=== PATIENT | male | born 1945 | race Caucasian/White ===

== ENCOUNTER 2016-03-16 20:46 | Inpatient (IN) | payer OTHER ==
[~2016-03-16] VITALS: Ht 177.8 cm; Wt 94.0 kg
[~2016-03-16 20:46] MED LIST: ASPI81TA28 PO; ISON300T4 PO; LSN/10125 PO; MULT-916 PO
[2016-03-16] MEDS ORDERED: SODIUM CHLORIDE 0.9% 1000ML 1,000 ML IV STA (20:57)
[2016-03-16] MEDS ORDERED: ALUMINUM/MAGNESIUM SUSP 30 ML UDC PO STA (20:57)
[2016-03-16] MEDS ORDERED: LIDOCAINE HCL/D5W 4 MG/ML 2000 MG/500 ML BAG IV STA (20:57)
[2016-03-16] MEDS ORDERED: PANTOprazole INJ 40 MG in SYRINGE 0 ML IV ONE (21:00)
--- NOTE | 2016-03-16 21:13 | EMERGENCY ROOM VISIT NOTE ---
History Report prepared by Reyna: Letty Moore Under the Supervision of: Dr. Darryl Floyd D.O. 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 The patient describes the pain as an ache and is worsened when he takes a deep breath. The patient states that he was lifting an object when the pain started. The patient states that he felt he had indigestion earlier and took a Tums. The patient's daughter states that the patient takes aspirin daily along with his Lisinopril for hypertension. The patient states that he also has been experiencing an ongoing clear productive cough for about 5 months but denies any fevers. The patient states that he had a stress done in 2011 with no significant findings. He denies any history of blood clots in his lungs or legs. 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 A total of 10 systems reviewed and were otherwise negative. Past Medical & Surgical Medical Problems: (1) Hypertension (2) Irritable bowel syndrome (3) Ventricular tachycardia Surgical Problems: (1) Hx of cholecystectomy Family History FH: myocardial infarction Pacemaker Social History Smoking Status: Never Smoker Alcohol Use: none Marital Status: Occupation Status: employed Current/Historical Medications Scheduled Aspirin (Aspirin Ec), 81 MG PO DAILY Hctz/Lisinopril (Lisinopril/Hctz 10/12.5 Mg), 1 TAB PO DAILY Multiple Vitamins W/ Minerals (Multivitamin Adults 50+), 1 TAB PO DAILY Allergies Coded Allergies: BEE STING (Verified Allergy, Severe, swelling, 03/16/16) Isoniazid (Unverified Allergy, Unknown, "HYPOTENSION, HYPERHIDROSIS", 03/16) Propoxyphene (Verified Allergy, Unknown, 03/16/16) Wasp (Verified Allergy, Unknown, SWELLING, 03/16/16) Morphine (Verified Adverse Reaction, Severe, DECREASES B/P AND PULSE, 03/16) Physical Exam Vital Signs Date Time Temp Pulse Resp B/P Pulse Ox O2 Delivery O2 Flow Rate FiO2 03/16/16 23:35 63 20 151/83 97 03/16/16 23:14 56 139/88 97 Room Air 03/16/16 23:05 78 03/16/16 22:59 54 138/93 95 Room Air 03/16/16 22:45 68 20 157/72 95 Room Air 03/16/16 22:15 76 20 170/97 96 Room Air 03/16/16 22:00 73 18 139/85 97 Room Air 03/16/16 21:45 78 20 139/72 96 Room Air 03/16/16 21:30 69 18 157/71 95 Room Air 03/16/16 21:12 75 03/16/16 21:10 96 Room Air 03/16/16 21:07 96 Room Air 03/16/16 21:06 74 18 164/74 96 Room Air 03/16/16 20:47 36.7 43 18 183/78 94 Room Air Physical Exam GENERAL: Patient is awake, alert, and in no acute distress. Patient is resting comfortably and showing no signs of anxiety EYES: The conjunctivae are clear. The pupils are round and reactive. EARS, NOSE, MOUTH AND THROAT: The nose is without any evidence of any deformity. Mucous membranes are moist tongue is midline NECK: The neck is nontender and supple. RESPIRATORY: Normal respiratory effort is noted there is no evidence of wheezing rhonchi or rales CARDIOVASCULAR: Ectopy noted to auscultation. no definite murmur was appreciated. GASTROINTESTINAL: The abdomen is soft. Bowel sounds are present in all quadrants. Abdomen is nontender MUSCULOSKELETAL/EXTREMITIES: There is no evidence of gross deformity full range of motion is noted in the hips and shoulders SKIN: There is no obvious evidence of any rash. There are no petechiae, pallor or cyanosis noted. Trace pedal edema noted bilaterally. NEUROLOGIC: Patient is awake alert and oriented x3. Medical Decision & Procedures ER Provider Diagnostic Interpretation: X-ray results as stated below per interpretation by me and the radiologist. SINGLE VIEW CHEST CLINICAL HISTORY: Atypical chest pain. FINDINGS: An AP, portable, upright chest radiograph is compared to study dated 08/28/2015. The examination is degraded by portable technique, apical lordotic positioning, and patient rotation. Cardiac pads are in place. The heart is enlarged and there is atherosclerotic calcification of the thoracic aorta. There is mild central pulmonary vascular congestion. Chronic interstitial thickening is similar to previous. No airspace consolidation, large pleural effusion, or pneumothorax is seen. The skeletal structures are osteopenic. The bony thorax is grossly intact. IMPRESSION: Cardiomegaly with evidence of mild congestive failure. Electronically signed by: Guanaco Escobar M.D. 03/16/2016 9:30 PM Dictated Date/Time: 03/16/2016 9:29 PM Laboratory Results 03/16/16 21:00 Red Blood Count 4.73, Mean Corpuscular Volume 90.3, Mean Corpuscular Hemoglobin 31.5, Mean Corpuscular Hemoglobin Concent 34.9, Mean Platelet Volume 9.6, Neutrophils (%) (Auto) 53.3, Lymphocytes (%) (Auto) 36.1, Monocytes (%) (Auto) 8.5, Eosinophils (%) (Auto) 1.7, Basophils (%) (Auto) 0.3, Neutrophils # (Auto) 3.77, Lymphocytes # (Auto) 2.55, Monocytes # (Auto) 0.60, Eosinophils # (Auto) 0.12, Basophils # (Auto) 0.02 03/16/16 21:00 Test 03/16/16 21:00 03/16/16 21:09 White Blood Count 7.07 K/uL (4.8-10.8) Red Blood Count 4.73 M/uL (4.7-6.1) Hemoglobin 14.9 g/dL (14.0-18.0) Hematocrit 42.7 % (42-52) Mean Corpuscular Volume 90.3 fL (80-100) Mean Corpuscular Hemoglobin 31.5 pg (25-34) Mean Corpuscular Hemoglobin Concent 34.9 g/dl (32-36) Platelet Count 187 K/uL (130-400) Mean Platelet Volume 9.6 fL (7.4-10.4) Neutrophils (%) (Auto) 53.3 % Lymphocytes (%) (Auto) 36.1 % Monocytes (%) (Auto) 8.5 % Eosinophils (%) (Auto) 1.7 % Basophils (%) (Auto) 0.3 % Neutrophils # (Auto) 3.77 K/uL (1.4-6.5) Lymphocytes # (Auto) 2.55 K/uL (1.2-3.4) Monocytes # (Auto) 0.60 K/uL (0.11-0.59) Eosinophils # (Auto) 0.12 K/uL (0-0.5) Basophils # (Auto) 0.02 K/uL (0-0.2) RDW Standard Deviation 45.3 fL (36.4-46.3) RDW Coefficient of Variation 13.7 % (11.5-14.5) Immature Granulocyte % (Auto) 0.1 % Immature Granulocyte # (Auto) 0.01 K/uL (0.00-0.02) Prothrombin Time 10.7 SECONDS (9.0-12.0) Prothromb Time International Ratio 1.0 (0.9-1.1) Activated Partial Thromboplast Time 27.2 SECONDS (21.0-31.0) Partial Thromboplastin Ratio 1.0 Anion Gap 11.0 mmol/L (3-11) Est Creatinine Clear Calc Drug Dose 60.6 ml/min Estimated GFR () 63.2 Estimated GFR (Non- 54.5 BUN/Creatinine Ratio 16.1 (10-20) Calcium Level 9.9 mg/dl (8.5-10.1) Magnesium Level 2.1 mg/dl (1.8-2.4) Total Bilirubin 0.8 mg/dl (0.2-1) Direct Bilirubin 0.1 mg/dl (0-0.2) Aspartate Amino Transf (AST/SGOT) 20 U/L (15-37) Alanine Aminotransferase (ALT/SGPT) 16 U/L (12-78) Alkaline Phosphatase 87 U/L (45-117) Total Creatine Kinase 77 U/L (39-308) Creatine Kinase MB 2.5 ng/ml (0.5-3.6) Creatine Kinase MB Ratio 3.2 (0-3.0) Pro-B-Type Natriuretic Peptide 667 pg/ml (0-900) Total Protein 7.4 gm/dl (6.4-8.2) Albumin 3.8 gm/dl (3.4-5.0) Lipase 156 U/L (73-393) Thyroid Stimulating Hormone (TSH) 2.700 uIu/ml (0.300-4.500) Free Thyroxine 1.35 ng/dl (0.80-1.60) Bedside Troponin I 0.020 ng/ml (0-0.045) Laboratory results per my review. Medications Administered Medications (Trade) Dose Ordered Sig/Leonidas Route Start Time Stop Time Status Last Admin Dose Admin Sodium Chloride (Nss 1000ml) 1,000 ml @ 999 mls/hr Q1H1M STAT IV 03/16/16 20:57 03/16/16 21:57 DC 03/16/16 21:20 999 MLS/HR Al Hydroxide/Mg Hydroxide 30 ml 30 ml NOW STAT PO 03/16/16 20:57 03/16/16 21:00 DC 03/16/16 21:20 30 ML Pantoprazole Sodium/Syringe (Protonix Inj/ Syringe) 10 ml @ 5 mls/min NOW ONCE IV 03/16/16 21:00 03/16/16 21:01 DC 03/16/16 21:58 5 MLS/MIN Lidocaine HCl/ Dextrose 2000 mg 2,000 mg NOW STAT IV 03/16/16 20:57 03/16/16 21:00 DC 03/16/16 21:20 2,000 MG Amiodarone HCL/ Dextrose (Nexterone / D5w) 200 ml @ 33.3 mls/hr Q6H1M IV 03/16/16 23:30 03/17/16 05:30 03/16/16 23:28 33.3 MLS/HR ECG Indication: chest pain Rate (beats per minute): 84 Rhythm: sinus rhythm Findings: PVC (Frequent), other (No acute ST segment abnormalities. Nonsustained wide complex tachycardia noted.) Comparison ECG Date: August 28, 2015 Change: Changes are new compared to previous ECG. ED Course 2053: The patient was evaluated in room C5. A complete history and physical examination were performed. 2055: The patient was moved from C5 to B1. 2056: Ordered Lidocaine HCl/ Dextrose 2,000 mg IV, Maalox Susp 30 ml PO, NSS 1, 000 ml @ 999 mls/hr IV 2099: Ordered Pantoprazole Sodium 40 mg/ Syringe 10 ml @ 5 mls/min IV. 2129: Ordered Lidocaine HCl/ Dextrose 500 ml @ 30 mls/hr IV. 2144: I discussed the case with Dr. Valerio [facility] Hospitalist. He agreed to evaluate the patient for further management and care. Medical Decision Differential diagnosis: Etiologies such as cardiac ischemia, aortic dissection, pulmonary embolism, pneumonia, pneumothorax, musculoskeletal, infections, pericarditis, myocarditis , esophageal rupture, gastrointestinal, as well as others were entertained. Nursing notes reviewed. The patient's previous electronic medical records reviewed. The patient is a 70-year-old male who presented to the emergency department for an evaluation of chest pain. The patient was describing left-sided chest pain which started while he was doing heavy lifting this afternoon. The patient's also noticed episodes of palpitations. He denies having any dizziness or near- syncope. He was found have frequent PVCs but then had episodes of nonsustained wide complex tachycardia noted on the sweat band sewer. The patient was treated with aspirin and IV fluids and IV Lidocaine in the emergency department. On subsequent reevaluation he was feeling much better. I discussed the patient's laboratory and radiographic studies with him. I also discussed his case with the on-call [facility] hospitalist group. They've agreed to evaluate the patient in the emergency apartment for further management and disposition. Consults Time Called: 2129 Consulting Physician: Dr. Teodoro ZARATE [facility]. Returned Call: 2144 I discussed the case with Dr. Teodoro Carlin. He agreed to evaluate the patient for further management and care. Impression Primary Impression: Left sided chest pain Additional Impression: Nonsustained ventricular tachycardia Critical Care I have personally spent greater than 45 minutes of critical care time in the direct management of this patient. This includes bedside care, interpretation of diagnostic studies, and testing, discussion with consultants, patient, and family members, and other required patient management activities. This 45 minutes is in excess of all separately billable procedures. Scribe Attestation The scribe's documentation has been prepared under my direction and personally reviewed by me in its entirety. I confirm that the note above accurately reflects all work, treatment, procedures, and medical decision making performed by me. Departure Information Dispostion Being Evaluated By Hospitalist Referrals Jhonny Sanders M.D. (PCP) Problem Qualifiers
[2016-03-16 21:15] LABS: BASO % 0.3 %; BASO ABS # 0.02 K/uL (0-0.2); COMPLETE YES; EOS % 1.7 %; HEMATOCRIT 42.7 % (42-52); IG% 0.1 %; LYMPH % 36.1 %; LYMPH ABS # 2.55 K/uL (1.2-3.4); MEAN CELL VOLUME 90.3 fL (80-100); MEAN CORPUSCULAR HEMOGLOBIN 31.5 pg (25-34); MEAN CORPUSCULAR HGB CONC 34.9 g/dl (32-36); MEAN PLATELET VOLUME 9.6 fL (7.4-10.4); MONO % 8.5 %; NEUT % 53.3 %; PLATELET COUNT 187 K/uL (130-400); RED BLOOD COUNT 4.73 M/uL (4.7-6.1); WHITE BLOOD COUNT 7.07 K/uL (4.8-10.8)
[2016-03-16 21:26] LABS: PROTHROMBIN TIME (PATIENT) 10.7 SECONDS (9.0-12.0)
[2016-03-16] MEDS ORDERED: LIDOCAINE / D5W 4MG/ML DRIP 500 ML IV PRN (21:30)
[2016-03-16 21:32] LABS: BUN/CREATININE RATIO 16.1 (10-20); CALCIUM 9.9 mg/dl (8.5-10.1); CREATININE 1.3 mg/dl (0.60-1.40); MAGNESIUM 2.1 mg/dl (1.8-2.4); POTASSIUM 4.1 mmol/L (3.5-5.1)
--- NOTE | 2016-03-16 21:32 | DIAGNOSTIC IMAGING REPORT ---
SINGLE VIEW CHEST CLINICAL HISTORY: Atypical chest pain. FINDINGS: An AP, portable, upright chest radiograph is compared to study dated 08/28/2015. The examination is degraded by portable technique, apical lordotic positioning, and patient rotation. Cardiac pads are in place. The heart is enlarged and there is atherosclerotic calcification of the thoracic aorta. There is mild central pulmonary vascular congestion. Chronic interstitial thickening is similar to previous. No airspace consolidation, large pleural effusion, or pneumothorax is seen. The skeletal structures are osteopenic. The bony thorax is grossly intact. IMPRESSION: Cardiomegaly with evidence of mild congestive failure. Electronically signed by: Guanaco Escobar M.D. 03/16/2016 9:30 PM Dictated Date/Time: 03/16/2016 9:29 PM
[2016-03-16 21:41] LABS: CKMB/CK RATIO 3.2 (0-3.0); THYROID STIMULATING HORMONE 2.7 uIu/ml (0.300-4.500)
[2016-03-16] MEDS ORDERED: AMIODARONE IV BOLUS / DRIP IV STA (22:44)
[2016-03-16] MEDS ORDERED: LIDOCAINE / D5W 4MG/ML DRIP 500 ML IV SCH (22:45)
[2016-03-16] MEDS ORDERED: NITROGLYCERIN 0.4 MG SL PER TAB CHARGE SL PRN (23:00)
[2016-03-16] MEDS ORDERED: LORAZEPAM 2 MG/ML 1 ML VIAL IV PRN (23:00)
[2016-03-16] MEDS ORDERED: AMIODARONE / D5W 200 ML IV SCH (23:30)
[2016-03-16 23:45] VITALS: BP 152/84; PULSE 72; TEMP 36.6; Ht 177.8 cm; Wt 94.0 kg
[2016-03-17] VITALS (13 sets, daily range): BP systolic 103–140; BP diastolic 64–97; PULSE 49–74; TEMP 36.4–36.7; O2SAT 95–98
[2016-03-17] MEDS ORDERED: HEPARIN 25,000 UNIT/500ML D5W 500 ML IV PRN (01:00)
[2016-03-17] MEDS: NSS + 20MEQ KCL 1000ML 1,000 ML IV SCH ×2 (03:15→11:00)
[2016-03-17] MEDS ORDERED: AMIODARONE / D5W 200 ML IV SCH (05:30)
--- NOTE | 2016-03-17 05:57 | History and Physical ---
History & Physical Date & Time of Service: Mar 17, 2016 at 05:48 Chief Complaint: Ventricular Tachycardia Primary Care Physician: Jhonny Sanders M.D. History of Present Illness Source: patient, spouse The patient is a 70-year-old male who presents emergency department with left- sided pleuritic chest pain that began about 4 hours prior to arrival. He has had a cough productive of clear sputum over the past 5 months. He takes aspirin and lisinopril for hypertension. He. Earlier today he had indigestion , so he took Tums without relief. Past Medical/Surgical History Medical Problems: (1) Hypertension Status: Chronic (2) Irritable bowel syndrome Status: Chronic Surgical Problems: (1) Hx of cholecystectomy Status: Resolved Family History FH: myocardial infarction Pacemaker Social History Smoking Status: Never Smoker Smokeless Tobacco Use: No Alcohol Use: none Drug Use: cocaine Marital Status: Housing status: lives with family Occupational Status: employed Immunizations History of Influenza Vaccine: No History of Tetanus Vaccine?: utd History of Pneumococcal: No History of Hepatitis B Vaccine: No Multi-Drug Resistant Organisms History of MDRO: No Allergies Coded Allergies: BEE STING (Verified Allergy, Severe, swelling, 03/16/16) Isoniazid (Unverified Allergy, Unknown, "HYPOTENSION, HYPERHIDROSIS", 03/16) Propoxyphene (Verified Allergy, Unknown, 03/16/16) Wasp (Verified Allergy, Unknown, SWELLING, 03/16/16) Morphine (Verified Adverse Reaction, Severe, DECREASES B/P AND PULSE, 03/16) Home Medications Scheduled Aspirin (Aspirin Ec), 81 MG PO DAILY Hctz/Lisinopril (Lisinopril/Hctz 10/12.5 Mg), 1 TAB PO DAILY Multiple Vitamins W/ Minerals (Multivitamin Adults 50+), 1 TAB PO DAILY Review of Systems The patient denies lower extremity swelling, vision change, hearing change, sore throat, fevers, chills, sweats, weight change, fatigue, nausea, vomiting, abdominal pain, pelvic pain, blood in urine or stool, dysuria, urinary frequency or urgency, headache, memory loss, rash, abnormal bruising or bleeding, focal or generalized weakness, numbness or tingling in arms or legs, arthralgias or myalgias, back or neck pain, night sweats, or allergy symptoms. The review of systems is otherwise negative other than for that already noted above, and at least 10 systems have been reviewed. Physical Exam Vital Signs Date Time Temp Pulse Resp B/P Pulse Ox O2 Delivery O2 Flow Rate FiO2 03/17/16 04:00 36.6 66 20 121/71 98 Nasal Cannula 2.0 03/17/16 04:00 98 Nasal Cannula 2.0 03/17/16 02:00 36.6 58 15 111/74 98 Nasal Cannula 2.0 03/16/16 23:45 36.6 72 20 152/84 Room Air 03/16/16 23:35 63 20 151/83 97 03/16/16 23:14 56 139/88 97 Room Air 03/16/16 23:05 78 03/16/16 22:59 54 138/93 95 Room Air 03/16/16 22:45 68 20 157/72 95 Room Air 03/16/16 22:15 76 20 170/97 96 Room Air 03/16/16 22:00 73 18 139/85 97 Room Air 03/16/16 21:45 78 20 139/72 96 Room Air 03/16/16 21:30 69 18 157/71 95 Room Air 03/16/16 21:12 75 03/16/16 21:10 96 Room Air 03/16/16 21:07 96 Room Air 03/16/16 21:06 74 18 164/74 96 Room Air 03/16/16 20:47 36.7 43 18 183/78 94 Room Air The patient is awake, well-developed and adequately nourished, alert and oriented 3, normocephalic and atraumatic, lying in bed and in no acute distress. HEENT--PERRL, EOMI, mucous membranes moist, and oropharynx normal. Neck--supple, no JVD or bruits, thyroid normal, trachea midline, no adenopathy. Heart--normal S1 and S2, with frequent ectopy, no murmurs, rubs or gallops. Lungs--clear bilaterally with good air movement, no respiratory distress, no accessory muscle use. Abdomen--normal bowel sounds and soft, nontender and nondistended, no hernias or masses, no organomegaly. Extremities--no cyanosis, clubbing or edema. There are good distal pulses b/l. Dermatologic--normal skin turgor, normal color, warm and dry, no abnormal lymph nodes, no rash. Neurologic--cranial nerves II through XII grossly intact, motor and sensory examination normal. Rheumatologic--normal range of motion, nontender, muscles and joints. Psychiatric--normal affect. Diagnostics Laboratory Results Results Past 24 Hours Test 03/16/16 21:00 03/16/16 21:09 03/17/16 04:44 Range/Units White Blood Count 7.07 4.8-10.8 K/uL Red Blood Count 4.73 4.7-6.1 M/uL Hemoglobin 14.9 14.0-18.0 g/dL Hematocrit 42.7 42-52 % Mean Corpuscular Volume 90.3 80-100 fL Mean Corpuscular Hemoglobin 31.5 25-34 pg Mean Corpuscular Hemoglobin Concent 34.9 32-36 g/dl Platelet Count 187 130-400 K/uL Mean Platelet Volume 9.6 7.4-10.4 fL Neutrophils (%) (Auto) 53.3 % Lymphocytes (%) (Auto) 36.1 % Monocytes (%) (Auto) 8.5 % Eosinophils (%) (Auto) 1.7 % Basophils (%) (Auto) 0.3 % Neutrophils # (Auto) 3.77 1.4-6.5 K/uL Lymphocytes # (Auto) 2.55 1.2-3.4 K/uL Monocytes # (Auto) 0.60 0.11-0.59 K/uL Eosinophils # (Auto) 0.12 0-0.5 K/uL Basophils # (Auto) 0.02 0-0.2 K/uL RDW Standard Deviation 45.3 36.4-46.3 fL RDW Coefficient of Variation 13.7 11.5-14.5 % Immature Granulocyte % (Auto) 0.1 % Immature Granulocyte # (Auto) 0.01 0.00-0.02 K/uL Prothrombin Time 10.7 9.0-12.0 SECONDS Prothromb Time International Ratio 1.0 0.9-1.1 Activated Partial Thromboplast Time 27.2 21.0-31.0 SECONDS Partial Thromboplastin Ratio 1.0 Sodium Level 143 136-145 mmol/L Potassium Level 4.1 3.5-5.1 mmol/L Chloride Level 107 98-107 mmol/L Carbon Dioxide Level 25 21-32 mmol/L Anion Gap 11.0 3-11 mmol/L Blood Urea Nitrogen 21 7-18 mg/dl Creatinine 1.30 0.60-1.40 mg/dl Est Creatinine Clear Calc Drug Dose 60.6 ml/min Estimated GFR () 63.2 Estimated GFR (Non- 54.5 BUN/Creatinine Ratio 16.1 10-20 Random Glucose 98 70-99 mg/dl Calcium Level 9.9 8.5-10.1 mg/dl Magnesium Level 2.1 1.8-2.4 mg/dl Total Bilirubin 0.8 0.2-1 mg/dl Direct Bilirubin 0.1 0-0.2 mg/dl Aspartate Amino Transf (AST/SGOT) 20 15-37 U/L Alanine Aminotransferase (ALT/SGPT) 16 12-78 U/L Alkaline Phosphatase 87 45-117 U/L Total Creatine Kinase 77 39-308 U/L Creatine Kinase MB 2.5 0.5-3.6 ng/ml Creatine Kinase MB Ratio 3.2 0-3.0 Pro-B-Type Natriuretic Peptide 667 0-900 pg/ml Total Protein 7.4 6.4-8.2 gm/dl Albumin 3.8 3.4-5.0 gm/dl Lipase 156 73-393 U/L Thyroid Stimulating Hormone (TSH) 2.700 0.300-4.500 uIu/ml Free Thyroxine 1.35 0.80-1.60 ng/dl Bedside Troponin I 0.020 0-0.045 ng/ml Microbiology Results 03/17/16 MRSA DNA Surveillance Screen, Ike Batch Pending 03/16/16 MRSA DNA Surveillance Screen - Final, Complete Specimen Negative for MRSA by DNA Probe Diagnostic Radiology Patient Name: DARBY DUENAS SR Unit Number: [id number] Dictated: 03/16/162128 Transcribed: 03/16/162128 EV Printed Date/Time: [~ rep prt dt]/[~ rep prt tm] [~ rep ct labl] - [~ rep ct ivnm] [facility] [place] [address] Dictated: 03/16/162128 Transcribed: 03/16/162128 EV Printed Date/Time: [~ rep prt dt]/[~ rep prt tm] [~ rep ct labl] - [~ rep ct ivnm] CLINICAL HISTORY: Atypical chest pain. FINDINGS: An AP, portable, upright chest radiograph is compared to study dated 08/28/2015. The examination is degraded by portable technique, apical lordotic positioning, and patient rotation. Cardiac pads are in place. The heart is enlarged and there is atherosclerotic calcification of the thoracic aorta. There is mild central pulmonary vascular congestion. Chronic interstitial thickening is similar to previous. No airspace consolidation, large pleural effusion, or pneumothorax is seen. The skeletal structures are osteopenic. The bony thorax is grossly intact. IMPRESSION: Cardiomegaly with evidence of mild congestive failure. Electronically signed by: Guanaco Escobar M.D. 03/16/2016 9:30 PM Dictated Date/Time: 03/16/2016 9:29 PM The status of this report is Signed. Draft = Not yet reviewed or approved by Radiologist. Signed = Reviewed and approved by Radiologist. <AttendingPhy></AttendingPhy> <FamilyPhy>Jhonny Sanders M.D.</FamilyPhy> < PrimaryPhy>Jhonny Sanders M.D.</PrimaryPhy> <UnitNumber>[id number]</UnitNumber > <VisitNumber>[id number]</VisitNumber> <PatientName>DARBY DUENAS SR</ PatientName> <DateOfBirth>1945</DateOfBirth> <Location>[facility]</Location> < ServiceDate>03/16/16</ServiceDate> <MNE>ESINDI</MNE> <OrderingPhy>Darryl Floyd D.O.</OrderingPhy> <OrderingPhyMNE>f rep ord dr duncan</OrderingPhyMNE> <DictatingPhyMNE>f rep dict dr duncan</DictatingPhyMNE> <CCListMNE>f rep ct florenciae</ CCListMNE> <AdmittingPhyMNE>f pt admit dr duncan</AdmittingPhyMNE> <AttendingPhyMNE >f pt attend dr duncan</AttendingPhyMNE> <ConsultingPhyMNE>f pt consult dr duncan</ConsultingPhyMNE> <FamilyPhyMNE>f pt fam dr duncan</FamilyPhyMNE> <OtherPhyMNE>f pt other dr duncan</OtherPhyMNE> < PrimaryPhyMNE>f pt prim care dr duncan</PrimaryPhyMNE> <ReferringPhyMNE>f pt referring dr duncan</ReferringPhyMNE> EKG Rhythm strip while in emergency department showed episodes of nonsustained V. tach. Impression Assessment and Plan Ventricular tachycardia--the patient had been started on lidocaine drip by the emergency department personnel by time I had seen him, and was still having frequent ectopy at that time. There were no correctable abnormalities on his electrolytes, and he was not anemic. He's had no previous occurrence of arrhythmias. The patient will be transitioned to an amiodarone drip, so that when it comes time to discharge him, it'll be easier to discharge him on amiodarone oral dosing. There will be an overlap interval with the lidocaine drip and the amiodarone drip, and the lidocaine drip will gradually be discontinued. The patient will be admitted to the ICU, will have a 2-D echocardiogram with Dopplers, and we'll consult cardiology. Will stop lisinopril/HCTZ 10/12.5 daily. We'll continue aspirin 81 mg by mouth daily. He 'll be placed on normal saline with potassium chloride 20 mEq at 100 ML's per hour. He'll have serial laboratories performed, including CBC with differential , basic metabolic panel, magnesium and cardiac enzymes. Level of Care Critical Care Advanced Directives Existing Advance Directive: No Existing Living Will: No Existing Power of Extrusion Die Coordinator: No Resuscitation Status FULL RESUSCITATION VTE Prophylaxis VTE Risk Assessment Done? Y/N: Yes Risk Level: High Given or contraindicated: Unfractionated heparin SQ Social Service Consult None Apply
[2016-03-17 06:55] LABS: BASO % 0.2 %; BASO ABS # 0.01 K/uL (0-0.2); COMPLETE YES; EOS % 1.5 %; HEMATOCRIT 39.8 % (42-52); IG% 0.2 %; LYMPH % 31.5 %; LYMPH ABS # 1.86 K/uL (1.2-3.4); MEAN CELL VOLUME 90.9 fL (80-100); MEAN CORPUSCULAR HEMOGLOBIN 31.1 pg (25-34); MEAN CORPUSCULAR HGB CONC 34.2 g/dl (32-36); MEAN PLATELET VOLUME 9.4 fL (7.4-10.4); NEUT % 57.6 %; PLATELET COUNT 162 K/uL (130-400); RED BLOOD COUNT 4.38 M/uL (4.7-6.1); WHITE BLOOD COUNT 5.91 K/uL (4.8-10.8)
[2016-03-17 07:11] LABS: INR 1.1 (0.9-1.1); PARTIAL THROMBOPLASTIN RATIO 2.2; PROTHROMBIN TIME (PATIENT) 11.7 SECONDS (9.0-12.0)
[2016-03-17 07:31] LABS: ALKALINE PHOSPHATASE 75 U/L (45-117); ALT/SGPT 15 U/L (12-78); AST/SGOT 14 U/L (15-37); BLOOD UREA NITROGEN 17 mg/dl (7-18); BUN/CREATININE RATIO 12.8 (10-20); CALCIUM 8.5 mg/dl (8.5-10.1); CARBON DIOXIDE 26 mmol/L (21-32); CHLORIDE 106 mmol/L (98-107); CKMB/CK RATIO 3.1 (0-3.0); GLUCOSE 105 mg/dl (70-99); SODIUM 140 mmol/L (136-145)
[2016-03-17 07:41] LABS: PHOSPHORUS 2.7 mg/dl (2.5-4.9)
[2016-03-17] MEDS ORDERED: PNEUMOCOCCAL POLYSACCHARIDES 25 MCG/0.5 ML VIAL/SYR IM. ONE (08:00)
[2016-03-17] MEDS ORDERED: PNEUMOCOCCAL ADMINISTRATION CHARGE ONE (08:00)
--- NOTE | 2016-03-17 08:01 | DIAGNOSTIC IMAGING REPORT ---
CHEST ONE VIEW PORTABLE CLINICAL HISTORY: Shortness of breath. Atypical chest pain. History of V. tach. COMPARISON STUDY: 03/16/2016 FINDINGS: The heart remains mildly enlarged. There is mild central pulmonary vascular congestion.. There is no focal pulmonary consolidation. An opacity at the left lung base, likely are presenting a fat pad or atelectatic change.[ IMPRESSION: Mild central pulmonary vascular congestion. No evidence of overt edema. No evidence of focal pulmonary consolidation Electronically signed by: Marko Aldana M.D. 03/17/2016 7:59 AM Dictated Date/Time: 03/17/2016 7:58 AM
[2016-03-17] MEDS: ASPIRIN 81 MG ECTAB PO SCH (09:25)
[2016-03-17] MEDS: CEROVITE ADV FORMULA TAB PO SCH (09:25)
[2016-03-17] MEDS: ACETAMINOPHEN 325 MG TAB PO PRN ×2 (11:42→19:29)
[2016-03-17] MEDS ORDERED: NURSING VERBAL MED ORDER ONE (11:45)
--- NOTE | 2016-03-17 12:40 | Progress Note ---
Subjective Date of Service: Mar 17, 2016. Subjective pt has no further symptoms, will be seen by cardiology today, has focal costochorndral joint tenderness around 5th left joint area-reproducible Problem List Medical Problems: (1) Fever Status: Acute (2) Left sided chest pain Status: Acute (3) Nonsustained ventricular tachycardia Status: Acute Review of Systems Constitutional: No chills, No fever Respiratory: No cough Cardiac: + chest pain, + palpitations, No edema Abdomen: No diarrhea, No nausea, No pain, No vomiting Male : No dysuria, No urinary frequency Objective Vital Signs Date Time Temp Pulse Resp B/P Pulse Ox O2 Delivery O2 Flow Rate FiO2 03/17/16 06:00 65 20 140/97 98 Nasal Cannula 2.0 03/17/16 04:00 36.6 66 20 121/71 98 Nasal Cannula 2.0 03/17/16 04:00 98 Nasal Cannula 2.0 03/17/16 02:00 36.6 58 15 111/74 98 Nasal Cannula 2.0 03/16/16 23:45 36.6 72 20 152/84 Room Air 03/16/16 23:35 63 20 151/83 97 03/16/16 23:14 56 139/88 97 Room Air 03/16/16 23:05 78 03/16/16 22:59 54 138/93 95 Room Air 03/16/16 22:45 68 20 157/72 95 Room Air 03/16/16 22:15 76 20 170/97 96 Room Air 03/16/16 22:00 73 18 139/85 97 Room Air 03/16/16 21:45 78 20 139/72 96 Room Air 03/16/16 21:30 69 18 157/71 95 Room Air 03/16/16 21:12 75 03/16/16 21:10 96 Room Air 03/16/16 21:07 96 Room Air 03/16/16 21:06 74 18 164/74 96 Room Air 03/16/16 20:47 36.7 43 18 183/78 94 Room Air Physical Exam General Appearance: WD/WN, + mild distress Neck: supple, no JVD Respiratory/Chest: chest non-tender, lungs clear, normal breath sounds Cardiovascular: regular rate, rhythm, no murmur Abdomen: normal bowel sounds, non tender, soft Extremities: no pedal edema, no calf tenderness Neurologic/Psychiatric: alert, oriented x 3 Laboratory Results Last 24 Hours Test 03/16/16 21:00 03/16/16 21:09 03/17/16 05:57 03/17/16 06:48 White Blood Count 7.07 K/uL 5.91 K/uL Red Blood Count 4.73 M/uL 4.38 M/uL Hemoglobin 14.9 g/dL 13.6 g/dL Hematocrit 42.7 % 39.8 % Mean Corpuscular Volume 90.3 fL 90.9 fL Mean Corpuscular Hemoglobin 31.5 pg 31.1 pg Mean Corpuscular Hemoglobin Concent 34.9 g/dl 34.2 g/dl Platelet Count 187 K/uL 162 K/uL Mean Platelet Volume 9.6 fL 9.4 fL Neutrophils (%) (Auto) 53.3 % 57.6 % Lymphocytes (%) (Auto) 36.1 % 31.5 % Monocytes (%) (Auto) 8.5 % 9.0 % Eosinophils (%) (Auto) 1.7 % 1.5 % Basophils (%) (Auto) 0.3 % 0.2 % Neutrophils # (Auto) 3.77 K/uL 3.41 K/uL Lymphocytes # (Auto) 2.55 K/uL 1.86 K/uL Monocytes # (Auto) 0.60 K/uL 0.53 K/uL Eosinophils # (Auto) 0.12 K/uL 0.09 K/uL Basophils # (Auto) 0.02 K/uL 0.01 K/uL RDW Standard Deviation 45.3 fL 45.5 fL RDW Coefficient of Variation 13.7 % 13.7 % Immature Granulocyte % (Auto) 0.1 % 0.2 % Immature Granulocyte # (Auto) 0.01 K/uL 0.01 K/uL Prothrombin Time 10.7 SECONDS 11.7 SECONDS Prothromb Time International Ratio 1.0 1.1 Activated Partial Thromboplast Time 27.2 SECONDS 56.6 SECONDS Partial Thromboplastin Ratio 1.0 2.2 Sodium Level 143 mmol/L 140 mmol/L Potassium Level 4.1 mmol/L 4.0 mmol/L Chloride Level 107 mmol/L 106 mmol/L Carbon Dioxide Level 25 mmol/L 26 mmol/L Anion Gap 11.0 mmol/L 8.0 mmol/L Blood Urea Nitrogen 21 mg/dl 17 mg/dl Creatinine 1.30 mg/dl 1.30 mg/dl Est Creatinine Clear Calc Drug Dose 60.6 ml/min 60.8 ml/min Estimated GFR () 63.2 63.2 Estimated GFR (Non- 54.5 54.5 BUN/Creatinine Ratio 16.1 12.8 Random Glucose 98 mg/dl 105 mg/dl Calcium Level 9.9 mg/dl 8.5 mg/dl Magnesium Level 2.1 mg/dl 2.0 mg/dl Total Bilirubin 0.8 mg/dl 0.9 mg/dl Direct Bilirubin 0.1 mg/dl 0.2 mg/dl Aspartate Amino Transf (AST/SGOT) 20 U/L 14 U/L Alanine Aminotransferase (ALT/SGPT) 16 U/L 15 U/L Alkaline Phosphatase 87 U/L 75 U/L Total Creatine Kinase 77 U/L 58 U/L Creatine Kinase MB 2.5 ng/ml 1.8 ng/ml Creatine Kinase MB Ratio 3.2 3.1 Pro-B-Type Natriuretic Peptide 667 pg/ml Total Protein 7.4 gm/dl 6.5 gm/dl Albumin 3.8 gm/dl 3.2 gm/dl Lipase 156 U/L Thyroid Stimulating Hormone (TSH) 2.700 uIu/ml Free Thyroxine 1.35 ng/dl Bedside Troponin I 0.020 ng/ml Bedside Glucose 110 mg/dl Phosphorus Level 2.7 mg/dl Troponin I < 0.015 ng/ml Assessment and Plan 70 M with pleuritic chest pain, has ectopy including short runs of V tach Ectopy/V tach, was place on lidocaine gtt, admitting physician wished to change to amiodarone, will need to asses LV function by echo, did have normal stress echo in 2011, was started on Heparin infusion and will have cardiology evaluation, initial cardiac enzymes are normal, will keep heparin for at least 24 hours unless cardiology feels otherwise, started on metoprolol by cardiology , echo pending
--- NOTE | 2016-03-17 12:41 | ECHOCARDIOGRAM REPORT ---
*NOTICE TO RECEIVING REPUBLICAN AGENCY This information is strictly Confidential and protected under [place] law. [place] law prohibits you from making any further disclosure of this information unless further disclosure is expressly permitted by the written consent of the person to whom it pertains or is authorized by law. A general authorization for the release of medical or other information is not sufficient for this purpose. Hospital accepts no responsibility if the information is made available to any other person, INCLUDING THE PATIENT. Interpretation Summary * Name: DARBY DUENAS SR Study Date: 03/17/2016 11:12 AM BP: 128/71 mmHg * Patient Location: .MSICU\S\E110\S\1 HR: 54 * : 1945 (M/d/yyyy) Gender: Male Height: 70 in * Age: 70 yrs Ethnicity: [place] Weight: 219 lb * Ordering Physician: Alfonso David * Referring Physician: Self, Referred * Performed By: Andrea Dickens RCS * * Reason For Study: PVC's * BSA: 2.2 m2 * -- Conclusions -- * The left ventricle is normal in size. * There is mild concentric left ventricular hypertrophy. * Mildly reduced LVEF=50% by biplane lay's * With the PVC beats there is minimal LV contraction. * Mild global hypokinesis. * The right ventricle is normal in size and function. * The right ventricular systolic function is normal as assessed by tricuspid annular plane systolic excursion (TAPSE) (normal >1.5 cm). * Aortic valve sclerosis mild, without significant aortic valvular stenosis. * Diastolic dysfunction, Grade II (pseudonormalization pattern). * PA pressure 30-35 mm/hg Procedure Details * A complete two-dimensional transthoracic echocardiogram was performed (2D, M-mode, Doppler and color flow Doppler). Left Ventricle * The left ventricle is normal in size. * There is mild concentric left ventricular hypertrophy. * Mildly reduced LVEF=50% by biplane lay's With the PVC beats there is minimal LV contraction. Mild global hypokinesis. Right Ventricle * The right ventricle is normal in size and function. * The right ventricular systolic function is normal as assessed by tricuspid annular plane systolic excursion (TAPSE) (normal >1.5 cm). Atria * Borderline left atrial enlargement. * Right atrial size is normal. Mitral Valve * The mitral valve leaflets appear normal. There is no evidence of stenosis, fluttering, or prolapse. * There is trace mitral regurgitation. Tricuspid Valve * The tricuspid valve is not well visualized, but is grossly normal. * There is trace tricuspid regurgitation. * PA pressure 30-35 mm/hg Aortic Valve * Aortic valve sclerosis mild, without significant aortic valvular stenosis. * Mild aortic regurgitation. Pulmonic Valve * The pulmonic valve is not well seen, but is grossly normal. Great Vessels * The aortic root is normal size. Pericardium/Pleural * There is no pericardial effusion. Great Vessels * IVC not well seen Left Ventricular Diastolic Function * Diastolic dysfunction, Grade II (pseudonormalization pattern). * Indeterminate E to e' ratio MMode 2D Measurements and Calculations IVSd 1.2 cm IVSs 1.5 cm LVIDd 5.3 cm LVIDs 3.9 cm LVPWd 1.2 cm LVPWs 1.5 cm IVS/LVPW 1.0 FS 25.6 % EDV(Teich) 134.0 ml ESV(Teich) 66.9 ml EF(Teich) 50.1 % EDV(cubed) 146.9 ml ESV(cubed) 60.4 ml EF(cubed) 58.9 % % IVS thick 23.2 % % LVPW thick 28.1 % LV mass(C)d 254.2 grams LV mass(C)dI 117.2 grams/m\S\2 LV mass(C)s 227.8 grams LV mass(C)sI 105.0 grams/m\S\2 CO(Teich) 3.8 l/min CI(Teich) 1.8 l/min/m\S\2 SV(Teich) 67.1 ml SI(Teich) 30.9 ml/m\S\2 CO(cubed) 4.9 l/min CI(cubed) 2.3 l/min/m\S\2 SV(cubed) 86.5 ml SI(cubed) 39.9 ml/m\S\2 Ao root diam 3.7 cm Ao root area 10.7 cm\S\2 ACS 2.0 cm LA dimension 3.8 cm LA/Ao 1.0 LVAd ap4 37.3 cm\S\2 LVLd ap4 8.9 cm EDV(MOD-sp4) 129.0 ml LVAs ap4 23.5 cm\S\2 LVLs ap4 7.2 cm ESV(MOD-sp4) 64.0 ml EF(MOD-sp4) 50.4 % LVAd ap2 42.2 cm\S\2 LVLd ap2 9.4 cm EDV(MOD-sp2) 155.0 ml LVAs ap2 26.9 cm\S\2 LVLs ap2 7.8 cm ESV(MOD-sp2) 76.0 ml EF(MOD-sp2) 51.0 % CO(MOD-sp4) 3.7 l/min CI(MOD-sp4) 1.7 l/min/m\S\2 SV(MOD-sp4) 65.0 ml SI(MOD-sp4) 30.0 ml/m\S\2 CO(MOD-sp2) 4.5 l/min CI(MOD-sp2) 2.1 l/min/m\S\2 SV(MOD-sp2) 79.0 ml SI(MOD-sp2) 36.4 ml/m\S\2 Doppler Measurements and Calculations MV E max marty 101.7 cm/sec MV A max marty 95.3 cm/sec MV E/A 1.1 MV P1/2t max marty 117.3 cm/sec MV P1/2t 73.5 msec MVA(P1/2t) 3.0 cm\S\2 MV dec slope 467.1 cm/sec\S\2 MV dec time 0.17 sec Ao V2 max 96.1 cm/sec Ao max PG 3.7 mmHg Ao max PG (full) 0.76 mmHg AI max marty 443.9 cm/sec AI max PG 78.8 mmHg AI dec slope 174.2 cm/sec\S\2 AI P1/2t 746.2 msec LV V1 max PG 2.9 mmHg LV V1 mean PG 1.7 mmHg LV V1 max 85.6 cm/sec LV V1 mean 61.5 cm/sec LV V1 VTI 21.7 cm PA V2 max 80.6 cm/sec PA max PG 2.6 mmHg TR max marty 265.1 cm/sec
--- NOTE | 2016-03-17 13:05 | CARDIOLOGY CONSULTATION ---
DATE OF CONSULTATION: 03/17/2016 REQUESTING: Dr. Ross Adam. GMAT INSTRUCTOR: Alfonso David D.O., [facility] Cardiology for Dr. Jef Chiu, Dr. Te Sibley. REASON FOR CONSULTATION: Frequent PVCs and short runs of nonsustained VT and chest discomfort. Dear Calixto: Thank you for requesting cardiology consultation on [facility] with regards to his PVCs, chest discomfort as you are noted which was reproducible and also worse with a deep breath. He presents noting some chest discomfort. 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 He also described chest discomfort which is worse with a deep breath. He does describe an upper respiratory tract infection, specifically what sounds like sinus issues since [place] and has never been able to clear it completely. While in the Emergency Room, he was found to have short runs of nonsustained VT, although the telemetry strips are unavailable. Additionally, on an EKG he was found to have a ventricular triplet. He did not feel palpitations and he actually never does feel palpitations. He has been evaluated over this past year, he underwent echocardiography on 09/15/2015 in the [facility] office, he had normal LV size and function with mild left ventricular hypertrophy, his EF was 65%, nevertheless there were no significant valvular abnormalities. In May 2015, he underwent Holter monitoring which revealed sinus rhythm with an average heart rate of 63 beats per minute, his minimum was 47 beats per minute. There were rare PACs, he had frequent PVCs 21,448 beats, couplets, ventricular bigeminy and 13 short 3-4 beat runs of nonsustained VT, all of which were asymptomatic. In 2011, he had undergone a dobutamine stress echocardiography at [facility] prior to the potential for needing surgery. The DSE is in the notes, is reported as being normal. He notes since the beginning of March he is just sort of fell off slightly. When asking him if he is more short of breath with activity, he denies that. He does not climb stairs. 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 Denies any lightheadedness, dizziness, presyncope, syncope, lower extremity edema, symptoms of claudication. His appetite is stable, his weight is stable. Denies any bleeding, bruising, dark stools, black stools, fevers, chills, sweats, productive sputum. He does have a clearish, whitish sputum. The rest of review of systems is otherwise negative. PAST MEDICAL HISTORY: 1. 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 2. Short episodes of ventricular couplets, triplets and 4 beat runs of nonsustained VT in May 2013, which were asymptomatic. 3. History of coronary calcifications. 4. Negative dobutamine stress echo in 2011. 5. Diverticulosis. 6. Hyperlipidemia. 7. Hypertension. 8. Osteoarthritis. 9. Positive PPD. 10. Sleep apnea. 11. History of cholecystectomy. SOCIAL HISTORY: He denies any tobacco, rarely drinks alcohol. 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 He is . FAMILY HISTORY: His mom at 94. She had multiple pacemakers, dad of a heart attack at 58. His grandfather on his paternal side of a heart attack at 58. He has a brother with a heart transplant of unknown reason why. MEDICATIONS: Reviewed in electronic medical record. ALLERGIES: BEE STINGS, ISONIAZID, MORPHINE, PROPOXYPHENE AND WASP STINGS. PHYSICAL EXAMINATION: GENERAL: He is awake, alert, oriented x3. He is in no acute distress. He is a well-appearing male who looks his stated age. VITAL SIGNS: Her heart rate is 54 on amiodarone, respirations 13, sat 98%. HEENT: 2+ carotid upstrokes, no evidence of carotid bruits. Jugular venous pressure appeared normal. Sclerae are anicteric. Hearing is normal. LUNGS: Clear to auscultation bilaterally. No rales, rhonchi or wheezing. HEART: Regular rate and rhythm. No appreciable murmurs, rubs or gallops. ABDOMEN: Soft, nontender, nondistended, positive bowel sounds. EXTREMITIES: No clubbing, cyanosis or edema. SKIN: No ecchymosis or bruising. NEUROLOGIC: Gross focal. PSYCHIATRIC: His affect appeared appropriate. LABORATORY STUDIES: His troponins are negative x2. His hemoglobin was 14.9 on admission with platelet count of 187. Sodium 140, potassium 4.0, BUN 17, creatinine 1.3. AST and ALT were normal. Troponins are negative x2. His BNP was 667. His TSH and free T4 were normal. His chest x-ray, mild central pulmonary vascular congestion, but no overt heart failure. DIAGNOSTIC STUDIES: EKG this morning, sinus rhythm, PVCs in a bigeminal pattern. The PVCs have a left bundle morphology with a positive access in the inferior leads. The transition point is between V2 and V3, nonspecific T-wave changes. EKG from last evening similar with a 3 beat run of ventricular triplets. IMPRESSION: 1. Noncardiac chest pain which sounds a combination of musculoskeletal and pleuritic in nature. 2. Frequent ventricular ectopy upwards of 22,000 PVCs with ventricular couplets, triplets and short 4 beat runs by Holter monitoring. 3. Preserved left ventricular systolic function in October 2015. 4. Negative dobutamine stress echo in 2011. His laboratory studies are normal. There is nothing to suggest acute coronary syndrome. I agree his chest pain does not sound cardiac in etiology. His lisinopril and hydrochlorothiazide has been stopped. His magnesium was normal. His potassium was normal. Although he has had bradycardia in the past, I would try low dose beta-blockers to try to suppress his ventricular ectopy. If you look at indications to consider a PVC ablation, it would be LV dysfunction, symptomatic palpitations or increasing shortness of breath or fatigue with activity related to his underlying ectopy or unexplained syncope. I would recommend an echocardiogram just to make sure he does not have a tachy induced cardiomyopathy since this summer. He can be started on low dose beta-blockers with his average HR on holter at 65 BPM He should have also have an ischemic assessment as it has been 4 years and assessment of the RV to look for ARVD. His pleuritic CP can be treated with NSAIds Further recommendations will be forthcoming. This was all discussed with Dr. Adam. [facility]
--- NOTE | 2016-03-17 16:28 | Progress Note ---
Progress Note Patient Safety Manager: Patient has been seen by cardiology and has been taken off amiodarone. Echo report reviewed. He is being started on metoprolol and is being transferred to telemetry. Discussed with Dr. Adam and I am not going to see the patient. Please do not charge him for an human resource management instructor consult.
[2016-03-17] MEDS ORDERED: KETOROLAC TROMETHAMINE 15 MG/ML VIAL IV PRN (16:30)
[2016-03-17] MEDS: METOPROLOL SUCC 25MG EXT REL TAB PO SCH (21:41)
[2016-03-18] MEDS ORDERED: METOPROLOL SUCC 25MG EXT REL TAB PO SCH
[2016-03-18 03:53] VITALS: BP 116/69; PULSE 55; TEMP 36.4; O2SAT 97
[2016-03-18 06:35] LABS: BASO % 0.4 %; BASO ABS # 0.02 K/uL (0-0.2); COMPLETE YES; EOS % 2.1 %; HEMATOCRIT 39.4 % (42-52); IG% 0.2 %; LYMPH % 28.1 %; LYMPH ABS # 1.44 K/uL (1.2-3.4); MEAN CELL VOLUME 92.7 fL (80-100); MEAN CORPUSCULAR HEMOGLOBIN 31.5 pg (25-34); MEAN PLATELET VOLUME 9.5 fL (7.4-10.4); MONO % 7.2 %; PLATELET COUNT 148 K/uL (130-400); RED BLOOD COUNT 4.25 M/uL (4.7-6.1); WHITE BLOOD COUNT 5.12 K/uL (4.8-10.8)
[2016-03-18 07:08] LABS: BUN/CREATININE RATIO 13.3 (10-20); CALCIUM 8.4 mg/dl (8.5-10.1); CREATININE 1.4 mg/dl (0.60-1.40); MAGNESIUM 2.2 mg/dl (1.8-2.4); POTASSIUM 4.1 mmol/L (3.5-5.1)
[2016-03-18 07:31] VITALS: BP 135/77; PULSE 56; TEMP 36.7; O2SAT 96
[2016-03-18] MEDS: ASPIRIN 81 MG ECTAB PO SCH (07:32)
[2016-03-18] MEDS: CEROVITE ADV FORMULA TAB PO SCH (07:33)
[2016-03-18] MEDS: METOPROLOL SUCC 25MG EXT REL TAB PO SCH (07:33)
[2016-03-18] MEDS ORDERED: TPRSR25 PO (08:36)
[2016-03-18] MEDS ORDERED: CONSULT PHARMACY STA (08:38)
--- NOTE | 2016-03-18 08:38 | Discharge Instructions ---
Discharge Instructions Admission Reason for Admission: Ventricular Tachycardia Discharge Discharge Diagnosis / Problem: heart rhythm change, non cardiac chest pain Discharge Goals Goal(s): Diagnostic testing, Therapeutic intervention Activity Recommendations Activity Limitations: resume your previous activity . Instructions / Follow-Up Instructions / Follow-Up Its always good to see your family doctor within one week from discharge and they can help arrange your follow up with DR Chiu If your rib cage aches again and you can make it worse by putting pressure on it , try some ibuprofen Current Hospital Diet Patient's current hospital diet: AHA Diet (Heart Healthy) Discharge Diet Recommended Diet: Regular Diet Pending Studies Studies pending at discharge: no Medical Emergencies . Who to Call and When: Medical Emergencies: If at any time you feel your situation is an emergency, please call 911 immediately. . Non-Emergent Contact Non-Emergency issues call your: Primary Care Provider, Transcription . . "Provider Documentation" section prepared by Ross Adam. VTE Core Measure Inpt VTE Proph given/why not?: Unfractionated heparin SQ
[2016-03-18 08:46] VITALS: BP 135/77; PULSE 56; TEMP 36.7; O2SAT 96
--- NOTE | 2016-03-18 10:38 | Discharge Summary ---
Discharge Summary Admission Date: Mar 16, 2016 at 22:59 Discharge Date: Mar 18, 2016 Discharge Disposition: Home Principal Diagnosis: ventricular arrythmia, non cardiac chest pain Immunizations: Have You Had Influenza Vaccine: No History of Tetanus Vaccine?: utd History of Pneumococcal: No History of Hepatitis B Vaccine: No Procedures: ECHO. EF 50%, Diastolic dysfunction II, no significant valve dysfunction Consultations: Dr David Medication Reconciliation New Medications: Metoprolol Succinate (Metoprolol Succinate ER) 25 Mg Tabcr 12.5 MG PO BID, #60 TAB 5 Refills Continued Medications: Aspirin (Aspirin Ec) 81 Mg Tab 81 MG PO DAILY Multiple Vitamins W/ Minerals (Multivitamin Adults 50+) 1 Tab Tab 1 TAB PO DAILY Discontinued Medications: Hctz/Lisinopril (Lisinopril/Hctz 10/12.5 Mg) 1 Ea Tab 1 TAB PO DAILY, TAB Discharge Exam Review of Systems: Constitutional: No chills, No fever Respiratory: No cough, No sputum Cardiovascular: No chest pain, No orthopnea Abdomen: No nausea, No pain Musculoskeletal: + joint pain (left costochondral pain cw his initial complaint of chest pain), No muscle pain Physical Exam: General Appearance: WD/WN, no apparent distress Neck: supple, no JVD Respiratory/Chest: chest non-tender, lungs clear, normal breath sounds Cardiovascular: regular rate, rhythm, no murmur Abdomen / GI: normal bowel sounds, non tender, soft Neurologic/Psychiatric: alert, oriented x 3 Hospital Course 70 M with pleuritic chest pain, has ectopy including short runs of V tach Ectopy/V tach, was place on lidocaine gtt, admitting physician wished to change to amiodarone, did have normal stress echo in 2011, was started on Heparin infusion and after cardiology evaluation, heparin was stopped and started on metoprolol no arrhythmia since and chest pain abated will discharge on metoprolol succinate 12.5 bid and have follow up with kevin Total Time Spent: Greater than 30 minutes This includes examination of the patient, discharge planning, medication reconciliation, and communication with other providers. Discharge Instructions Please refer to the electronic Patient Visit Report (Discharge Instructions) for additional information.
== END 2016-03-18 11:05 | disposition home or self-care (01) | DRG 309 ==
LOC: ENRESERVTM → ENRESERVDT → C.EDB 20:47 → C.MSICU 22:59 → C.2T 03-17 16:27
PROVIDERS: ADMIT Hospitalist; ATTEND Internal Medicine
DX: I49.49 Other premature depolarization (principal); I47.2 Ventricular tachycardia; R07.1 Chest pain on breathing; I10 Essential (primary) hypertension; M19.90 Unspecified osteoarthritis, unspecified site; G47.30 Sleep apnea, unspecified; Z82.49 Family history of ischemic heart disease and other diseases of the circulatory system; Z79.82 Long term (current) use of aspirin; Z79.899 Other long term (current) drug therapy

== ENCOUNTER 2016-04-28 16:25 | Emergency (ER) | payer OTHER ==
[~2016-04-28] VITALS: Ht 177.8 cm; Wt 101.2 kg
[~2016-04-28 16:25] MED LIST changes: -ISON300T4 PO; -LSN/10125 PO; +TPRSR25 PO
[2016-04-28 16:32] VITALS: Ht 177.8 cm; Wt 101.2 kg
[2016-04-28 16:49] VITALS: O2SAT 97
[2016-04-28] MEDS ORDERED: METO1TAB68 PO (16:56)
[2016-04-28] MEDS ORDERED: ATOR-22 PO (16:56)
--- NOTE | 2016-04-28 17:22 | EMERGENCY ROOM VISIT NOTE ---
History Report prepared by Reyna: Red Harper Under the Supervision of: Dr. Dora Curry D.O. First contact with patient: 17:08 Chief Complaint: FLU LIKE SX Stated Complaint: COUGH,BACK AND CHEST PAIN History of Present Illness The patient is a 70 year old male who presents to the Emergency Room with complaints of a persistent cough beginning about 2 days ago. He reports the cough causes pain through his chest, abdomen, and back. He notes he has wheezing at baseline, but that it is now worse, and admits to having an intermittent fever. The patient adds that he becomes short of breath with exercise, though he denies having any history of asthma, emphysema, or anemia. He notes he has not been drinking many fluids recently. He did not receive a flu shot this year. The patient reports have irregular heart rates in the past. He had an EKG done in Dr. Chiu's office 2 days ago. He also adds having a positive PPB test over 1 year ago. Source of History: patient Onset: about 2 days ago Position: throat Quality: other (cough) Timing: other (persistent) Associated Symptoms: + SOB (on exertion), + abdominal pain (from cough), + back pain (from cough), + chest pain (from cough), + fevers (intermittent) Review of Systems See HPI for pertinent positives & negatives. A total of 10 systems reviewed and were otherwise negative. Past Medical & Surgical Medical Problems: (1) Hypertension (2) Irritable bowel syndrome (3) Ventricular tachycardia Surgical Problems: (1) Hx of cholecystectomy Family History FH: myocardial infarction Pacemaker Social History Smoking Status: Never Smoker Alcohol Use: none Drug Use: cocaine Marital Status: Occupation Status: employed Current/Historical Medications Scheduled Aspirin (Aspirin Ec), 81 MG PO DAILY Atorvastatin (Lipitor), 20 MG PO DAILY Metoprolol Succinate (Toprol Xl), 100 MG PO DAILY Multiple Vitamins W/ Minerals (Multivitamin Adults 50+), 1 TAB PO DAILY Oseltamivir (Tamiflu), 75 MG PO BID Allergies Coded Allergies: BEE STING (Verified Allergy, Severe, swelling, 04/28/16) Isoniazid (Verified Allergy, Unknown, "HYPOTENSION, HYPERHIDROSIS", ) Propoxyphene (Verified Allergy, Unknown, 04/28/16) Wasp (Verified Allergy, Unknown, SWELLING, 04/28/16) Morphine (Verified Adverse Reaction, Severe, DECREASES B/P AND PULSE, 04/28) Physical Exam Vital Signs Date Time Temp Pulse Resp B/P Pulse Ox O2 Delivery O2 Flow Rate FiO2 04/28/16 20:23 86 18 123/72 99 Room Air 04/28/16 18:42 39.4 67 28 145/86 95 04/28/16 16:49 97 Room Air 04/28/16 16:32 37.9 61 20 149/84 95 Room Air Physical Exam HEENT: Head - normocephalic and atraumatic Pupils are equal, round, and reactive to light. Extraocular eye muscles are intact, and sclera are anicteric. Nose - moist nasal mucosa without discharge. Mouth - moist buccal mucosa. Oropharynx is nonerythematous and there is no tonsillar exudate or edema noted. Neck: Supple; no JVD, nuchal rigidity, cervical lymphadenopathy. Heart: Regular rate and rhythm. There is a normal S1 and S2 with no murmurs, clicks, or gallops appreciated. Lungs: Clear to auscultation bilaterally with no wheezes, rales, or rhonchi. Abdomen: Soft, completely nontender, nondistended, with good bowel sounds. There are no palpable pulsatile masses or hepatosplenomegaly. There is no guarding, rigidity, or rebound noted. Extremities: Trace pedal edema noted. There are easily palpable peripheral pulses. Skin: Skin is pale. Medical Decision & Procedures ER Provider Diagnostic Interpretation: Radiology results as stated below per my review and the radiologist's interpretation: CHEST 2 VIEWS ROUTINE FINDINGS: The heart is borderline enlarged. There is no failure. There is no focal pulmonary consolidation. There is a stable opacity at the left cardiophrenic angle, likely represent accommodation of fat pad and atelectatic change. IMPRESSION: No active disease in the chest. Electronically signed by: Marko Aldana M.D. 04/28/2016 5:37 PM Dictated Date/Time: 04/28/2016 5:[address] ANGIOGRAM OF THE CHEST FINDINGS: No pathologically enlarged axillary mediastinal or hilar lymph nodes were visualized. There was no evidence of thoracic aortic dilatation. There is no CT evidence of acute pulmonary embolism. There is an equivocal tiny chronic thrombus within a left upper lobe pulmonary artery branch. No pleural effusions are visualized. There is mild respiratory motion artifact. There is no focal pulmonary consolidation. There is minor central bronchial wall thickening. There is a 4 mm left lower lobe perifissural nodule as visualized in image #155/278. As a 3 mm left upper lobe pulmonary nodule as visualized in image # 171/278. There is a 4 mm right upper lobe point nodule as visualized in image #187/278. There is a 4 mm right lower lobe pulmonary nodule as visualized in image #153/278 there is a 4 mm subpleural right lower lobe point nodule as visualized in image #165/[address] IMPRESSION: 1[address] No CT evidence of acute pulmonary embolism 2. Equivocal tiny chronic thrombus within the left upper lobe pulmonary artery branch 3. Multiple subcentimeter pulmonary nodules, the largest of which measures 4 mm. Follow-up per Fleischner criteria is recommended Please refer to below summary of Fleischner criteria recommendations for follow-up of incidental CT nodules (Nery Thomas, Guidelines for management of small pulmonary nodules detected on CT scans: A statement from the Fleischner Society, Radiology 237: [phone].) Low Risk Patient: Minimal or no smoking or other known risk factors for malignancy <=4 mm: No follow-up needed. >4-6 mm: Initial follow-up CT at 12 months; if unchanged, no further follow-up. >6-8 mm: Initial follow-up CT at 6-12 months then at 18-24 months if no change. >8 mm: Follow-up CT at \\R\\3, 9, 24 months, or PET and/or biopsy. High Risk Patient: History of smoking or other known risk factors <=4 mm: Follow-up at 12 months; if unchanged, no further follow-up. >4-6 mm: Initial follow-up CT at 6-12 months then at 18-24 months if no change. >6-8 mm: Initial follow-up CT at 3-6 months then at 9-12 and 24 months if no change. >8 mm: Same as low risk patient. Note: Nodule size measured as average of length and width. Ground glass or partly solid nodules may require longer follow-up to exclude indolent adenocarcinoma. Electronically signed by: Marko Aldana M.D. 04/28/2016 7:27 PM Dictated Date/Time: 04/28/2016 7:18 PM Laboratory Results 2/25/17 16:55 Red Blood Count 4.56, Mean Corpuscular Volume 91.7, Mean Corpuscular Hemoglobin 30.7, Mean Corpuscular Hemoglobin Concent 33.5, Mean Platelet Volume 9.1, Neutrophils (%) (Auto) 66.6, Lymphocytes (%) (Auto) 14.2, Monocytes (%) (Auto) 16.6, Eosinophils (%) (Auto) 2.0, Basophils (%) (Auto) 0.4, Neutrophils # (Auto ) 3.34, Lymphocytes # (Auto) 0.71, Monocytes # (Auto) 0.83, Eosinophils # (Auto ) 0.10, Basophils # (Auto) 0.02 04/28/16 16:55 Test 04/28/16 16:45 04/28/16 16:55 Influenza Type A Antigen Neg for Influ A (NEG) Influenza Type B Antigen POS for Influ B (NEG) White Blood Count 5.01 K/uL (4.8-10.8) Red Blood Count 4.56 M/uL (4.7-6.1) Hemoglobin 14.0 g/dL (14.0-18.0) Hematocrit 41.8 % (42-52) Mean Corpuscular Volume 91.7 fL (80-100) Mean Corpuscular Hemoglobin 30.7 pg (25-34) Mean Corpuscular Hemoglobin Concent 33.5 g/dl (32-36) Platelet Count 140 K/uL (130-400) Mean Platelet Volume 9.1 fL (7.4-10.4) Neutrophils (%) (Auto) 66.6 % Lymphocytes (%) (Auto) 14.2 % Monocytes (%) (Auto) 16.6 % Eosinophils (%) (Auto) 2.0 % Basophils (%) (Auto) 0.4 % Neutrophils # (Auto) 3.34 K/uL (1.4-6.5) Lymphocytes # (Auto) 0.71 K/uL (1.2-3.4) Monocytes # (Auto) 0.83 K/uL (0.11-0.59) Eosinophils # (Auto) 0.10 K/uL (0-0.5) Basophils # (Auto) 0.02 K/uL (0-0.2) RDW Standard Deviation 45.7 fL (36.4-46.3) RDW Coefficient of Variation 13.8 % (11.5-14.5) Immature Granulocyte % (Auto) 0.2 % Immature Granulocyte # (Auto) 0.01 K/uL (0.00-0.02) Prothrombin Time 11.1 SECONDS (9.0-12.0) Prothromb Time International Ratio 1.0 (0.9-1.1) Activated Partial Thromboplast Time 28.6 SECONDS (21.0-31.0) Partial Thromboplastin Ratio 1.1 D-Dimer 560 ug/L FEU (0-500) Anion Gap 8.0 mmol/L (3-11) Est Creatinine Clear Calc Drug Dose 56.9 ml/min Estimated GFR () 57.8 Estimated GFR (Non- 49.8 BUN/Creatinine Ratio 13.2 (10-20) Calcium Level 8.5 mg/dl (8.5-10.1) Total Bilirubin 1.3 mg/dl (0.2-1) Direct Bilirubin 0.2 mg/dl (0-0.2) Aspartate Amino Transf (AST/SGOT) 18 U/L (15-37) Alanine Aminotransferase (ALT/SGPT) 17 U/L (12-78) Alkaline Phosphatase 84 U/L (45-117) Total Creatine Kinase 123 U/L (39-308) Creatine Kinase MB 0.9 ng/ml (0.5-3.6) Creatine Kinase MB Ratio 0.7 (0-3.0) Troponin I < 0.015 ng/ml (0-0.045) Pro-B-Type Natriuretic Peptide 1250 pg/ml (0-900) Total Protein 7.4 gm/dl (6.4-8.2) Albumin 3.6 gm/dl (3.4-5.0) Laboratory results per my review. Medications Administered Medications (Trade) Dose Ordered Sig/Leonidas Route Start Time Stop Time Status Last Admin Dose Admin Oseltamivir Phosphate (Tamiflu Cap) 75 mg NOW STAT PO 04/28/16 18:33 04/28/16 18:34 DC 04/28/16 18:44 75 MG Acetaminophen (Tylenol Tab) 1,000 mg NOW STAT PO 04/28/16 18:39 04/28/16 18:40 DC 04/28/16 18:44 1,000 MG Procedure 183: Ordered Tamiflu Cap 75 mg PO. 1838: Ordered Acetaminophen 1,000 mg PO. ECG Indication: other (cough) Rate (beats per minute): 66 Rhythm: normal sinus Findings: T-wave inversion (Lateral and inferior) Change: T wave inversions were present 2 days ago; T wave inversion are new from . ED Course 1711: Past medical records reviewed. The patient was evaluated in room A2. A complete history and physical exam was performed. An IV lock was initiated and labs are drawn as above. His nose was swab for influenza. A twelve-lead EKG was obtained as described above. Patient had chest x-ray as described above. 1800: I updated the patient. He will go for a CT to rule out a PE. 1832: Ordered Tamiflu Cap 75 mg PO. 1838: The patient's fever has gone up. Ordered Acetaminophen 1,000 mg PO. 2014: I reassessed the patient and he is doing well. 2024: Upon reevaluation, the patient is doing well. I discussed findings and results with the patient. He verbalized agreement of the treatment plan. The patient was discharged home. Medical Decision The patient is a 70 year old male who presents to the Emergency Room with complaints of a persistent cough beginning about 2 days ago. Differentials include CHF, cardiac ischemia, cardiac dysrhythmia, and pneumonia. Laboratory interpretation: positive for influenza B; no leukocytosis; stable H&H ; normal renal function; total bilirubin 1.3, otherwise LFTs are normal; BNP at 1,250; D-dimer of 560; cardiac enzymes are negative. The patient has T-wave inversions inferiorly and laterally on EKG. These are unchanged from an EKG was performed by his barratte operator just 2 days ago. The patient had a normal EKG in March of this year but was having episodes of PVCs , couplets and triplets. For this, he followed up with cardiology and had cardiac stress testing which was negative. The patient has a positive for influenza B here today. I am not convinced that this is the cause of the patient's exertional shortness of breath that has been worsening over the past 2-3 weeks. I have asked the patient to follow-up with his crew person with regards to the exertional shortness of breath and to the pulmonary nodules were noted on CT scan today. The patient will take Tamiflu for the next 5 days. He was told to return to the emergency department if symptoms worsened. Impression Primary Impression: Influenza B Scribe Attestation The scribe's documentation has been prepared under my direction and personally reviewed by me in its entirety. I confirm that the note above accurately reflects all work, treatment, procedures, and medical decision making performed by me. Departure Information Dispostion Home / Self-Care Prescriptions Oseltamivir (Tamiflu) 75 Mg Cap 75 MG PO BID, #10 CAP Prov: Dora Curry D.O. 04/28/16 Referrals Jhonny Sanders M.D. (PCP) Patient Instructions ED Flu, My [facility] Additional Instructions Rest. Take plenty of clear liquids Take tamiflu twice a day for next [address] Montalvo with regards to exertional shortness of breath and pulmonary nodules on CT scan.
[2016-04-28 17:26] LABS: BASO % 0.4 %; BASO ABS # 0.02 K/uL (0-0.2); COMPLETE YES; HEMATOCRIT 41.8 % (42-52); IG% 0.2 %; LYMPH % 14.2 %; LYMPH ABS # 0.71 K/uL (1.2-3.4); MEAN CELL VOLUME 91.7 fL (80-100); MEAN CORPUSCULAR HEMOGLOBIN 30.7 pg (25-34); MEAN CORPUSCULAR HGB CONC 33.5 g/dl (32-36); MEAN PLATELET VOLUME 9.1 fL (7.4-10.4); MONO % 16.6 %; NEUT % 66.6 %; PLATELET COUNT 140 K/uL (130-400); RED BLOOD COUNT 4.56 M/uL (4.7-6.1); WHITE BLOOD COUNT 5.01 K/uL (4.8-10.8)
[2016-04-28 17:34] LABS: ALT/SGPT 17 U/L (12-78); AST/SGOT 18 U/L (15-37); BLOOD UREA NITROGEN 19 mg/dl (7-18); BUN/CREATININE RATIO 13.2 (10-20); CALCIUM 8.5 mg/dl (8.5-10.1); CARBON DIOXIDE 29 mmol/L (21-32); CHLORIDE 104 mmol/L (98-107); GLUCOSE 95 mg/dl (70-99); PARTIAL THROMBOPLASTIN RATIO 1.1; POTASSIUM 4.2 mmol/L (3.5-5.1); PROTHROMBIN TIME (PATIENT) 11.1 SECONDS (9.0-12.0); SODIUM 141 mmol/L (136-145)
--- NOTE | 2016-04-28 17:38 | DIAGNOSTIC IMAGING REPORT ---
CHEST 2 VIEWS ROUTINE CLINICAL HISTORY: Exertional shortness of breath COMPARISON STUDY: 03/17/2016 FINDINGS: The heart is borderline enlarged. There is no failure. There is no focal pulmonary consolidation. There is a stable opacity at the left cardiophrenic angle, likely represent accommodation of fat pad and atelectatic change.[ IMPRESSION: No active disease in the chest. Electronically signed by: Marko Aldana M.D. 04/28/2016 5:37 PM Dictated Date/Time: 04/28/2016 5:36 PM
[2016-04-28 17:40] LABS: ALKALINE PHOSPHATASE 84 U/L (45-117); CKMB/CK RATIO 0.7 (0-3.0)
[2016-04-28] MEDS ORDERED: OPTIRAY 320 IV PRN ×2 (18:30)
[2016-04-28] MEDS ORDERED: OSELTAMIVIR PHOSPHATE 75 MG CAP PO STA (18:33)
[2016-04-28] MEDS ORDERED: ACETAMINOPHEN 500 MG TAB PO STA (18:39)
[2016-04-28 18:42] VITALS: TEMP 39.4
--- NOTE | 2016-04-28 20:08 | DIAGNOSTIC IMAGING REPORT ---
CT ANGIOGRAM OF THE CHEST CLINICAL HISTORY: Atypical chest pain. Exertional shortness of breath. COMPARISON STUDY: Chest x-ray dated 04/28/2016 TECHNIQUE: Following the IV administration of 90 mL of Optiray-320, CT angiogram of the thorax was performed from the thoracic inlet to the lung bases utilizing the pulmonary embolus protocol. Images are reviewed in the axial, sagittal, and coronal planes. IV contrast was administered without complication. MIP imaging was performed. CT DOSE: 545.48 mGy.cm FINDINGS: No pathologically enlarged axillary mediastinal or hilar lymph nodes were visualized. There was no evidence of thoracic aortic dilatation. There is no CT evidence of acute pulmonary embolism. There is an equivocal tiny chronic thrombus within a left upper lobe pulmonary artery branch. No pleural effusions are visualized. There is mild respiratory motion artifact. There is no focal pulmonary consolidation. There is minor central bronchial wall thickening. There is a 4 mm left lower lobe perifissural nodule as visualized in image #155/278. As a 3 mm left upper lobe pulmonary nodule as visualized in image # 171/278. There is a 4 mm right upper lobe point nodule as visualized in image #187/278. There is a 4 mm right lower lobe pulmonary nodule as visualized in image #153/278 there is a 4 mm subpleural right lower lobe point nodule as visualized in image #165/278 IMPRESSION: 1. No CT evidence of acute pulmonary embolism 2. Equivocal tiny chronic thrombus within the left upper lobe pulmonary artery branch 3. Multiple subcentimeter pulmonary nodules, the largest of which measures 4 mm. Follow-up per Fleischner criteria is recommended Please refer to below summary of Fleischner criteria recommendations for follow-up of incidental CT nodules (Nery Thomas, Guidelines for management of small pulmonary nodules detected on CT scans: A statement from the Fleischner Society, Radiology 237: [phone].) Low Risk Patient: Minimal or no smoking or other known risk factors for malignancy <=4 mm: No follow-up needed. >4-6 mm: Initial follow-up CT at 12 months; if unchanged, no further follow-up. >6-8 mm: Initial follow-up CT at 6-12 months then at 18-24 months if no change. >8 mm: Follow-up CT at \R\3, 9, 24 months, or PET and/or biopsy. High Risk Patient: History of smoking or other known risk factors <=4 mm: Follow-up at 12 months; if unchanged, no further follow-up. >4-6 mm: Initial follow-up CT at 6-12 months then at 18-24 months if no change. >6-8 mm: Initial follow-up CT at 3-6 months then at 9-12 and 24 months if no change. >8 mm: Same as low risk patient. Note: Nodule size measured as average of length and width. Ground glass or partly solid nodules may require longer follow-up to exclude indolent adenocarcinoma. Electronically signed by: Marko Aldana M.D. 04/28/2016 7:27 PM Dictated Date/Time: 04/28/2016 7:18 PM
[2016-04-28] MEDS ORDERED: OSEL75CA12 PO (20:18)
[2016-04-28 20:23] VITALS: BP 123/72; PULSE 86; O2SAT 99
== END 2016-04-28 20:35 | disposition home or self-care (01) ==
LOC: C.EDB 16:27 → C.EDA 20:35
DX: J11.1 Influenza due to unidentified influenza virus with other respiratory manifestations (principal); I10 Essential (primary) hypertension; K58.9 Irritable bowel syndrome, unspecified; Z90.49 Acquired absence of other specified parts of digestive tract; Z79.82 Long term (current) use of aspirin

== ENCOUNTER → 2016-07-09 | Outpatient (CLI) | payer OTHER ==
[~2016-07-09] MED LIST changes: +ATOR-22 PO; +METO-479 PO; +OSEL75CA12 PO; -TPRSR25 PO
--- NOTE | 2016-07-10 05:44 | PAP/PSG TECHNICIAN REPORT ---
[facility] Homicide [employer] Sergeant Polysomnogram Report Study name: None Report date: 07/10/2016 Study date: 07/09/2016 Referring Physician: PIPPA DELGADO M.D. Name: DARBY DUENAS Interpreting Physician: Vidal Montalvo M.D. 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 Sex: Male Age: 70 StudyType: PSG PAP Weight: 222 lbs Height: 70 years, Height 5' 10" Neck Circum: BMI: 31.85 Medications: ASA 81mg, Atorvastatin 20mg, Losartan Potassium- HCTZ 50-12.5 mg, Metoprolol Succinate ER 100mg, Multivitamin, Sertraline HCl 50mg, Tylenol Patient History Study started on room air with 4cwp cpap in room #6. 70 yr old male here tonight for a new titration study. He had a HST that had an KYLE of 16.7. His neck circ=17inches. Parameters Monitored NPSG: E1-M2, E2-M1, Fp1-M2, Fp2-M1, F3-M2, F4-M2, F4-M1, C3-M2, C4-M2, C4-M1, O1-M2, O2-M2, O2-M1, T3-M2, T4-M1, P3-M2, P4-M1, CHIN1, CHIN2, HR, EKG, Legs, PFLOW, SNOR, FLOW, CFLOW, Tidal Volume, THOR, ABDO, SpO2, PLTH, CPRESS, ETCO2 Wave, ETCO2, pH Sleep Architecture Sleep Stages Time at Lights Off 10:05:29 PM STAGES Time (min.) TST (%) Time at Lights On 5:13:29 AM Wake 72.0 -- Total Recording Time (TRT) 428.00 min. N1 22.0 6 Total Sleep Period (TSP) 396.5 min. N2 186.0 52 Total Sleep Time (TST) 356.0min. N3 69.0 19 Awake Time 72.0 min. REM 79.0 22 Wake after Sleep Onset 45.5 min. Sleep Efficiency (SE) 83 % Sleep Onset Latency (ARISTEO) 26.5 min. Number of Stage 1 Shifts None Awakenings 21 Stage Changes 102 Number of REM periods 10 REM 79.0 22 REM Latency 40.5 min. NREM 277.0 78 Body Position Analysis Supine Right Left Side Prone Vertical Total Sleep Time (min.) 428.0 0.0 0.0 0.00 0.0 0.0 Total Sleep Time (%) 100% 0% 0% 0 0% N/A% Total Sleep Time REM (min.) 79.0 0.0 0.0 None 0.0 0.0 Total Sleep Time NREM (min.) 277.0 0.0 0.0 None 0.0 0.0 Intermittent Wake (min.) 72.0 0.0 0.0 None 0.0 0.0 Total Sleep Period (%) 100% None None None None None Arousals Myoclonus (PLM) * Events Count Index Events Count Index Spontaneous 14 2 Events Awake (PLMW) 56 46.7 Respiratory 3 0.3 Events Asleep w/ Arousal (PLMA) 11 1.9 PLM 11 2 Events Asleep w/o Arousal (PLMS) 61 10.3 Snoring 0 0 Total Asleep 72 12.1 Total 28 5 Total 128 18 Respiratory Analysis * CA OA MA CH H RERA Total Count 2 0 0 0 20 0 22 Index 0.3 0.0 0.0 0 3.4 0 3.7 Mean Duration 15.3 0.0 0.0 0.00 24.2 0.0 23.4 Longest Duration 19.9 0.0 0.0 0.00 0.0 0.0 38.8 Respiratory Event Summary Total Supine ~Supine Right Left Prone REM NREM Apneas Count 2 2 N/A N/A N/A N/A 1 1 Index 0.3 0 N/A N/A N/A N/A 1 0 Hypopneas (4% Desat) Count 20 20 N/A N/A N/A N/A 14 6 Index 3.4 3.4 N/A N/A N/A N/A 10.6 1.3 Apneas & All Hypopneas Count 22 22 N/A N/A N/A N/A 15 7 Index 3.7 4 N/A N/A N/A N/A 11.4 1.5 Respiratory Events (Rn Wellness+All Hyp+RERA) Count 22 22 N/A N/A N/A N/A 15 7 Index 3.7 4 N/A N/A N/A N/A 11.4 1.5 Respiratory Related Arousal Count 3 22 N/A N/A N/A N/A 0 2 Index 0.3 0 N/A N/A N/A N/A 0 0 Snoring Analysis Supine Right Left Prone REM NREM Total Snore duration 2.6 min Snores count 126 N/A N/A N/A 2 124 126 Snore mean duration 1.2 Sec Snores index 21 N/A N/A N/A 1.5 26.9 21.2 TST with snoring (%) 0.7% Desaturation Event Summary: Minimum %SpO2 Event Count Mean/Min/Max Duration(sec.) Desaturation Index % Time In Bed > 90 69 29.8 / 9.5 / 60.0 11.5 84.6 86 - 90 4 31.8 / 26.5 / 45.8 3.6 15.4 81 - 85 0 N/A 0.0 0.0 76 - 80 0 N/A 0.0 0.0 71 - 75 0 N/A 0.0 0.0 66 - 70 0 N/A 0.0 0.0 61 - 65 0 N/A 0.0 0.0 56 - 60 0 N/A 0.0 0.0 51 - 55 0 N/A 0.0 0.0 < 50 0 N/A 0.0 0.0 Total REM NREM Awake <50% 0.0 min. 0.0 min. 0.0 min. 0.0 min. 51 - 60% 0.0 min. 0.0 min. 0.0 min. 0.0 min. 61 - 70% 0.0 min. 0.0 min. 0.0 min. 0.0 min. 71 - 80% 0.0 min. 0.0 min. 0.0 min. 0.0 min. 81 - 90% 65.8 min. 17.1 min. 43.4 min. 5.4 min. 91 - 100% 360.9 min. 61.9 min. 233.1 min. 65.9 min. Average 92 92 92 94 Minimum SpO2 86 86 86 87 Desaturation Event Index 9.7 14.4 4.1 25.8 # Desat. Events below 89% 14 6 5 3 Time(%) with Saturation below 89% 1.8 0.6 1.2 0.1 Time(min.) with Saturation below 89% 7.9 2.4 5.2 0.4 Time (mins) REM (mins) NREM (mins) % of TST SpO2 Below 90% 30 17 N13 7.3 SpO2 Below 88% 7 0 0 1 Heart Rate Analysis Min (bpm) Max (bpm) Average (bpm) Awake 42 66 48 NREM 42 60 46 REM 43 127 47 Overall 42 127 46 Supplemental O2 Values Minimum O2 level: None Value Start Time End Time Homicide [employer] Sergeant Comments Mr. Duenas slept in the right and supine positions. Bradycardia noted. No PLM's noted. No bruxism noted. CPAP was initiated at +4 CMH2O and up-titrated to an optimal level of +7 CMH2O, which nearly eliminated all respiratory events and snoring. A Medium Quattro Air full face mask by [employer] was used during titration He did not use the restroom during the night. He stated that he slept well. The final report will be interpreted and signed by a sleep physician. The completed physician report will then be placed in the patient medical record Therapy Event: Therapy (cm H20) 4 5 6 7 Total Time at Pressure (min.) 71.9 119.9 129.8 106.4 TST at Pressure (min.) 43.9 110.4 115.3 86.4 # Periods 1 1 1 1 Sleep Onset (min.) 26.5 0.0 0.0 0.0 REM Onset (min.) 67.0 0.0 0.0 57.9 Sleep Efficiency % 61 92 88 81 Wakefulness (%) 38.9 7.9 11.2 18.8 Wakefulness (min.) 28.0 9.5 14.5 20.0 NREM 1 (%) 4.9 4.6 6.5 4.2 NREM 1 (min.) 3.5 5.5 8.5 4.5 NREM 2 (%) 49.4 43.4 57.9 22.0 NREM 2 (min.) 35.5 52.0 75.1 23.4 NREM 3 (%) 0.0 30.0 0.4 30.5 NREM 3 (min.) 0.0 36.0 0.5 32.5 REM (%) 6.8 14.1 24.0 24.4 REM (min.) 4.9 16.9 31.2 26.0 # Arousals 6 10 7 5 Arousal Index 8.2 5.4 3.6 3.5 # Snore 2 44 69 11 Snore Index 2.7 23.9 35.9 7.6 AHI 2.7 2.7 5.2 3.5 AHI Supine 2.7 2.7 5.2 3.5 AHI Non-Supine N/A N/A N/A N/A NREM AHI 1.5 0.0 3.6 1.0 REM AHI 12.3 17.7 9.6 9.2 RDI 2.7 2.7 5.2 3.5 # Obstructive 0 0 0 0 # Central Ap 0 0 1 1 # Mixed 0 0 0 0 # Hypopneas 2 5 9 4 RERAS 0 0 0 0 Total Respiratory Events 2 5 10 5 Time Below SpO2 89.00% (min.) 0.8 1.1 5.6 0.0 Mean NREM SpO2 (%) 92 93 91 93 Mean REM SpO2 (%) 91 91 92 92 Mean Sleep SpO2 (%) 92 93 91 93 Min NREM SpO2 (%) 89 90 86 90 Min REM SpO2 (%) 86 87 87 89 Position Supine (min.) 43.9 110.4 115.3 86.4 Position Non-supine (min.) 0.0 0.0 0.0 0.0 LM Index Sleep 10.9 15.2 13.5 6.9 LM Index NREM 9.2 13.5 10.0 6.0 LM Index REM 24.5 24.8 23.1 9.2 Mean Heart Rate (bpm) 47 46 47 46 Min Heart Rate (bpm) 44 42 43 43
--- NOTE | 2016-07-12 14:57 | POLYSOMNOGRAPH REPORT ---
CLINICAL DATA: A 70-year-old male with a BMI of 31.[address] Sanders and Dr. Ruslan Mccabe for CPAP titration study. He had a home sleep study performed which showed moderate sleep apnea with an RDI of 16.7. SLEEP ARCHITECTURE: Total sleep period was 396.5 minutes. Total sleep time was 356 minutes divided between 277 minutes of non-REM sleep and 79 minutes of REM sleep. Sleep onset latency was 26.5 minutes. REM latency was 40.5 minutes. Sleep efficiency was 82%. Awake after sleep onset was 45.5 minutes. Sleep consisted of stage N1 at 6%, N2 at 52%, N3 at 19%, and REM 22%. AROUSAL DATA: 28 arousals were recorded for an index of 5 per hour. PERIODIC LIMB MOVEMENTS DATA: 72 limb movements during sleep were noted for an index of 12.1 per hour with arousal index of 1.9 per hour. RESPIRATORY DATA: The AHI was 3.7. There were 2 central apneic episodes, the longest duration of which was 19.9 seconds. There were 20 hypopneic episodes. The mean duration of hypopnea was 24.2 seconds. OXIMETRY DATA: Mild nocturnal hypoxemia seen. Oxygen madelin was 86% during non-REM and REM sleep. The mean saturation was 92%. Time below 88% was 7 minutes. EKG: Heart rates ranged from 42-127 beats per minute. No arrhythmias were noted. STRATEGIC BUYER'S COMMENTS AND TREATMENT SUMMARY: The patient slept in the right and supine positions. The patient used a medium Quattro full facemask by [employer]. He was titrated up to 7 cm water pressure. At this final pressure setting, he slept for 86.4 minutes with an AHI of 3.5. IMPRESSION: Moderate sleep apnea/hypopnea corrected with CPAP 7 cm of water pressure, [employer] Mirage full face mask, medium Quattro Air. RECOMMENDATIONS: The patient could be started on the above noted treatment regimen and seen back in followup within 90 days to document efficacy and compliance. [facility]
== END | disposition home or self-care (01) ==
LOC: C.NEUR 21:00
PROVIDERS: ATTEND Internal Medicine Pulmonary Disease
DX: G47.33 Obstructive sleep apnea (adult) (pediatric) (principal)

== ENCOUNTER → 2016-08-07 | Outpatient (CLI) | payer OTHER ==
[2016-08-07 13:25] LABS: BASO % 0.5 %; BASO ABS # 0.03 K/uL (0-0.2); COMPLETE YES; EOS % 1.4 %; HEMATOCRIT 41.8 % (42-52); IG% 0.2 %; LYMPH % 26.8 %; LYMPH ABS # 1.52 K/uL (1.2-3.4); MEAN CELL VOLUME 93.7 fL (80-100); MEAN CORPUSCULAR HEMOGLOBIN 31.2 pg (25-34); MEAN CORPUSCULAR HGB CONC 33.3 g/dl (32-36); MEAN PLATELET VOLUME 9.4 fL (7.4-10.4); MONO % 12.3 %; NEUT % 58.8 %; PLATELET COUNT 200 K/uL (130-400); RED BLOOD COUNT 4.46 M/uL (4.7-6.1); WHITE BLOOD COUNT 5.68 K/uL (4.8-10.8)
[2016-08-07 13:56] LABS: AST/SGOT 22 U/L (15-37); BLOOD UREA NITROGEN 27 mg/dl (7-18); BUN/CREATININE RATIO 20.5 (10-20); CALCIUM 9.1 mg/dl (8.5-10.1); CARBON DIOXIDE 30 mmol/L (21-32); CHLORIDE 108 mmol/L (98-107); GLUCOSE 94 mg/dl (70-99); POTASSIUM 4.2 mmol/L (3.5-5.1); SODIUM 142 mmol/L (136-145)
[2016-08-07 14:01] LABS: ALKALINE PHOSPHATASE 97 U/L (45-117); ALT/SGPT 17 U/L (12-78); CHOLESTEROL 152 mg/dl (0-200); CHOLESTEROL/HDL RATIO 4.1; HDL CHOLESTEROL 37 mg/dl; LDL CHOLESTEROL CALCULATED 75 mg/dl; TRIGLYCERIDES 201 mg/dl (0-150); VERY LOW DENSITY LIPOPROT CALC 40 mg/dl
== END | disposition home or self-care (01) ==
LOC: C.LABPBG 11:25
PROVIDERS: ATTEND Internal Medicine Geriatric Medicine
DX: Z00.00 Encounter for general adult medical examination without abnormal findings (principal); I10 Essential (primary) hypertension; G47.33 Obstructive sleep apnea (adult) (pediatric); I25.10 Atherosclerotic heart disease of native coronary artery without angina pectoris; E78.5 Hyperlipidemia, unspecified; M16.9 Osteoarthritis of hip, unspecified; R06.09 Other forms of dyspnea; I47.2 Ventricular tachycardia

== ENCOUNTER → 2016-10-19 | Outpatient (CLI) | payer OTHER ==
[~2016-10-19] VITALS: Ht 180.3 cm; Wt 101.7 kg
[~2016-10-19] MED LIST changes: -METO-479 PO; +METO1TAB68 PO
[2016-10-19 13:37] VITALS: BP 147/77; PULSE 49; Ht 180.3 cm; Wt 101.7 kg
== END | disposition home or self-care (01) ==
LOC: C.NEUR 13:12
PROVIDERS: ATTEND Internal Medicine Pulmonary Disease
DX: G47.33 Obstructive sleep apnea (adult) (pediatric) (principal); I49.1 Atrial premature depolarization; I49.3 Ventricular premature depolarization

== ENCOUNTER → 2017-06-18 | Outpatient (CLI) | payer OTHER ==
[~2017-06-18] MED LIST changes: +METO-479 PO; -METO1TAB68 PO; -OSEL75CA12 PO
[2017-06-18 13:56] LABS: BASO % 0.4 %; BASO ABS # 0.02 K/uL (0-0.2); EOS % 2.5 %; EOS ABS # 0.14 K/uL (0-0.5); HEMATOCRIT 42.9 % (42-52); IG# 0.01 K/uL (0.00-0.02); LYMPH % 28.9 %; LYMPH ABS # 1.65 K/uL (1.2-3.4); MEAN CELL VOLUME 95.1 fL (80-100); MEAN CORPUSCULAR HGB CONC 32.6 g/dl (32-36); MEAN PLATELET VOLUME 9.6 fL (7.4-10.4); MONO % 8.9 %; MONO ABS # 0.51 K/uL (0.11-0.59); NEUT % 59.1 %; NEUT ABS # 3.37 K/uL (1.4-6.5); PLATELET COUNT 187 K/uL (130-400); RED CELL DISTRIBUTION WIDTH CV 14.3 % (11.5-14.5); RED CELL DISTRIBUTION WIDTH SD 49.6 fL (36.4-46.3)
[2017-06-18 14:39] LABS: ALBUMIN 3.5 gm/dl (3.4-5.0); ALT/SGPT 17 U/L (12-78); AST/SGOT 23 U/L (15-37); BLOOD UREA NITROGEN 22 mg/dl (7-18); CALCIUM 9.4 mg/dl (8.5-10.1); CARBON DIOXIDE 28 mmol/L (21-32); CREATININE 1.44 mg/dl (0.60-1.40); GLUCOSE 93 mg/dl (70-99); SODIUM 137 mmol/L (136-145)
[2017-06-18 14:50] LABS: ALKALINE PHOSPHATASE 104 U/L (45-117); CHOLESTEROL 146 mg/dl (0-200); LDL CHOLESTEROL CALCULATED 65 mg/dl; TOTAL PROTEIN 7.4 gm/dl (6.4-8.2)
== END | disposition home or self-care (01) ==
LOC: C.LABPBG 08:51
PROVIDERS: ATTEND Internal Medicine Geriatric Medicine
DX: K76.0 Fatty (change of) liver, not elsewhere classified (principal); I10 Essential (primary) hypertension; G47.33 Obstructive sleep apnea (adult) (pediatric); I25.10 Atherosclerotic heart disease of native coronary artery without angina pectoris; E78.5 Hyperlipidemia, unspecified; I49.3 Ventricular premature depolarization; D64.9 Anemia, unspecified; R00.2 Palpitations

== ENCOUNTER 2019-02-18 23:47 | Inpatient (IN) ==
[2019-02-19] MEDS ORDERED: ONDANSETRON INJ 2 MG/ML 2 ML VIAL IV STA ×2 (00:05→01:33)
[2019-02-19 00:27] LABS: Basophils # (auto) 0.03 K/uL (0-0.2); Basophils % (auto) 0.3 %; Eosinophils # (auto) 0.16 K/uL (0-0.5); Eosinophils % (auto) 1.8 %; Hematocrit (blood only) 46.3 % (42-52); Hemoglobin 15.3 g/dL (14.0-18.0); Immature Granulocytes # (auto) 0.03 K/uL (0.00-0.02); Immature Granulocytes % (auto) 0.3 %; Lymphocytes # (auto) 1.89 K/uL (1.2-3.4); Lymphocytes % (auto) 20.9 %; Mean Corpuscular Hemoglobin 31.7 pg (25-34); Mean Corpuscular Volume 96.1 fL (80-100); Mean Platelet Volume 9.2 fL (7.4-10.4); Monocytes # (auto) 0.76 K/uL (0.11-0.59); Monocytes % (auto) 8.4 %; Neutrophils # (auto) 6.18 K/uL (1.4-6.5); Neutrophils % (auto) 68.3 %; Platelet Count 177 K/uL (130-400); RDW Coefficient of Variation 14.2 % (11.5-14.5); RDW Standard Deviation 49.7 fL (36.4-46.3); Red Blood Count 4.82 M/uL (4.7-6.1); White Blood Count 9.05 K/uL (4.8-10.8)
[2019-02-19 00:45] LABS: Alanine Aminotransferase 20 U/L (12-78); Albumin Level 3.9 gm/dl (3.4-5.0); Aspartate Aminotransferase 25 U/L (15-37); BUN Creatinine Ratio 14.7 (10-20); Blood Urea Nitrogen 26 mg/dl (7-18); Calcium 9.1 mg/dl (8.5-10.1); Carbon Dioxide 30 mmol/L (21-32); Chloride 106 mmol/L (98-107); Creatinine Clr Calc Pharmacy 44.6 ml/min; Est GFR (African American) 43.2; Est GFR (Non-African American) 37.3; Glucose 120 mg/dl (70-99); Magnesium 2.2 mg/dl (1.8-2.4); Potassium 3.7 mmol/L (3.5-5.1); Sodium 140 mmol/L (136-145)
[2019-02-19 00:56] LABS: Alkaline Phosphatase 104 U/L (45-117); Bilirubin,Total 1.8 mg/dl (0.2-1); Globulin 4.1 gm/dl (2.5-4.0); Troponin I < 0.015 ng/ml (0-0.045)
[2019-02-19] MEDS ORDERED: SODIUM CHLORIDE 0.9% 500 ML IV ONE (01:02)
--- NOTE | 2019-02-19 02:48 | History & Physical Report ---
Date of Service February 19, 2019 Assessment & Plan (1) Sinus pause: Patient with witnessed 6-second sinus pause in route to the ER associated with episode of unresponsiveness. History of atrial ectopy and frequent PVCs. Patient follows with cardiology and is presently being managed with a beta estevan. I suspect the episodes this evening represented syncopal events in the setting of conduction abnormality. Patient presently in sinus bradycardia with frequent PVCs. Blood pressure is maintained. Admit to PCU Maintain pacer pads in place We will hold beta-estevan for now We will hold aspirin for now for possible device placement -Optimize electrolylts -Check Lyme serology Cardiology consultation. Greatly appreciate assistance Present on Admission?: Yes (2) Bradycardia: Patient with longstanding history of the same. He follows with cardiology. Cardiac monitoring Hold beta-estevan Cardiology consultation as above Present on Admission?: Yes (3) Syncope: As above. Suspect patient had multiple syncopal events this evening secondary to conduction abnormality, possible pauses. Management as above Present on Admission?: Yes (4) Total bilirubin, elevated: Patient with elevated total bilirubin at 1.8. He is complaining of some mild epigastric pain. Patient is status post cholecystectomy. Afebrile, hemodynamically stable, no leukocytosis. No tenderness with palpation of the abdomen Check PT/INR Repeat LFTs in a.m. Check liver ultrasound Present on Admission?: Yes (5) Hypertension: Blood pressure stable. Continue hydrochlorothiazide Continue losartan Hold metoprolol for now Continue to monitor Present on Admission?: Yes (6) Moderate obstructive sleep apnea: Chronic. Continue CPAP nightly Present on Admission?: Yes (7) Dyslipidemia: Chronic. Stable. Continue atorvastatin Present on Admission?: Yes (8) Chronic kidney disease, stage III (moderate): Patient with mild elevation in BUN and creatinine from baseline, presently 26 and 1.75. Normal saline at 80 mL/h x 2 L Repeat chemistry panel in a.m. Present on Admission?: Yes (9) Cardiomyopathy: Patient with low normal LV function on prior echo. Thought to be secondary to frequent PVCs. Patient presently on BB therapy to manage PVCs. He follows with Dr. Chiu. Appears euvolemic to hypovolemic at present -Check 2D echo -Hold BB for now F/E/N- NSS at 80mL/hr x 2L, monitor electrolytes and replete as needed, NPO for now Ppx - Low risk for DVT Code - Full per discussion with patient Dispo - Admit to PCU History of Present Illness Chief Complaint: Possible syncope Primary Care Provider: DO Wing Howard Jeovanny is a 73yo C male with history of atrial ectopy, PVCs, coronary calcification, HTN/HLP and CKD. He follows with Dr. Chiu, last seen on 01/28/19. He is being managed with beta estevan therapy. The patient ate two fish fillet sandwiches from [employer] this evening. Later in the evening he developed nausea, felt warm and clammy as though he may pass out. He went to the bathroom and had a fairly normal BM. He then called his into the bathroom and asked her to open the window. reports that after she opened the window she turned and saw that her was slumped over on the commode. He appeared tubbs in color and was unresponsive and not breathing. Family also report that he stuck out his bottom lip and it appeared to be swollen. He was unresponsive for only a couple of seconds then woke up. No confusion or incontinence. There was some stiffening of his arm during the event as well. Afterwards the patient walked into his kitchen and had a second episode. Again, he stuck out his lower lip, arm stiffened and he became tubbs, clammy and unresponsive. Episode lasted a few seconds. 911 was called. EMS report that patient was awake and oriented when the arrived. During transport he experienced a third episode as described above - patient was on the environmental monitoring specialist at the time and had a witnessed 6 second pause. Presently he is complaining of epigastric discomfort as well as dizziness. He reports occasional palpitations and irregular heart beats. Otherwise, no complaints. Specifically denies fevers/chills/nausea/vomiting/diarrhea. He has chronic constipation. Denies dysuria/frequency/urgency. No medication adjustments. No sick contacts or recent travel. He is frequently [place] in [place] but no known tick exposure. ER Course: Zofran 4mg, NSS 500 Allergies Allergy/AdvReac Type Severity Reaction Status Date / Time bee venom protein (honey bee) Allergy Severe swelling Verified 02/19/19 00:37 hornet venom Allergy Unknown SWELLING Verified 02/19/19 00:37 isoniazid Allergy Unknown "HYPOTENSION, Verified 02/19/19 00:37 HYPERHIDROSIS" propoxyphene Allergy Unknown Unknown Verified 02/19/19 00:37 morphine AdvReac Severe DECREASES Verified 02/19/19 00:37 B/P AND PULSE Home Medications Home Medications Medication Instructions Recorded Confirmed Type aspirin 81 mg tablet,delayed 81 mg PO DAILY 10/27/18 02/19/19 History release atorvastatin 20 mg tablet 20 mg PO DAILY #90 tab 10/27/18 02/19/19 Rx metoprolol succinate 100 mg 100 mg PO DAILY #90 tab 10/27/18 02/19/19 Rx tablet,extended release 24 hr hydrochlorothiazide 12.5 mg tablet 12.5 mg PO DAILY #30 tab 01/26/19 02/19/19 Rx losartan 50 mg tablet 50 mg PO DAILY #30 tab 01/26/19 02/19/19 Rx [id number]-[id number]-IF-lycopen-lutein 1 tab PO DAILY 02/19/19 02/19/19 History [Centrum Silver] Past Med/Surg History Social History Preferred Language: German Beliefs That Will Affect Care: None marital status: Current Living Situation: Spouse current occupational status: retired Feels Safe at Home: Yes Safety Concerns: Feels Safe At This Time Smoking Status: Never smoker Hx Alcohol Use: No Hx Substance Use: No Seatbelt Use: always Review of Systems Review of Systems: All systems reviewed & are unremarkable except as noted in HPI & below Physical Exam Physical Exam: General: patient resting comfortably, NAD, non-toxic in appearance, AA&O x 4 Skin: warm, dry, intact, no rashes or lesions HEENT: NC/AT, PERRL, EOMI, mild scleral icterus, conjunctiva without injection, external ear normal to inspection and nontender, nares patent, moist mucus membranes with mild sublingual jaundice, dentition intact, no oropharyngeal lesions, neck supple with soft tissue fullness on left, trachea midline, no LAD, no thyromegaly, no JVD Heart: +S1/S2, regular, bracycardic with frequent PVCs, no m/r/g Lungs: equal air entry bilaterally, no rales/rhonchi/wheezes Abd: +BS, soft, NT/ND, no masses/organomegaly/ascites Ext: warm, 2+ pulses in UE/LE bilaterally, no clubbing/cyanosis or edema Neuro: nonfocal, patient AA&O x 4, speech intact, no facial droop, moving all extremities on command with equal strength 5/5 Results & Data Vital Signs (Past 12 Hours) Vital Signs Temp Pulse Resp BP Pulse Ox 02/19/19 02:15 69 22 132/93 96 02/19/19 02:00 57 L 19 122/65 97 02/19/19 01:45 59 L 24 120/69 97 02/19/19 01:31 58 L 11 L 99 02/19/19 01:15 57 L 23 108/64 98 02/19/19 01:03 88 L 02/19/19 01:00 56 L 26 H 94/57 L 89 L 02/19/19 00:46 59 L 18 116/63 92 02/19/19 00:45 50 L 19 93 02/19/19 00:30 53 L 21 110/57 L 96 02/19/19 00:15 48 L 20 115/67 97 02/19/19 00:01 53 L 20 134/68 95 02/19/19 00:00 51 L 23 02/18/19 23:54 36.5 C 52 L 22 129/74 95 02/18/19 23:53 55 L 21 129/74 95 Laboratory Results Lab Results 02/19/19 02/19/19 Range/Units 00:17 00:17 WBC 9.05 (4.8-10.8) K/uL RBC 4.82 (4.7-6.1) M/uL Hgb 15.3 (14.0-18.0) g/dL Hct 46.3 (42-52) % MCV 96.1 (80-100) fL MCH 31.7 (25-34) pg MCHC 33.0 (32-36) g/dL RDW Std Deviation 49.7 H (36.4-46.3) fL RDW Coeff of Rehana 14.2 (11.5-14.5) % Plt Count 177 (130-400) K/uL MPV 9.2 (7.4-10.4) fL Immature Gran % (Auto) 0.3 % Neut % (Auto) 68.3 % Lymph % (Auto) 20.9 % Lipscomb % (Auto) 8.4 % Eos % (Auto) 1.8 % Baso % (Auto) 0.3 % Immature Gran # (Auto) 0.03 H (0.00-0.02) K/uL Neut # (Auto) 6.18 (1.4-6.5) K/uL Lymph # (Auto) 1.89 (1.2-3.4) K/uL Lipscomb # (Auto) 0.76 H (0.11-0.59) K/uL Eos # (Auto) 0.16 (0-0.5) K/uL Baso # (Auto) 0.03 (0-0.2) K/uL Sodium 140 (136-145) mmol/L Potassium 3.7 (3.5-5.1) mmol/L Chloride 106 (98-107) mmol/L Carbon Dioxide 30 (21-32) mmol/L Anion Gap 4.0 (3-11) BUN 26 H (7-18) mg/dl Creatinine 1.75 H (0.6-1.4) mg/dl Est Cr Clr Drug Dosing 44.6 ml/min Est GFR ( Amer) 43.2 Est GFR (Non-Af Amer) 37.3 BUN/Creatinine Ratio 14.7 (10-20) Glucose 120 H (70-99) mg/dl Calcium 9.1 (8.5-10.1) mg/dl Magnesium 2.2 (1.8-2.4) mg/dl Total Bilirubin 1.8 H (0.2-1) mg/dl AST 25 (15-37) U/L ALT 20 (12-78) U/L Alkaline Phosphatase 104 (45-117) U/L Troponin I < 0.015 (0-0.045) ng/ml Total Protein 8.0 (6.4-8.2) gm/dl Albumin 3.9 (3.4-5.0) gm/dl Globulin 4.1 H (2.5-4.0) gm/dl Albumin/Globulin Ratio 1.0 (0.9-2) TSH 4.110 (0.300-4.500) uIu/ml Diagnostic Findings CT Head: Per STAT-rad - no intracranial hemorrhage, abnormal intra or extra axial collections or parenchymal lesions are seen. The shape and configuration of the cortical sulci, basal cisterns and ventricles are within normal limits. The karimi-white differentiation is preserved. No evidence of mass effect, midline shift or edema. The osseous structures are unremarkable. ECG Additional Comments: The study shows sinus bradycardia at 54bpm, PVCs, left axis deivation, UW=860, LYD=729, UMj=959. Code Status & VTE Plan Code Status FULL PG Care Time/CCT Total # of Minutes Spent Total Time Spent with Patient: Total time spent is greater than 50% in coordination of care (as documented) at patient's floor/unit and/or counseling patient: (1) Syncope Syncope type: unspecified Qualified Code(s): R55 - Syncope and collapse (2) Hypertension Hypertension type: essential hypertension Qualified Code(s): I10 - Essential (primary) hypertension
[2019-02-19 04:10] LABS: BUN Creatinine Ratio 16.8 (10-20); Calcium 8.8 mg/dl (8.5-10.1); Creatinine Clr Calc Pharmacy 52.6 ml/min; Est GFR (African American) 53.3; Potassium 3.7 mmol/L (3.5-5.1)
[2019-02-19 04:11] LABS: Phosphorus 2.7 mg/dl (2.5-4.9)
[2019-02-19] MEDS: SODIUM CHLORIDE 0.9% 1000ML 1,000 ML IV SCH ×2 (04:39→17:07)
[2019-02-19 04:44] LABS: Lyme Ab IgM w/WB Rflx Negative (Negative)
[2019-02-19 05:05] LABS: Lyme Ab IgG w/WB Rflx Negative (Negative)
--- NOTE | 2019-02-19 07:07 | CT Scan Report ---
CT head/brain wo con CLINICAL HISTORY: 73 years-old Male with questionable seizure. Acute lightheadedness with dizziness and nausea TECHNIQUE: Multiple axial CT images of the head were obtained without contrast. A dose lowering tech nique was utilized adhering to the principles of ALARA. CT DOSE: 537.48 mGy.cm COMPARISON: None. FINDINGS: No acute intracranial hemorrhage, midline shift, intracranial mass, hydrocephalus, territorial ischem ia or abnormal extra-axial collection. Minimal age-related involutional changes. Minimal patchy white matter hypodensities are suggestive of probable chronic microvascular ischemic disease. Cerebral vas cular calcifications are noted. The calvarium is intact. The paranasal sinuses, mastoid air cells, and middle ear cavities are clear . IMPRESSION: No acute intracranial abnormality. ACT 112: Negative or not required by law. The above report was generated using voice recognition software. It may contain grammatical, syntax o r spelling errors. Electronically signed by: Ralph Finley M.D. 02/19/2019 7:05 AM
[2019-02-19] MEDS: ATORVASTATIN 20 MG TAB PO SCH (07:52)
[2019-02-19] MEDS: LOSARTAN POTASSIUM 50 MG TAB PO SCH (07:52)
[2019-02-19] MEDS: hydroCHLOROthiazide 25 MG TAB PO SCH (07:52)
[2019-02-19] MEDS: CEROVITE ADV FORMULA TAB PO SCH (07:53)
--- NOTE | 2019-02-19 09:26 | Ultrasound Report ---
US liver HISTORY: 73 years-old Male elevated bilirubin acutely elevated bilirubin COMPARISON: CTA chest 04/28/2016 TECHNIQUE: Multiple real-time sonographic images of the abdominal right upper quadrant were obtained assessing grayscale appearance and color flow FINDINGS: Pancreas is suboptimally visualized. The imaged portions demonstrate no focal abnormality. There is i ncreased echogenicity of the liver appears heterogeneous compatible with hepatic steatosis. Areas of fatty sparing noted near the peri hepatis. Normal common bile duct, 5 mm. No intrahepatic biliary du ctal dilation or focal hepatic mass. No evidence of cirrhosis or ascites. Cholecystectomy. Imaged rig ht kidney is unremarkable without hydronephrosis. IMPRESSION: 1. Hepatic steatosis. 2. Cholecystectomy. 3. No biliary ductal dilation. ACT 112: Negative or not required by law. The above report was generated using voice recognition software. It may contain grammatical, syntax o r spelling errors. Electronically signed by: Ralph Finley M.D. 02/19/2019 9:24 AM
--- NOTE | 2019-02-19 11:56 | Medical Student Progress Note ---
Date of Service February 19, 2019 Assessment & Plan (1) Sinus pause: 73 year old male with a history of PVCs, bradycardia, atrial ectopy, cardiomyopathy, HTN, coronary artery calcification, and CKD presents after 3 witnessed episodes of syncope, during one of which sinus pause was recorded. Sinus pause: -noted during ambulance ride to hospital -beta estevan held -EKG (02/19) shows sinus bradycardia, left axis deviation, and PVCs -Cardiology consulted, talked to Dr. Chiu, plan for pacer placement tomorrow -NPO after midnight Bradycardia: -chronic - consulting systems engineer has been monitoring outpatient -pulse this morning at 53, which he says is his baseline -beta estevan held -Tested negative for Lyme Syncope: -no episodes since admission -unremarkable head CT suggests non-neurological cause, most likely vasovagal after epigastric pain and nausea Hyperbilirubinemia: -on admission, total bilirubin 1.8 -also has slight scleral icterus -had cholecystectomy a few years ago -liver US shows hepatic steatosis, otherwise unremarkable -monitor Acute Kidney Injury superimposed on CKD: -Creatinine 1.75 on admission -1.47 as of 02/19, which is consistent with his baseline creatinine -resolved Hypertension: -beta estevan held because of bradycardia, was started on losartan and HCTZ -BP well-controlled in hospital Epigastric Pain: -? sec to food sensitivity. seems to have resolved after episode of emesis in ED. FEN/GI: NSS at 80mL/hr x 2L, Heart healthy, NPO after midnight Code Status: Full DVT Prophylaxis: being held because of pacer placement Dispo: in PCU, pending pacemaker placement (2) Bradycardia: Present on Admission?: Yes (3) Syncope: Syncope type: unspecified Qualified Code(s): R55 - Syncope and collapse Present on Admission?: Yes (4) Total bilirubin, elevated: Present on Admission?: Yes (5) Acute kidney injury superimposed on chronic kidney disease: Present on Admission?: Yes (6) Epigastric pain: Present on Admission?: Yes Supervising Attestation Medical student Supervision Note: I independently interviewed and examined the patient and verified the [place] history and physical, reviewed labs and image studies, discussed the case with Italia Ojeda and agree with the findings and care plan. Subjective Patient has a complicated cardiac history, most notably for PVCs and bradycardia. He was admitted on 02/19 after 3 episodes of witnessed syncope. After consuming two fish sandwiches last night, he developed nausea, then he fell asleep and went to bed. About 2-3 hours later he woke up with bowel urgency. He had a normal BM, but felt very lightheaded, warm, and sweaty. He called his . According to his , he became unconscious. She called 911 and went to the kitchen. In the kitchen, he became unconscious again. On the way to the hospital, EMS put him on a monitor. During the third episode of syncope, they noted 6 seconds of sinus pause. Since then, he has had no syncopal episodes. During none of the episodes did he have confusion or incontinence. He has never had episodes like this occur before. He also had epigastric pain throughout the night, which resolved after vomiting (which occurred right after admission). Does not endorse nausea or vomiting afterward. Today he reports no epigastric pain or nausea; does not endorse chest pain, palpitations, or dyspnea. Review of Systems Constitutional: no fever and no chills Respiratory: no cough, no chest congestion and no dyspnea Cardiovascular: no chest pain, no dyspnea, no palpitations and no lightheadedness Gastrointestinal: no abdominal pain, no nausea and no vomiting Physical Exam Constitutional: WD/WN, vitals as above no acute distress and not edematous Eyes: + scleral abnormality (icteric sclera) ENMT: Nose: + external nose abnormality (on nasal cannula) Respiratory: normal respiratory effort, lungs clear to auscultation no respiratory distress Cardiovascular: Rate/Rhythm: + bradycardic Heart Sounds: no gallop, no murmur and no cardiac rub Extremities: no edema Results & Data Vital Signs (Past 12 Hours) Vital Signs Temp Pulse Pulse Pulse Resp BP BP 02/19/19 11:12 36.6 C 53 L 20 02/19/19 08:00 66 02/19/19 07:53 36.6 C 59 L 20 136/79 02/19/19 03:02 36.7 C 75 18 136/76 02/19/19 02:45 66 27 H 139/78 02/19/19 02:30 67 31 H 142/75 H 02/19/19 02:15 69 22 132/93 02/19/19 02:00 57 L 19 122/65 02/19/19 01:45 59 L 24 120/69 02/19/19 01:31 58 L 11 L 02/19/19 01:15 57 L 23 108/64 02/19/19 01:03 02/19/19 01:00 56 L 26 H 94/57 L 02/19/19 00:46 59 L 18 116/63 02/19/19 00:45 50 L 19 02/19/19 00:30 53 L 21 110/57 L 02/19/19 00:15 48 L 20 115/67 02/19/19 00:01 53 L 20 134/68 02/19/19 00:00 51 L 23 BP Pulse Ox 02/19/19 11:12 137/71 97 02/19/19 08:00 02/19/19 07:53 98 02/19/19 03:02 02/19/19 02:45 95 02/19/19 02:30 96 02/19/19 02:15 96 02/19/19 02:00 97 02/19/19 01:45 97 02/19/19 01:31 99 02/19/19 01:15 98 02/19/19 01:03 88 L 02/19/19 01:00 89 L 02/19/19 00:46 92 02/19/19 00:45 93 02/19/19 00:30 96 02/19/19 00:15 97 02/19/19 00:01 95 02/19/19 00:00
--- NOTE | 2019-02-19 16:03 | Cardiology Consultation ---
Date of Consultation February 19, 2019 Assessment & Plan (1) Syncope: His syncope is almost certainly due to bradycardia based on what was observed by the ambulance crew as well as the measurements of his blood pressure and heart rate which were performed by his family using a blood pressure cuff. He had multiple episodes over a relatively short period of time, but it occurred certainly for half an hour or so but had resolved by the time he came into the emergency room. He has had no preceding syncope and not had any since. (2) Bradycardia: Has a history of SSS, his heart rate has been somewhat slow and he is on beta-blockade but we are using that for his cardiomyopathy which may in part be due to premature ventricular beats which seem to be reasonably well suppressed with beta-blockade. He may have a contribution of a vagal event to this episode based on the fact that he was nauseous, however he has never had episodes like this before and he clearly lost consciousness and was unresponsive. I feel he would be best served by pacemaker implantation. I discussed the indications, procedure, risks and alternatives with him and his family who are present and they understand and agree to proceed. Consent obtained. We will plan on doing this on February 20, 2019. (3) Cardiomyopathy: He has had a mild cardiomyopathy identified in the past, now with beta- blockade his ejection fraction is normal. We should continue beta-blockade, we will need to reinstitute that once he has his pacemaker in place. The cause of his cardiomyopathy may be multifactorial, possibly related to his frequent premature ventricular beats. (4) PVC's (premature ventricular contractions): He has frequent premature ventricular beats in the past, he still has some but they are not frequent based on telemetry monitoring and Holter monitoring. I would continue beta-blockade. (5) Coronary artery calcification: He has coronary artery calcification on CT scanning but has not had symptoms to suggest ischemia and stress testing in the past has been negative for ischemia. I would treat him as though he has coronary artery disease but I believe it to be nonobstructive. History of Present Illness Reason for Consultation: Loss of consciousness Attending Physician: Fidelina Ibarra MD History of Present Illness This is a 73-year-old gentleman with a history of coronary calcifications identified on CT scanning and he has risk factors for coronary artery disease, a statin has been recommended. Additionally he has had premature ventricular beats identified. He also has a history of at least borderline hypertension. He was evaluated in the emergency room for palpitations, premature ventricular beats were identified however on echocardiography 03/16/2016 he had normal left ventricular size with mildly reduced ejection fraction of about 50% as well as mild left ventricular hypertrophy. As far as his symptoms go he had been having some dyspnea on exertion, his family reported that when he worked outside he used to be able to work harder than they could but he was getting quite short of breath. That seemed to happen with relatively mild exertion as well. He denied exertional chest discomfort. He was aware of having some sort of rhythm disturbance as a funny feeling in his chest, but he does not get lightheaded or dizzy and is never had presyncope or syncope. The palpitations were not typically associate with exercise, in fact he tells me they tend to go away with exercise. With findings suggestive of coronary artery disease and his dyspnea on exertion I did get a stress echo performed on 04/12/2016. The only exercise for about 4 minutes before he became fatigued, his left ventricular ejection fraction was felt to be normal at base line and improved with exercise, on reviewing the rhythm strips he had frequent premature ventricular beats at baseline and then these resolved with exercise which is consistent with his symptoms. He reached only 81% of his predicted maximal heart rate but the test was negative for ischemia at that rate. With continued PVCs on 50 mg daily of metoprolol succinate I increased that to 100 mg daily on 04/25/2016. He no longer seemed to be bothered by premature beats and has no lightheadedness, dizziness, presyncope or syncope. An echocardiogram done December 23, 2017 showed normal left ventricular size with a low normal systolic function of 50 to 55% and mild left ventricular hypertrophy. Holter monitoring was done July 10, 2018 which showed a reduction in premature ventricular beats to 5.1%. 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 He does on rare occasions have a funny feeling in his chest which I believe is his ventricular premature beats. He was having no lightheadedness or dizziness and he is tolerating his medications well other than perhaps tiredness. He presents now however with several episodes of syncope all occurring around the same time. He and his family describe to me that he ate a sandwich that did not agree with him, he was having some nausea and was not feeling well and he went into the bathroom and had an unresponsive spell which was witnessed by his when he called out to her. Apparently this occurred recurred again while at home, they called rescue and he was observed to have a 6-second pause associated with syncope or presyncope. He was therefore brought to the emergency room and admitted. I discussed these events with the family and they describe a fairly prolonged episode of unresponsiveness including turning tubbs and at one point when he was semiconscious they did record his blood pressure and although they cannot remember the exact numbers they did several times and it was always less than 100 ("double digits") with a heart rate in the 30s and 40s fluctuating somewhat. At the time of my evaluation he was feeling well, he recovered from his GI symptoms and he has not had further long pauses or bradycardia to that degree. Allergies Allergy/AdvReac Type Severity Reaction Status Date / Time bee venom protein (honey bee) Allergy Severe swelling Verified 02/19/19 00:37 hornet venom Allergy Unknown SWELLING Verified 02/19/19 00:37 isoniazid Allergy Unknown "HYPOTENSION, Verified 02/19/19 00:37 HYPERHIDROSIS" propoxyphene Allergy Unknown Unknown Verified 02/19/19 00:37 morphine AdvReac Severe DECREASES Verified 02/19/19 00:37 B/P AND PULSE Home Medications Home Medications Medication Instructions Recorded Confirmed Type aspirin 81 mg tablet,delayed 81 mg PO DAILY 10/27/18 02/19/19 History release atorvastatin 20 mg tablet 20 mg PO DAILY #90 tab 10/27/18 02/19/19 Rx metoprolol succinate 100 mg 100 mg PO DAILY #90 tab 10/27/18 02/19/19 Rx tablet,extended release 24 hr hydrochlorothiazide 12.5 mg tablet 12.5 mg PO DAILY #30 tab 01/26/19 02/19/19 Rx losartan 50 mg tablet 50 mg PO DAILY #30 tab 01/26/19 02/19/19 Rx [id number] 1 tab PO DAILY 02/19/19 02/19/19 History [Centrum Silver] Patient History Medical History Anxiety Atrial ectopy Chronic kidney disease, stage III (moderate) Chronic sinusitis Coronary artery calcification Dyslipidemia GERD without esophagitis Hepatic steatosis Hypertension (Chronic) Irritable bowel syndrome (Chronic) 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) Moderate obstructive sleep apnea Multiple pulmonary nodules Osteoarthritis of hip PVC's (premature ventricular contractions) Ventricular tachycardia Vitamin D deficiency Surgical History History of incision and drainage Perirectal abscess S/P cholecystectomy S/P colonoscopy S/P hip replacement left hip Family History Mother Skin cancer Parkinson disease Brother Hypertension Heart transplant recipient Social History Preferred Language: Latvian Beliefs That Will Affect Care: None marital status: Current Living Situation: Spouse current occupational status: retired Feels Safe at Home: Yes Smoking Status: Never smoker Hx Alcohol Use: No Hx Substance Use: No Seatbelt Use: always Review of Systems Review of Systems: All systems reviewed & are unremarkable except as noted in HPI & below Physical Exam Physical Exam: Constitutional: Alert, cooperative and in no distress. HEENT: Unremarkable Neck: No jugular venous distention, carotid pulses are normal and equal bilaterally without bruits. Pulmonary: Clear to auscultation bilaterally. Cardiac: Regular rhythm with no murmur, gallop or rub. Abdomen: Soft, nontender with normal bowel sounds. Extremities: No edema. Distal pulses intact. Neurologic: No focal findings. Gait is steady. Skin: No rash, ecchymoses or petechiae. Results & Data Vital Signs (Past 12 Hours) Vital Signs Temp Pulse Pulse Pulse Resp BP BP 02/19/19 11:12 36.6 C 53 L 20 137/71 02/19/19 08:00 66 02/19/19 07:53 36.6 C 59 L 20 136/79 Pulse Ox 02/19/19 11:12 97 02/19/19 08:00 02/19/19 07:53 98 Diagnostic Findings His electrocardiogram in the emergency room here demonstrates sinus bradycardia at 54 bpm with an IVCD pattern and inferolateral ST-T abnormalities. An echocardiogram done February 19, 2019 at 7 AM demonstrates normal left ventricular size and function with mild concentric left ventricular hypertrophy. This appeared improved compared to March 17, 2016. Telemetry: Sinus rhythm and sinus bradycardia, no heart rates less than 50s PG Care Time/CCT Total # of Minutes Spent Total Time Spent with Patient: Total time spent is greater than 50% in coordination of care (as documented) at patient's floor/unit and/or counseling patient: (1) Syncope Syncope type: unspecified Qualified Code(s): R55 - Syncope and collapse
--- NOTE | 2019-02-20 04:08 | Emergency Department Note ---
Entered by Ashish Mehta acting as a scribe for History of Present Illness General Chief complaint: Syncope Stated complaint: Syncope Time Seen by Provider: 02/19/19 00:02 Source: patient and EMS History of Present Illness Onset (ago): day(s) (tonight) Location: head Pain Consistency: + other (an episode) Quality: + other (syncope) Associated symptoms: + other (Positive for abdominal pain, unconsciousness, diaphoresis, bradycardia, hypotension, shakiness, nausea, vomiting, and an episode of asystole. ) The patient is a 73 year old male who presents to the emergency department with complaints of an episode of syncope occurring tonight. The patient states that he became sick tonight at 2100 after eating a [id number]. He notes that he had abdominal pain at that time. Per EMS, the patients called [id number] tonight because she found him unconscious on the toilet. He notes that the patient appeared diaphoretic when EMS arrived. He reports that the patient was also bradycardic and hypotensive. He states that the patient had had an episode of shakiness en route to the emergency department. He notes that the patient then went unresponsive and had a brief episode of asystole. The patient also complains of nausea and vomiting. He notes that he feels better after vomiting. Home Medications Home Medications Medication Instructions Recorded Confirmed Type aspirin 81 mg tablet,delayed 81 mg PO DAILY 10/27/18 02/19/19 History release atorvastatin 20 mg tablet 20 mg PO DAILY #90 tab 10/27/18 02/19/19 Rx metoprolol succinate 100 mg 100 mg PO DAILY #90 tab 10/27/18 02/19/19 Rx tablet,extended release 24 hr hydrochlorothiazide 12.5 mg tablet 12.5 mg PO DAILY #30 tab 01/26/19 02/19/19 Rx losartan 50 mg tablet 50 mg PO DAILY #30 tab 01/26/19 02/19/19 Rx peiqucut-lkc-FK-lycopen-lutein 1 tab PO DAILY 02/19/19 02/19/19 History [Centrum Silver] Allergies Allergy/AdvReac Type Severity Reaction Status Date / Time bee venom protein (honey bee) Allergy Severe swelling Verified 02/19/19 00:37 hornet venom Allergy Unknown SWELLING Verified 02/19/19 00:37 isoniazid Allergy Unknown "HYPOTENSION, Verified 02/19/19 00:37 HYPERHIDROSIS" propoxyphene Allergy Unknown Unknown Verified 02/19/19 00:37 morphine AdvReac Severe DECREASES Verified 02/19/19 00:37 B/P AND PULSE Past Med/Surg History Social History Preferred Language: Irish Beliefs That Will Affect Care: None marital status: Current Living Situation: Spouse current occupational status: retired Feels Safe at Home: Yes Smoking Status: Never smoker Hx Alcohol Use: No Hx Substance Use: No Seatbelt Use: always Review of Systems See HPI for pertinent positives & negatives. and A total of 10 systems reviewed and were otherwise negative Physical Exam Vital Signs Vital Signs - 24 hr 02/18/19 23:53 02/18/19 23:54 02/19/19 00:00 Temperature 97.7 F Temperature Source Oral Pulse Rate 55 L 52 L 51 L Pulse Rate from SpO2 Sensor 55 L 51 L Respiratory Rate 21 22 23 Blood Pressure 129/74 129/74 Blood Pressure Mean 99 92 Blood Pressure Position Sitting Pulse Oximetry 95 95 Oxygen Delivery Method Room Air Room Air Oxygen Flow Rate Sepsis Recent Fever Within 48 Hours No Sepsis New/Unexplained Change in Mental Status No Sepsis Action Taken by Nursing No Action Required Oxygen Flow Rate - Titration Pulse Oximetry Post Tiitration 02/19/19 00:01 02/19/19 00:15 02/19/19 00:30 Temperature Temperature Source Pulse Rate 53 L 48 L 53 L Pulse Rate from SpO2 Sensor 52 L 49 L 53 L Respiratory Rate 20 20 21 Blood Pressure 134/68 115/67 110/57 L Blood Pressure Mean 86 86 87 Blood Pressure Position Pulse Oximetry 95 97 96 Oxygen Delivery Method Room Air Room Air Room Air Oxygen Flow Rate Sepsis Recent Fever Within 48 Hours Sepsis New/Unexplained Change in Mental Status Sepsis Action Taken by Nursing Oxygen Flow Rate - Titration Pulse Oximetry Post Tiitration 02/19/19 00:45 02/19/19 00:46 02/19/19 01:00 Temperature Temperature Source Pulse Rate 50 L 59 L 56 L Pulse Rate from SpO2 Sensor 51 L 58 L 57 L Respiratory Rate 19 18 26 H Blood Pressure 116/63 94/57 L Blood Pressure Mean 93 69 Blood Pressure Position Pulse Oximetry 93 92 89 L Oxygen Delivery Method Room Air Room Air Room Air Oxygen Flow Rate Sepsis Recent Fever Within 48 Hours Sepsis New/Unexplained Change in Mental Status Sepsis Action Taken by Nursing Oxygen Flow Rate - Titration Pulse Oximetry Post Tiitration 02/19/19 01:03 02/19/19 01:15 02/19/19 01:31 Temperature Temperature Source Pulse Rate 57 L 58 L Pulse Rate from SpO2 Sensor 56 L 56 L Respiratory Rate 23 11 L Blood Pressure 108/64 Blood Pressure Mean 68 Blood Pressure Position Pulse Oximetry 88 L 98 99 Oxygen Delivery Method Room Air Nasal Cannula Nasal Cannula Oxygen Flow Rate 2 2 Sepsis Recent Fever Within 48 Hours Sepsis New/Unexplained Change in Mental Status Sepsis Action Taken by Nursing Oxygen Flow Rate - Titration 2 Pulse Oximetry Post Tiitration 99 02/19/19 01:45 02/19/19 02:00 02/19/19 02:15 Temperature Temperature Source Pulse Rate 59 L 57 L 69 Pulse Rate from SpO2 Sensor 59 L 58 L 65 Respiratory Rate 24 19 22 Blood Pressure 120/69 122/65 132/93 Blood Pressure Mean 78 90 112 Blood Pressure Position Pulse Oximetry 97 97 96 Oxygen Delivery Method Nasal Cannula Nasal Cannula Nasal Cannula Oxygen Flow Rate 2 2 2 Sepsis Recent Fever Within 48 Hours Sepsis New/Unexplained Change in Mental Status Sepsis Action Taken by Nursing Oxygen Flow Rate - Titration Pulse Oximetry Post Tiitration 02/19/19 02:30 02/19/19 02:45 Temperature Temperature Source Pulse Rate 67 66 Pulse Rate from SpO2 Sensor 68 62 Respiratory Rate 31 H 27 H Blood Pressure 142/75 H 139/78 Blood Pressure Mean 86 101 Blood Pressure Position Pulse Oximetry 96 95 Oxygen Delivery Method Nasal Cannula Nasal Cannula Oxygen Flow Rate 2 2 Sepsis Recent Fever Within 48 Hours Sepsis New/Unexplained Change in Mental Status Sepsis Action Taken by Nursing Oxygen Flow Rate - Titration Pulse Oximetry Post Tiitration HEENT: Head - normocephalic and atraumatic Pupils are equal, round, and reactive to light. Extraocular eye muscles are intact. Sclera are icteric. Nose - moist nasal mucosa without discharge. Mouth - moist buccal mucosa. Oropharynx is nonerythematous and there is no tonsillar exudate or edema noted. Neck: Supple; no JVD, nuchal rigidity, cervical lymphadenopathy, or auscultated bruits. Heart: Regular rhythm and bradycardic. There is a normal S1 and S2 with no murmurs, clicks, or gallops appreciated. Lungs: Clear to auscultation bilaterally with no wheezes, rales, or rhonchi. Abdomen: Soft, completely nontender, with good bowel sounds. There are no pa lpable pulsatile masses or hepatosplenomegaly. There is no guarding, rigidity, or rebound noted. Protuberant. Extremities: No evidence of cyanosis, clubbing, or edema. There are easily palpable peripheral pulses. Skin: warm with good turgor and no rashes. Pale and slightly diaphoretic. Course Course 2347: The patient was evaluated in room B1. A complete history and physical examination were performed. Nursing notes and previous electronic medical records were reviewed. IV lock was established and labs were drawn as above. I ordered continuous cardiac monitoring. This revealed sinus bradycardia at 58. 0005: Ondansetron HCl 4mg IV 0103: I reevaluated the patient and spoke with his . She states that the patient also had an episode where he clenched his jaw and had some snoring respirations and left arm shaking. She notes that this episode was similar to episodes that his mother used to have. She reports that the episode only lasted for a few seconds and she states that the patient was not postictal afterwards. 0104: Sodium Chloride 500 mls @ 999 mls/hr IV 0135: Ondansetron HCl 4mg IV 0148: Upon reevaluation, the patient is stable. I discussed the findings and the treatment plan with the patient. He expresses agreement and understanding. I spoke with Dr. Hills of the [facility] Hospitalist Service. She will be evaluated for further management. 0226: I rechecked the patient. Consultations Consultation #1: I reviewed the patient's case with Dr. Hills - Hospitalist, [facility]. She will evaluate the patient for further management. Time: 01:48 Administered Medications Atorvastatin Calcium (Lipitor) 20 mg PO DAILY [facility] Stop: 03/21/19 08:59 Last Admin: 02/19/19 07:52 Dose: 20 mg Documented by: [id number] Hydrochlorothiazide (Hctz) 12.5 mg PO DAILY [facility] Stop: 03/21/19 08:59 Last Admin: 02/19/19 07:52 Dose: 12.5 mg Documented by: [id number] Sodium Chloride (Nss 1000ml) 1,000 mls @ 80 mls/hr IV .[id number] [facility] Stop: 02/20/19 04:26 Last Admin: 02/19/19 17:07 Dose: 80 mls/hr Documented by: [id number] Infusion: 02/19/19 17:07 Dose: 80 mls/hr Documented by: [id number] Admin: 02/19/19 04:39 Dose: 80 mls/hr Documented by: [id number] Losartan Potassium (Cozaar) 50 mg PO DAILY [facility] Stop: 03/21/19 08:59 Last Admin: 02/19/19 07:52 Dose: 50 mg Documented by: [id number] Multivitamins/Minerals (Multivitamin W/ Minerals Tab) 1 tab PO DAILY [facility] Stop: 03/21/19 08:59 Last Admin: 02/19/19 07:53 Dose: 1 tab Documented by: [id number] Discontinued Medications Sodium Chloride (Nss) 500 mls @ 999 mls/hr IV .Q31M ONE Stop: 02/19/19 01:32 Last Infusion: 02/19/19 01:35 Dose: 0 mls/hr Documented by: [id number] Admin: 02/19/19 01:04 Dose: 999 mls/hr Documented by: [id number] Ondansetron HCl (Zofran) 4 mg IV NOW STA Stop: 02/19/19 00:06 Last Admin: 02/19/19 00:05 Dose: 4 mg Documented by: [id number] Ondansetron HCl (Zofran) 4 mg IV NOW STA Stop: 02/19/19 01:34 Last Admin: 02/19/19 01:35 Dose: 4 mg Documented by: [id number] Critical Care Time Critical Care Time: Yes Total Critical Care Time: 50 I have personally spent 50 minutes of critical care time in the direct management of this patient. This includes bedside care, interpretation of diagnostic studies, and testing, discussion with consultants, patient, and family members, and other required patient management activities. This 50 minutes is in excess of all separately billable procedures. Medical Decision Making Differential Diagnosis Differential diagnoses include: cardiac dysrhythmia, vasovagal syncope, foodborne illness, and cardiac ischemia. Medical Records Attestation: I reviewed the patient's medical records. Home Medications Current Medication List: was personally reviewed by me Laboratory Data Attestation: I reviewed the patient's lab results. Result diagrams: 02/19/19 00:17 02/19/19 03:42 Lab Results 12/19/19 12/19/19 Range/Units 00:17 00:17 WBC 9.05 (4.8-10.8) K/uL RBC 4.82 (4.7-6.1) M/uL Hgb 15.3 (14.0-18.0) g/dL Hct 46.3 (42-52) % MCV 96.1 (80-100) fL MCH 31.7 (25-34) pg MCHC 33.0 (32-36) g/dL RDW Std Deviation 49.7 H (36.4-46.3) fL RDW Coeff of Rehana 14.2 (11.5-14.5) % Plt Count 177 (130-400) K/uL MPV 9.2 (7.4-10.4) fL Immature Gran % (Auto) 0.3 % Neut % (Auto) 68.3 % Lymph % (Auto) 20.9 % [place] % (Auto) 8.4 % Eos % (Auto) 1.8 % Baso % (Auto) 0.3 % Immature Gran # (Auto) 0.03 H (0.00-0.02) K/uL Neut # (Auto) 6.18 (1.4-6.5) K/uL Lymph # (Auto) 1.89 (1.2-3.4) K/uL [place] # (Auto) 0.76 H (0.11-0.59) K/uL Eos # (Auto) 0.16 (0-0.5) K/uL Baso # (Auto) 0.03 (0-0.2) K/uL Sodium 140 (136-145) mmol/L Potassium 3.7 (3.5-5.1) mmol/L Chloride 106 (98-107) mmol/L Carbon Dioxide 30 (21-32) mmol/L Anion Gap 4.0 (3-11) BUN 26 H (7-18) mg/dl Creatinine 1.75 H (0.6-1.4) mg/dl Est Cr Clr Drug Dosing 44.6 ml/min Est GFR ( Amer) 43.2 Est GFR (Non-Af Amer) 37.3 BUN/Creatinine Ratio 14.7 (10-20) Glucose 120 H (70-99) mg/dl Calcium 9.1 (8.5-10.1) mg/dl Magnesium 2.2 (1.8-2.4) mg/dl Total Bilirubin 1.8 H (0.2-1) mg/dl AST 25 (15-37) U/L ALT 20 (12-78) U/L Alkaline Phosphatase 104 (45-117) U/L Troponin I < 0.015 (0-0.045) ng/ml Total Protein 8.0 (6.4-8.2) gm/dl Albumin 3.9 (3.4-5.0) gm/dl Globulin 4.1 H (2.5-4.0) gm/dl Albumin/Globulin Ratio 1.0 (0.9-2) TSH 4.110 (0.300-4.500) uIu/ml Imaging Data Radiologist's Impression: Radiology results as stated below per my review and the radiologist's interpretation: CT HEAD: FINDINGS: No intracranial hemorrhage, abnormal intra- or extra-axial collections or parenchymal lesions are seen. The shape and configuration of the cortical sulci, basal cisterns, and ventricles are within normal limits. The karimi-white differentiation is preserved. No evidence of mass effect, midline shift, or edema. The osseous structures are unremarkable. The visualized portions of the paranasal sinuses are clear. IMPRESSION: Normal non-contrast CT scan of the head. Radiologist: Meena Ibarra MD. ECG Data Attestation: I personally reviewed and interpreted this ECG as follows: Indication: + syncope Rate (beats per minute): 54 Rhythm: + sinus bradycardia ECG ST segments: + ST depression (slight ST depression in inferior lead) and + T-wave inversions (Lateral) ECG Findings: no PACs and no PVCs Comparison ECG Date: from (04/28/2016) Change: the following changes noted (Compared to prior, ST depression is new and T wave inversions are old.) Blood Pressure Blood Pressure Findings: Normal blood pressure Blood Pressure Disposition: did not require urgent referral MDM Narrative The patient is a 73 year old male who presents to the emergency department with complaints of an episode of syncope occurring tonight. The patient had a witnessed episode of unresponsiveness by EMS which was associated with a 6- second episode of sinus pause. The patient was monitored very closely here in the emergency department. Pacer pads were in place. The patient had no significant electrolyte abnormalities. However, the patient remained significantly nauseated and received a couple doses of Zofran. He also showed signs of dehydration was given IV crystalloid. The patient has a history of bradycardia but no previous episodes of asystole/sinus pause or syncope. The patient will require admission to the hospital and further evaluation by cardiology. Impression & Plan Bradycardia, Dehydration, Syncope, Vomiting, Total bilirubin, elevated, Sinus pause Discharge Plan Visit Data *Final* Discharge Date/Time: 02/19/19 02:52 Chief Complaint: Syncope Stated Complaint: Syncope ED Provider: Dora Curry Discharge Problem: Bradycardia, Dehydration, Syncope, Vomiting, Total bilirubin, elevated, Sinus pause Patient Disposition: Admitted As Inpatient Discharge Instructions Interventions: ED Discharge Assessment Last Done: 02/19/19 02:52 Discharge Problem: Syncope Qualifiers: Syncope type: unspecified Qualified Code(s): R55 - Syncope and collapse Vomiting Qualifiers: Vomiting type: unspecified Vomiting Intractability: non-intractable Nausea presence: with nausea Qualified Code(s): R11.2 - Nausea with vomiting, unspecified The scribe's documentation has been prepared under my direction and personally reviewed by me in its entirety. I confirm that the note above accurately reflects all work, treatment, procedures, and medical decision making performed by me.
[2019-02-20 05:41] LABS: Basophils # (auto) 0.02 K/uL (0-0.2); Basophils % (auto) 0.4 %; Eosinophils # (auto) 0.15 K/uL (0-0.5); Eosinophils % (auto) 2.7 %; Hemoglobin 12.9 g/dL (14.0-18.0); Immature Granulocytes # (auto) 0.01 K/uL (0.00-0.02); Immature Granulocytes % (auto) 0.2 %; Lymphocytes # (auto) 1.59 K/uL (1.2-3.4); Lymphocytes % (auto) 28.7 %; Mean Corpuscular Hemoglobin 31.4 pg (25-34); Mean Corpuscular Hgb Conc 33.1 g/dL (32-36); Mean Corpuscular Volume 94.9 fL (80-100); Mean Platelet Volume 8.8 fL (7.4-10.4); Monocytes # (auto) 0.51 K/uL (0.11-0.59); Monocytes % (auto) 9.2 %; Neutrophils # (auto) 3.26 K/uL (1.4-6.5); Neutrophils % (auto) 58.8 %; Platelet Count 127 K/uL (130-400); RDW Coefficient of Variation 14.1 % (11.5-14.5); RDW Standard Deviation 48.6 fL (36.4-46.3); Red Blood Count 4.11 M/uL (4.7-6.1); White Blood Count 5.54 K/uL (4.8-10.8)
[2019-02-20 05:50] LABS: INR 1.1 (0.9-1.1); Prothrombin Time 10.9 Seconds (9.0-12.0)
[2019-02-20] MEDS ORDERED: CEFAZOLIN 250 MG/ML 1 GM VIAL IV SCH (06:00)
[2019-02-20] MEDS ORDERED: CEFAZOLIN 2000MG 2,000 MG/15 ML SYR IV SCH (06:00)
[2019-02-20 06:10] LABS: Alanine Aminotransferase 14 U/L (12-78); Albumin Level 2.9 gm/dl (3.4-5.0); Aspartate Aminotransferase 18 U/L (15-37); BUN Creatinine Ratio 14.9 (10-20); Bilirubin Direct < 0.1 mg/dl (0-0.2); Blood Urea Nitrogen 21 mg/dl (7-18); Calcium 8.6 mg/dl (8.5-10.1); Carbon Dioxide 29 mmol/L (21-32); Chloride 107 mmol/L (98-107); Creatinine Clr Calc Pharmacy 54.8 ml/min; Est GFR (African American) 56.1; Est GFR (Non-African American) 48.4; Glucose 104 mg/dl (70-99); Potassium 3.9 mmol/L (3.5-5.1); Sodium 139 mmol/L (136-145)
[2019-02-20 06:19] LABS: Alkaline Phosphatase 85 U/L (45-117); Total Protein 6.3 gm/dl (6.4-8.2)
[2019-02-20] MEDS ORDERED: LACTATED RINGER'S 1,000 ML IV SCH (08:00)
--- NOTE | 2019-02-20 09:55 | Cardiology Progress Note ---
Date of Service February 20, 2019 Assessment & Plan (1) Syncope: His syncope is almost certainly due to bradycardia based on what was observed by the ambulance crew as well as the measurements of his blood pressure and heart rate which were performed by his family using a blood pressure cuff at home during 1 of these episodes. He had multiple episodes over a relatively short period of time, but it occurred certainly for half an hour or so but had resolved by the time he came into the emergency room. He has had no preceding syncope and has not had any since. (2) Bradycardia: Has a history of SSS, his heart rate has been somewhat slow and he is on beta-blockade but we are using that for his cardiomyopathy which may in part be due to premature ventricular beats which seem to be reasonably well suppressed with beta-blockade. He may have a contribution of a vagal event to this episode based on the fact that he was nauseous, however he has never had episodes like this before and he clearly lost consciousness and was unresponsive. I feel he would be best served by pacemaker implantation to minimize the risk of recurrence, even if this were in part vagally mediated. He also has fatigue and overall slow heart rate and pacing may help with that, that is hard to define. I reviewed the procedure of pacemaker implantation with him today and he is agreeable. (3) Cardiomyopathy: He has had a mild cardiomyopathy identified in the past, now with beta- blockade his ejection fraction is normal. We should continue beta-blockade, we will need to reinstitute that once he has his pacemaker in place. The cause of his cardiomyopathy may be multifactorial, possibly related to his frequent premature ventricular beats. (4) PVC's (premature ventricular contractions): He has frequent premature ventricular beats in the past, he still has some but they are not frequent based on telemetry monitoring and Holter monitoring. I would continue beta-blockade. (5) Coronary artery calcification: He has coronary artery calcification on CT scanning but has not had symptoms to suggest ischemia and stress testing in the past has been negative for ischemia. I would treat him as though he has coronary artery disease but I believe it to be nonobstructive. He is on a statin, he was on an aspirin and we should reinstitute that following pacemaker implantation. Subjective He is feeling well today, he has had no further nausea and no further syncope Physical Exam Physical Exam: Constitutional: Alert, cooperative and in no distress. Pulmonary: Clear to auscultation bilaterally. Cardiac: Regular rhythm with no murmur, gallop or rub. Abdomen: Soft, nontender with normal bowel sounds. Extremities: No edema. Skin: No rash, ecchymoses or petechiae. Results & Data Vital Signs (Past 12 Hours) Vital Signs Temp Pulse Pulse Resp BP BP Pulse Ox 02/20/19 08:00 58 L 02/20/19 07:43 36.5 C 61 18 101/53 L 90 02/20/19 04:09 36.5 C 59 L 20 116/63 96 02/20/19 00:40 58 L 02/19/19 23:40 36.6 C 62 16 128/63 92 Laboratory Results Cardiac Enzymes 02/20/19 Range/Units 05:35 AST 18 (15-37) U/L Coagulation 02/20/19 Range/Units 05:35 PT 10.9 (9.0-12.0) Seconds CBC 02/20/19 Range/Units 05:35 WBC 5.54 (4.8-10.8) K/uL RBC 4.11 L (4.7-6.1) M/uL Hgb 12.9 L (14.0-18.0) g/dL Hct 39.0 L (42-52) % Plt Count 127 L (130-400) K/uL Neut # (Auto) 3.26 (1.4-6.5) K/uL Lymph # (Auto) 1.59 (1.2-3.4) K/uL [place] # (Auto) 0.51 (0.11-0.59) K/uL Eos # (Auto) 0.15 (0-0.5) K/uL Baso # (Auto) 0.02 (0-0.2) K/uL Comprehensive Metabolic Panel 02/20/19 Range/Units 05:35 Sodium 139 (136-145) mmol/L Potassium 3.9 (3.5-5.1) mmol/L Chloride 107 (98-107) mmol/L Carbon Dioxide 29 (21-32) mmol/L BUN 21 H (7-18) mg/dl Creatinine 1.41 H (0.6-1.4) mg/dl Glucose 104 H (70-99) mg/dl Calcium 8.6 (8.5-10.1) mg/dl Direct Bilirubin < 0.1 (0-0.2) mg/dl AST 18 (15-37) U/L ALT 14 (12-78) U/L Alkaline Phosphatase 85 (45-117) U/L Total Protein 6.3 L D (6.4-8.2) gm/dl Albumin 2.9 L (3.4-5.0) gm/dl Intake and Output 02/19/19 02/20/19 02/20/19 22:59 06:59 14:59 Intake Total 997.333 / 2056.333 1060 / 2056.333 Output Total 426 / 1776 800 / 1776 Balance 571.333 / 281.333 260 / 281.333 Intake: IV 997.333 / 4741.081 9665 / 1996.333 Nss 1000ML 1,000 ml @ 80 mls/hr 997.333 / 8037.252 4630 / 1996.333 IV .[id number] JOEL Rx#:[id number] Oral 60 / 60 Output: Urine 425 / 1775 800 / 1775 # Bowel Movements Other: Other Intake Source NPO # Bowel Movement Diapers 1 Weight 105.6 kg Diagnostic Findings Telemetry: Sinus rhythm and sinus bradycardia, no significant arrhythmia otherwise PG Care Time/CCT Total # of Minutes Spent Total Time Spent with Patient: Total time spent is greater than 50% in coordination of care (as documented) at patient's floor/unit and/or counseling patient: (1) Syncope Syncope type: unspecified Qualified Code(s): R55 - Syncope and collapse
[2019-02-20] MEDS ORDERED: BACITRACIN INJ 50,000 UNIT VIAL ONE (10:21)
[2019-02-20] MEDS ORDERED: LIDOCAINE HCL 1% 20 ML VIAL ONE (10:21)
--- NOTE | 2019-02-20 10:28 | Pre Anesthesia Assessment ---
Date of Service February 20, 2019 Pre Sedation Assessment Vital Signs Temp Pulse Pulse Resp BP BP Pulse Ox 02/20/19 08:00 58 L 02/20/19 07:43 36.5 C 61 18 101/53 L 90 02/20/19 04:09 36.5 C 59 L 20 116/63 96 02/20/19 00:40 58 L 02/19/19 23:40 36.6 C 62 16 128/63 92 02/19/19 19:14 36.7 C 59 L 18 130/73 96 02/19/19 16:03 36.8 C 55 L 19 134/75 97 02/19/19 16:00 63 02/19/19 11:12 36.6 C 53 L 20 137/71 97 Cardiovascular RRR, no murmur, no edema Respiratory normal respiratory effort, lungs clear to auscultation Pre-Sedation Airway Assessment Smoking Status: Never smoker Hx Sleep Apnea: Yes (cpap at night) Hx Difficult Intubation: No Short, Thick Neck: Yes Thyromental Distance: > or= 3.5 Finger Breadths Oral Cavity: + Dentures Mallampati Class: II ASA: ASA3 NPO Status Date of Last Intake of Fluids: 02/19/19 Time of Last Intake of Fluids: 21:30 Date of Last Intake of Solid Food: 02/20/19 Time of Last Intake of Solid Foods: 21:30 Procedure Planning Contraindications for Sedation: none Current Medications Reviewed: Yes Notes The planned sedation has been discussed with the patient. Informed Consent was obtained. I have identified the patient, determined the appropriateness of sedation and have assessed the patient immediately prior to the procedure. All medicine(s) and interventions are by my order.
[2019-02-20] MEDS ORDERED: CEFAZOLIN 250 MG/ML 1 GM VIAL ONE (10:33)
[2019-02-20] MEDS ORDERED: fentaNYL citrate 100 MCG/2 ML VIAL ONE (10:33)
[2019-02-20] MEDS ORDERED: MIDAZOLAM HCL 5 MG/ML 1 ML VIAL ONE (10:33)
[2019-02-20] MEDS ORDERED: BACITRACIN OINT 0.9 GM PKT ONE (11:03)
[2019-02-20] MEDS ORDERED: KETOROLAC TROMETHAMINE 10 MG TABLET PO PRN (11:40)
[2019-02-20] MEDS ORDERED: ACETAMINOPHEN 325 MG TAB PO PRN (11:40)
--- NOTE | 2019-02-20 11:40 | Operative Report ---
PG Post Operative Report Pre & Post Diagnosis Operation Date: 02/20/19 10:15 Preoperative diagnosis: Sick sinus syndrome Postoperative diagnosis: Same I identified the patient and participated in the time-out.: Yes Procedure Operation Date: 02/20/19 10:15 Actual Procedures p Pacemaker Insertion - Jef Chiu MD Surgeon Jef Chiu MD Manager Lean None Estimated Blood Loss 30 Findings Consistent with Post-Op Diagnosis Specimens None Anesthesia Type Local Complications none Disposition Accompanied Patient To Recovery: Yes Disposition: Recovery Room Description of Procedure After obtaining informed consent for the procedure, the patient was brought to the laboratory and prepped and draped in the standard sterile manner. The left prepectoral region was anesthetized with 1% lidocaine local anesthetic and left axillary venipuncture was performed by percutaneous technique and a guidewire placed through the left subclavian vein into the superior vena cava. The area was further infiltrated with 1% lidocaine local anesthetic and a 5 cm incision was made parallel to the left clavicle and 2 cm below it and carried down to the anterior pectoralis fascia. A pacemaker pocket was formed by blunt dissection anterior to the pectoralis fascia and a bacitracin-soaked sponge (50,000 units in 50 cc normal saline solution) was placed in the pocket. An 8 [employer] Medtronic lead introducer was placed over the guidewire into the lef t subclavian vein, the dilator and guidewire were removed and a bipolar active fixation steroid tipped ventricular lead was advanced through the introducer into the superior vena cava. A guidewire was placed through the introducer and the introducer was stripped from the lead and guidewire. Another 8 Ma[place] Medtronic lead introducer was placed over the guidewire into the left subclavian vein, the dilator and guidewire were removed and a bipolar active fixation steroid tipped atrial lead was advanced through the introducer into the superior vena cava. A guidewire was placed back through the introducer and the introducer was stripped from the lead and guidewire. Using a curved stylette the ventricular lead was advanced through the right ventricular outflow tract into the pulmonary artery and then using a straight stylette was positioned in the mid intraventricular septum. The screw was extended fixing the lead in position. Pacing and sensing thresholds were evaluated in bipolar configuration and are recorded on the implant data sheet. Using a curved stylette the atrial lead was positioned in the region of the atrial appendage and the screw extended fixing the lead in position. Pacing and sensing thresholds were evaluated in bipolar configuration and are recorded on the implant data sheet. Once the leads were in position they were attached to the anterior pectoralis fascia using 2 sutures of 2-0 silk around each lead collar. The bacitracin- soaked sponge was removed from the pocket, hemostasis was obtained, the pacemaker was attached to the leads and placed in the pocket with the leads coiled beneath it. The incision was closed with a running double subcutaneous closure of 3-0 Vicryl absorbable suture, followed by running subcuticular skin closure of 4-0 Vicryl absorbable suture. Bacitracin ointment was placed on the incision and a pressure dressing applied. I attest to the content of the Intraoperative Record and any orders documented therein. Any exceptions are noted below.
[2019-02-20] MEDS: CEROVITE ADV FORMULA TAB PO SCH (12:23)
[2019-02-20] MEDS: LOSARTAN POTASSIUM 50 MG TAB PO SCH (12:23)
[2019-02-20] MEDS: hydroCHLOROthiazide 25 MG TAB PO SCH (12:23)
[2019-02-20] MEDS: ATORVASTATIN 20 MG TAB PO SCH (12:23)
[2019-02-20] MEDS: METOPROLOL SUCC 50MG EXT REL TAB PO SCH (12:43)
--- NOTE | 2019-02-20 15:25 | Medical Student Progress Note ---
Date of Service February 20, 2019 Assessment & Plan (1) Sinus pause: 73 year old male with a history of PVCs, bradycardia, atrial ectopy, cardiomyopathy, HTN, coronary artery calcification, and CKD presents after 3 witnessed episodes of syncope, during one of which sinus pause was recorded. Bradycardia with occasional Sinus pause: -noted during ambulance ride to hospital -beta estevan held -EKG (02/19) showed sinus bradycardia, left axis deviation, and PVCs -Tested negative for Lyme Disease -pacemaker placed 02/20 without complication, will keep overnight to monitor, will interrogate pacemaker tomorrow and plan for DC if normal. Syncope: -no episodes since admission -unremarkable head CT suggests non-neurological cause, most likely secondary to bradycardia and additional vasovagal response after epigastric pain and nausea Acute Kidney Injury superimposed on CKD: -Creatinine 1.75 on admission -1.47 as of 02/19, which is consistent with his baseline creatinine -resolved Hypertension: -beta estevan held because of bradycardia, was started on losartan and HCTZ -BP well-controlled in hospital Epigastric Pain: -? sec to food sensitivity. seems to have resolved after episode of emesis in ED. -Resolved FEN/GI: Heart healthy diet Code Status: Full DVT Prophylaxis: SCDs Dispo: pacemaker placement successful, plan to discharge tomorrow (2) Bradycardia: (3) Syncope: Syncope type: unspecified Qualified Code(s): R55 - Syncope and collapse (4) Acute kidney injury superimposed on chronic kidney disease: (5) Total bilirubin, elevated: (6) Hypertension: Hypertension type: essential hypertension Qualified Code(s): I10 - Essential (primary) hypertension Supervising Attestation Medical Student Supervision Note: I independently interviewed and examined the patient and verified the [place] history and physical, reviewed labs and image studies, discussed the case with Italia Ojeda and agree with the findings and care plan. Subjective Patient has a complicated cardiac history, most notably for PVCs and bradycardia. He was admitted on 02/19 after 3 episodes of witnessed syncope. After consuming two fish sandwiches last night, he developed nausea, then he fell asleep and went to bed. About 2-3 hours later he woke up with bowel urgency. He had a normal BM, but felt very lightheaded, warm, and sweaty. He called his . According to his , he became unconscious. She called 911 and went to the kitchen. In the kitchen, he became unconscious again. On the way to the hospital, EMS put him on a monitor. During the third episode of syncope, they noted 6 seconds of sinus pause. Since then, he has had no syncopal episodes. During none of the episodes did he have confusion or incontinence. He has never had episodes like this occur before. He also had epigastric pain throughout the night, which resolved after vomiting (which occurred right after admission). Does not endorse nausea or vomiting afterward. Today he reports no epigastric pain or nausea; does not endorse chest pain or palpitations. He decided that he did want to be on the oxygen anymore. His saturation on RA has fluctuated, but most recently was 95% on RA. He does endorse some CARTER that he experiences at home and says that he feels that he is at his baseline. Review of Systems Constitutional: no fever and no chills Cardiovascular: + dyspnea on exertion; no chest pain, no palpitations and no syncope Gastrointestinal: no abdominal pain, no nausea and no vomiting Physical Exam Constitutional: WD/WN, vitals as above no acute distress and not edematous Eyes: + anicteric sclerae Respiratory: normal respiratory effort, lungs clear to auscultation no respiratory distress Cardiovascular: Rate/Rhythm: + bradycardic Heart Sounds: no gallop, no murmur and no cardiac rub Extremities: no edema Results & Data Vital Signs (Past 12 Hours) Vital Signs Temp Pulse Pulse Resp BP BP Pulse Ox 02/20/19 15:15 36.7 C 57 L 16 121/69 95 02/20/19 13:25 63 15 142/82 H 96 02/20/19 12:55 62 15 152/81 H 96 02/20/19 12:25 63 15 151/83 H 02/20/19 12:10 36.4 C L 60 16 155/87 H 96 02/20/19 11:52 62 18 131/74 131/74 94 02/20/19 11:41 60 18 131/74 131/41 L 94 02/20/19 08:00 58 L 02/20/19 07:43 36.5 C 61 18 101/53 L 90 02/20/19 04:09 36.5 C 59 L 20 116/63 96 Resident Activity Tracking Resident Involvement: Resident Care Provided Care Provided: Adult Hospital Medicine
--- NOTE | 2019-02-20 16:04 | Post Anesthesia Assessment ---
Date of Service February 20, 2019 Post Sedation Assessment Vital Signs Temp Pulse Pulse Resp BP BP Pulse Ox 02/20/19 15:15 36.7 C 57 L 16 121/69 95 02/20/19 13:25 63 15 142/82 H 96 02/20/19 12:55 62 15 152/81 H 96 02/20/19 12:25 63 15 151/83 H 02/20/19 12:10 36.4 C L 60 16 155/87 H 96 02/20/19 11:52 62 18 131/74 131/74 94 02/20/19 11:41 60 18 131/74 131/41 L 94 02/20/19 08:00 58 L 02/20/19 07:43 36.5 C 61 18 101/53 L 90 02/20/19 04:09 36.5 C 59 L 20 116/63 96 02/20/19 00:40 58 L 02/19/19 23:40 36.6 C 62 16 128/63 92 02/19/19 19:14 36.7 C 59 L 18 130/73 96 Recovery Score Activity: Moves 4 extremities Respiration: Deep Breath/Cough Circulation: +/-20% PreAnes Value Consciousness: Fully Awake Oxygen Saturation: > 92% On Room Air Post Anesthesia Score: 10 Discharge Sedation Level of Care: Fast Track Phase II Post Sedation Plan On clinical assessment, the patient appears to have tolerated the sedation without complications. Patient is recovering as anticipated. Patient will continue to be monitored by nursing and may be discharged when sedation discharge criteria are met per below protocol. Upon Completions of procedure up to 15 minutes continue every 5 minute vital signs and the P.A.R. score; then discharge to a Phase I or Fast Track to Phase II per the following guidelines: * Discharge Patient to appropriate Phase II area if PAR is 8 or greater or return to pre- procedure baseline. The post - procedure orders will be as directed. * If PAR score is less than 8 or not return to pre-procedure baseline then patient will follow Phase I monitoring till PAR is reached for Phase II. The Phase I may be done in procedure room or may call to secure a Phase I area. * If naloxone or flumazenil are used for reversal, hold in Phase I for continued monitoring from when last reversal dose was given for a minimum of 60 minutes or longer pending the nurse and/or physician discretion of patient condition before discharge to Phase II. Please call the Sedation Physician to re-evaluate and complete post-note for discharge to Phase II area. Do NOT discharge from procedure sedation or Phase 1 until post- sedation evaluation note is complete by procedure /sedation MD Sedation Discharge Instructions to be given to the patient at discharge to home.
[2019-02-20] MEDS ORDERED: DOCUSATE SODIUM 100 MG CAP PO PRN (17:40)
[2019-02-20] MEDS ORDERED: Nursing to Pharmacy Communication ONE (21:58)
[2019-02-21 07:29] VITALS: TEMP 97.9; O2SAT 94
--- NOTE | 2019-02-21 07:51 | XRay Report ---
XR chest 2V PA/lateral CLINICAL HISTORY: 73 years-old Male presenting with EXACT TIME ORDERED Evaluate for pneumothorax and l. TECHNIQUE: PA and lateral views of the chest were obtained. COMPARISON: 03/17/2016. FINDINGS: Left subclavian pacer with leads to the right atrium and right ventricle. The right ventricular lead terminates proximal to the apex is slightly more superiorly oriented relative to the expected positio n. Cardiac silhouette mildly enlarged. Several external leads overlie the thorax to grating evaluatio n. Persistent elevation of the right hemidiaphragm. Lungs and pleural spaces clear. Osseous structure s normal. Cholecystectomy clips noted. IMPRESSION: 1. Appropriately positioned right atrial lead of the right subclavian pacer. However, the right vent ricular lead is positioned more proximally and superiorly and may be expected. Correlate for function ing and desired positioning. This does not appear to be in the expected region of the apex. 2. No pneumothorax. 3. Mild cardiomegaly. The report will be called/faxed according to standard departmental protocol. ACT 112: Negative or not required by law. Electronically signed by: Payam Wu M.D. 02/21/2019 7:50 AM
--- NOTE | 2019-02-21 08:29 | Cardiology Progress Note ---
Date of Service February 21, 2019 Assessment & Plan (1) Status post placement of cardiac pacemaker: The pacemaker is working well, measurements are good and chest x-ray shows stable position. I have scheduled a follow-up visit for him in the office on Saturday for a wound check. He should be stable for discharge today as long as his incision looks good. Results & Data Vital Signs (Past 12 Hours) Vital Signs Temp Pulse Pulse Resp BP Pulse Ox 02/21/19 07:00 36.6 C 60 14 134/80 94 02/21/19 03:18 36.7 C 64 20 157/89 H 93 02/20/19 23:43 36.7 C 60 22 154/79 H 95 02/20/19 23:12 60 Diagnostic Findings His postop electrocardiogram shows appropriate pacemaker inhibition Pacemaker evaluation shows excellent pacing and sensing characteristics in both leads Chest x-ray shows good lead position, the ventricular lead was not positioned in apex at implant as noted on the chest x-ray report PG Care Time/CCT Total # of Minutes Spent Total Time Spent with Patient: Total time spent is greater than 50% in coordinat ion of care (as documented) at patient's floor/unit and/or counseling patient:
[2019-02-21] MEDS: METOPROLOL SUCC 50MG EXT REL TAB PO SCH (08:39)
[2019-02-21] MEDS: CEROVITE ADV FORMULA TAB PO SCH (08:40)
[2019-02-21] MEDS: LOSARTAN POTASSIUM 50 MG TAB PO SCH (08:40)
[2019-02-21] MEDS: ATORVASTATIN 20 MG TAB PO SCH (08:41)
[2019-02-21] MEDS: hydroCHLOROthiazide 25 MG TAB PO SCH (08:41)
--- NOTE | 2019-02-21 10:09 | Discharge Summary ---
Date of Service February 21, 2019 Admission HPI Per Admitting Provider Wing Up is a 73yo C male with history of atrial ectopy, PVCs, coronary calcification, HTN/HLP and CKD. He follows with Dr. Chiu, last seen on 01/28/19. He is being managed with beta estevan therapy. The patient ate two fish fillet sandwiches from [employer] this evening. Later in the evening he developed nausea, felt warm and clammy as though he may pass out. He went to the bathroom and had a fairly normal BM. He then called his into the bathroom and asked her to open the window. reports that after she opened the window she turned and saw that her was slumped over on the commode. He appeared tubbs in color and was unresponsive and not breathing. Family also report that he stuck out his bottom lip and it appeared to be swollen. He was unresponsive for only a couple of seconds then woke up. No confusion or incontinence. There was some stiffening of his arm during the event as well. Afterwards the patient walked into his kitchen and had a second episode. Again, he stuck out his lower lip, arm stiffened and he became tubbs, clammy and unresponsive. Episode lasted a few seconds. 911 was called. EMS report that patient was awake and oriented when the arrived. 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 Presently he is complaining of epigastric discomfort as well as dizziness. He reports occasional palpitations and irregular heart beats. Otherwise, no complaints. Specifically denies fevers/chills/nausea/vomiting/diarrhea. He has chronic constipation. Denies dysuria/frequency/urgency. No medication adjustments. No sick contacts or recent travel. He [place] frequently [place] but no known tick exposure. ER Course: Zofran 4mg, NSS 500 Admission Exam Per Admitting Provider General: patient resting comfortably, NAD, non-toxic in appearance, AA&O x 4 Skin: warm, dry, intact, no rashes or lesions HEENT: NC/AT, PERRL, EOMI, mild scleral icterus, conjunctiva without injection, external ear normal to inspection and nontender, nares patent, moist mucus membranes with mild sublingual jaundice, dentition intact, no oropharyngeal lesions, neck supple with soft tissue fullness on left, trachea midline, no LAD, no thyromegaly, no JVD Heart: +S1/S2, regular, bracycardic with frequent PVCs, no m/r/g Lungs: equal air entry bilaterally, no rales/rhonchi/wheezes Abd: +BS, soft, NT/ND, no masses/organomegaly/ascites Ext: warm, 2+ pulses in UE/LE bilaterally, no clubbing/cyanosis or edema Neuro: nonfocal, patient AA&O x 4, speech intact, no facial droop, moving all extremities on command with equal strength 5/5 Principal Diagnosis Bradycardia with sinus pause Discharge Exam Constitutional WD/WN, vitals as above no acute distress and not edematous Eyes + anicteric sclerae ENMT external ear and nose normal, oropharynx normal Mallampati Class: II Respiratory normal respiratory effort, lungs clear to auscultation no respiratory distress Cardiovascular Rate/Rhythm: regular rate (pacemaker) and regular rhythm Heart Sounds: no gallop, no murmur and no cardiac rub Vessels: no JVD Extremities: no edema Chest (Breasts) Chest: + pacemaker Gastrointestinal (Abdomen) normal bowel sounds, soft, nontender, no hepatosplenomegaly Musculoskeletal no cyanosis or clubbing, extremities motor strength 5/5 Skin no rashes, warm and dry Psychiatric A+Ox3, euthymic affect Discharge Data Allergies Allergy/AdvReac Type Severity Reaction Status Date / Time bee venom protein (honey bee) Allergy Severe swelling Verified 02/19/19 00:37 hornet venom Allergy Unknown SWELLING Verified 02/19/19 00:37 isoniazid Allergy Unknown "HYPOTENSION, Verified 02/19/19 00:37 HYPERHIDROSIS" propoxyphene Allergy Unknown Unknown Verified 02/19/19 00:37 morphine AdvReac Severe DECREASES Verified 02/19/19 00:37 B/P AND PULSE Consultations 02/19/19 01:53 ED Decision to Admit Stat 02/19/19 03:27 Consult Cardiology Routine Procedures Performed Operation Date: 02/20/19 10:15 Actual Procedures p Pacer with A/V Leads (Dual) - Jef Chiu MD Ordered Studies 02/19/19 01:10 CT head/brain wo con Urgent 02/19/19 03:27 US liver Routine 02/20/19 10:35 CL Cath Imgs for PACS use only Routine Hospital Course (1) Sinus pause: 73 year old male with a history of PVCs, bradycardia, atrial ectopy, cardiomyopathy, HTN, coronary artery calcification, and CKD presents after 3 witnessed episodes of syncope, during one of which sinus pause was recorded. Bradycardia with occasional Sinus pause: -noted during ambulance ride to hospital -Patient's home Metoprolol was held. -EKG (02/19) showed sinus bradycardia, left axis deviation, and PVCs -Tested negative for Lyme Disease -Pacemaker was placed 02/20 without complications. -Patient was kept overnight s/p pacemaker placement and discharged the following morning since both placement and interrogation of pacemaker were normal. -Patient to follow up with Cardiology after discharge. Syncope: -unremarkable head CT suggested a non-neurological cause, most likely secondary to bradycardia and additional vasovagal response after epigastric pain and nausea Acute Kidney Injury superimposed on CKD: -Creatinine 1.75 on admission -Patient was gently hydrated with IV fluids while inpatient. -Creatinine 1.47 as of 02/19, which was consistent with his baseline creatinine -resolved Hypertension: -Patients home metoprolol was held on admission due to bradycardia. -Patietn's Losartan and HCTZ were continued. -Upon discharge, resumed metoprolol alongside HCTZ and Losartan. Epigastric Pain: -Patient had noted initial epigastric pain that had resolved after 1 episode of emesis in the ED. -Resolved. FEN/GI: Heart healthy diet Code Status: Full DVT Prophylaxis: SCDs while inpatient Dispo: Discharge home (2) Bradycardia: (3) Syncope: (4) Acute kidney injury superimposed on chronic kidney disease: (5) Total bilirubin, elevated: (6) Hypertension: Total Time Total Time Spent Total Time Spent (In Minutes): see attending attestation Discharge Plan Discharge Items Patient Disposition: Home - Self-Care Reason For Visit: SINUS PAUSE, ? SYNCOPE Discharge Diagnosis: Bradycardia with sinus pause Activity: Per Instructions section Non-emergency contact: Primary Care Provider and Sap Basis Consultant Call non-emergency contact if: your symptoms worsen Follow-up/Referrals: Jef Chiu MD [Physician] - 02/23/19 10:00 am Katelyn Jasmine DO [Primary Care Provider] - Diet: Regular Addtl Attending Provider Instructions: Mr. Up, Tello were seen and examined at [facility] from 02/19/2019 to 02/21/2019 after coming into the hospital for concerns of 3 syncopal episodes (passing out) and pauses in your heart. You were monitored on telemetry during your entire stay which showed you had a slow heart rate, and were evaluated by our Sap Basis Consultant who recommended a pacemaker be placed. You underwent a successful pacemaker placement and have noted improvement in your symptoms. Please see below for instructions from your manuscript reader for care after your pacemaker placement ACTIVITY RECOMMENDATIONS: * Do not raise affected arm over head for 2 weeks. SPECIAL CARE INSTRUCTIONS: * If bleeding occurs, apply direct pressure to area for 5 minutes. * Call your doctor if you have severe pain, fever, drainage or bleeding at site. * Keep dressing on and dry for 48 hours then remove. * Keep any scheduled doctor's appointment. * Implant Card - hand held device with website information given. SKIN IRRITATION: * You may experience some redness and/or swelling in the area where radiation was administered. If any skin irritation occurs, please contact your family physician. FOLLOW UP VISIT: Keep any scheduled doctor appointments. Pending Studies at Discharge: No Stand-Alone Forms: [facility] C[facility] Medications and DC Order Prescriptions: Continued aspirin [Adult Low Dose Aspirin] 81 mg tablet,delayed release (DR/EC) 81 mg PO DAILY RF: 0 atorvastatin 20 mg tablet 20 mg PO DAILY Qty: 90 RF: 3 metoprolol succinate 100 mg tablet extended release 24 hr 100 mg PO DAILY Qty: 90 RF: 3 hydrochlorothiazide 12.5 mg tablet 12.5 mg PO DAILY Qty: 30 RF: 2 losartan 50 mg tablet 50 mg PO DAILY Qty: 30 RF: 2 Centrum Silver 0.4-300-250 mg-mcg-mcg Tablet 1 tab PO DAILY RF: 0 Discharge Orders: Discharge Order (Routine); Ordered 02/21/19 Ordered By: Ross Bergeron Admission Data Admit Date/Time: 02/19/19 02:35 Attending Provider: Fidelina Ibarra Admit Provider: Kirti [place] Primary Care Provider: Katelyn Jasmine. Other Providers: Kirti [place] ; Jef Chiu Other Interventions: Discharge Summary Assessment (RN) Last Done: 02/21/19 11:58 DC Date/Time DO NOT enter until pt leaves facility: 02/21/19 12:46 Supervising Physician Co-Signing Physician Notes Resident Physician Supervision Note: I independently interviewed and examined the patient and verified the [place] history and physical, reviewed labs and image studies, discussed the case with the resident Dr. Bergeron and agree with the findings and care plan. Time spent in discharge 35 min Resident Activity Tracking Resident Involvement: Resident Care Provided Care Provided: Adult Hospital Medicine
[2019-02-21 11:59] VITALS: BP 131/74; PULSE 59
== END 2019-02-21 12:46 | disposition home or self-care (01) | DRG 243 ==
LOC: ED 23:47 → SUATTDRO 02-19 02:35 → 2S 02-19 02:35

== ENCOUNTER 2024-04-13 19:45 | Inpatient (IN) ==
[2024-04-13 20:38] LABS: Basophils # (auto) 0.04 K/uL (0.00-0.20); Basophils % (auto) 0.6 %; Eosinophils # (auto) 0.17 K/uL (0.00-0.50); Eosinophils % (auto) 2.4 %; Hematocrit (blood only) 40.2 % (42.0-52.0); Hemoglobin 13.5 g/dl (14.0-18.0); Immature Granulocytes # (auto) 0.03 K/uL (0.01-0.20); Immature Granulocytes % (auto) 0.4 %; Lymphocytes # (auto) 0.34 K/uL (1.20-3.40); Lymphocytes % (auto) 4.8 %; Mean Corpuscular Hemoglobin 31.5 pg (25.0-34.0); Mean Corpuscular Hgb Conc 33.6 g/dL (32.0-36.0); Mean Corpuscular Volume 93.7 fL (80.0-100.0); Mean Platelet Volume 8.8 fL (9.4-12.4); Monocytes # (auto) 0.72 K/uL (0.11-0.59); Monocytes % (auto) 10.1 %; Neutrophils # (auto) 5.85 K/uL (1.40-6.50); Neutrophils % (auto) 81.7 %; Platelet Count 167 K/uL (130-400); RDW Coefficient of Variation 14.9 % (11.5-14.5); RDW Standard Deviation 50.7 fL (36.4-46.3); Red Blood Count 4.29 M/uL (4.70-6.10); White Blood Count 7.15 K/ul (4.8-10.8)
[2024-04-13 20:49] LABS: Albumin Globulin Ratio 1.3 (0.9-2); Albumin Level 4.1 gm/dl (3.4-5.0); BUN Creatinine Ratio 14.1 (10-20); Bilirubin,Total 1.9 mg/dl (0.2-1.0); Calcium 9.2 mg/dl (8.6-10.3); Creatinine Clr Calc Pharmacy 57.8 ml/min; Globulin 3.2 gm/dl (2.5-4.0); Potassium 4.3 mmol/L (3.5-5.1); Total Protein 7.3 gm/dl (6.0-8.3)
[2024-04-13 20:56] LABS: Troponin I High Sensitivity 16.3 pg/ml (0-20)
[2024-04-13 21:02] LABS: Adenovirus PCR Not Detected (NotDetected); Bordetella parapertussis PCR Not Detected (NotDetected); Bordetella pertussis PCR Not Detected (NotDetected); Chlamydia pneumoniae PCR Not Detected (NotDetected); Coronavirus 229E PCR Not Detected (NotDetected); Coronavirus CoV-2 (COVID19)PCR Not Detected (NotDetected); Coronavirus HKU1 PCR Not Detected (NotDetected); Coronavirus NL63 PCR Not Detected (NotDetected); Coronavirus OC43PCR Not Detected (NotDetected); Human Metapneumovirus PCR Not Detected (NotDetected); Influenza A (H1 2009) PCR DETECTED (NotDetected); Influenza B PCR Not Detected (NotDetected); Mycoplasma pneumoniae PCR Not Detected (NotDetected); Parainfluenza Virus 1 PCR Not Detected (NotDetected); Parainfluenza Virus 2 PCR Not Detected (NotDetected); Parainfluenza Virus 3 PCR Not Detected (NotDetected); Parainfluenza Virus 4 PCR Not Detected (NotDetected); Respiratory Syncytial VirusPCR Not Detected (NotDetected); Rhinovirus/Enterovirus PCR Not Detected (NotDetected)
--- NOTE | 2024-04-13 22:29 | Emergency Department Note ---
ED Provider Note History of Present Illness Chief Complaint: Flu Like Symptoms Stated Complaint: HEADACHE, COUGH, FEVER Time Seen by Provider: 04/13/24 21:14 Source: patient Mode of arrival: ambulatory Limitations: no limitations Patient is an 78-year-old male that presents to the emergency department complaints of flulike symptoms since Saturday. Patient notes that he has had a cough, headache and intermittent fever since Saturday. Patient notes that he is wheezing when he coughs and takes deep breaths, denies any history of COPD or asthma but does note that he has sleep apnea and uses CPAP at night. Patient denies any sick contacts that he is aware of. Home Medications Medication Instructions Recorded Confirmed Type kycjypwq-[id number]-[id number] acid 0.4 1 tab PO DAILY 02/19/19 11/25/23 History mg-lycopene 300 mcg-lutein 250 mcg tablet (Centrum Silver) aspirin 81 mg tablet,delayed 81 mg PO DAILY #90 tabs 01/24/21 04/14/24 Rx release (Adult Low Dose Aspirin) cholecalciferol (vitamin D3) 50 50 mcg PO DAILY #90 caps 04/30/22 04/14/24 Rx mcg (2,000 unit) capsule atorvastatin 20 mg tablet 20 mg PO DAILY #90 tabs 09/15/23 04/14/24 Rx betamethasone dipropionate 0.05 % 1 applic topical BID PRN skin 11/21/23 11/25/23 Rx topical cream irritation #45 grams metoprolol succinate 100 mg 100 mg PO DAILY #90 tabs 12/24/23 04/14/24 Rx tablet,extended release 24 hr sulfamethoxazole 800 1 tab PO BID 7 days #14 tabs 12/26/23 Rx mg-trimethoprim 160 mg tablet (Bactrim DS) losartan 50 mg-hydrochlorothiazide 1 tab PO DAILY #90 tabs 03/16/24 04/14/24 Rx 12.5 mg tablet Allergies Allergy/AdvReac Type Severity Reaction Status Date / Time bee venom protein (honey bee) Allergy Severe swelling Verified 11/25/23 10:56 venom-wasp Allergy Severe swelling Verified 11/25/23 10:56 isoniazid Allergy Unknown "HYPOTENSION, Verified 11/25/23 10:56 HYPERHIDROSIS" propoxyphene Allergy Unknown Unknown Verified 11/25/23 10:56 morphine AdvReac Severe DECREASES Verified 11/25/23 10:56 B/P AND PULSE Past Med/Surg History Problem List (Updated 04/14/24 @ 02:34 by ALFRED Orozco) Influenza (Acute) Erectile dysfunction Prediabetes PVCs (premature ventricular contractions) Non-sustained ventricular tachycardia 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) Sick sinus syndrome Irritable bowel syndrome (Chronic) Hypertension (Chronic) 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) Vitamin D deficiency Multiple pulmonary nodules (~09/2011) Moderate obstructive sleep apnea GERD without esophagitis Dyslipidemia Coronary artery calcification Chronic sinusitis Chronic kidney disease, stage III (moderate) Atrial ectopy Anxiety Ventricular tachycardia Osteoarthritis of hip Hepatic steatosis Cardiomyopathy (Chronic) Dyspnea on exertion (Chronic) Medical History COVID-19 (02/2021) Syncope Surgical History History of incision and drainage Perirectal abscess S/P hip replacement left hip S/P colonoscopy S/P cholecystectomy Family History Mother Skin cancer Parkinson disease Brother Hypertension Heart transplant recipient Father Myocardial infarction Denies family history of Ovarian cancer Prostate cancer Breast cancer Colorectal cancer Social History Smoking Status: Never smoker Second Hand Exposure: No; Do You Dip or Chew Tobacco: No; Hx Alcohol Use: No Hx Substance Use: No Preferred Language: Turkmen Communication Ability: Effective Visual Impairment: No Limitations Hearing Ability: Normal Cutting 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 Required: No Beliefs That Will Affect Care: None marital status: Current Living Situation: Spouse current occupational status: retired Feels Safe at Home: Yes Diet: regular Diet Comment: regular caffeine: Yes (coffee) during the past year weight has: remained stable Dental Care, Regularly: No Physical Activity Frequency: Daily Seatbelt Use: always Sunscreen Use: No Assistive Devices: Denture - Upper, Denture - Lower and Glasses Physical Exam Vital Signs Vital Signs - 24 hr 04/13/24 19:57 04/13/24 22:30 04/14/24 00:15 Temperature 38.3 C H 37.0 C 36.8 C Temperature Source Oral Oral Oral Pulse Rate 84 Pulse Rate [Right Finger] 58 L 63 Pulse Rhythm [Right Finger] Regular Regular Pulse Strength [Right Finger] Normal Normal Respiratory Rate 20 20 19 Respiratory Effort / Characteristics Non-Labored Spontaneous Non-Labored Spontaneous Non-Labored Spontaneous Respiratory Depth Normal Normal Normal Respiratory Pattern Regular Regular Blood Pressure 130/56 L Blood Pressure [Right Arm] 102/63 143/65 H Blood Pressure Mean 80 Blood Pressure Mean [Right Arm] 76 91 Blood Pressure Position [Right Arm] Sitting Sitting Pulse Oximetry 92 98 94 Oxygen Delivery Method Room Air Room Air Room Air Sepsis Recent Fever Within 48 Hours Yes Sepsis New/Unexplained Change in Mental Status No Sepsis Action Taken by Nursing No Action Required 04/14/24 00:41 04/14/24 01:00 Temperature Temperature Source Pulse Rate 70 74 Pulse Rate [Right Finger] Pulse Rhythm [Right Finger] Pulse Strength [Right Finger] Respiratory Rate 20 Respiratory Effort / Characteristics Respiratory Depth Respiratory Pattern Blood Pressure 115/87 Blood Pressure [Right Arm] Blood Pressure Mean 94 Blood Pressure Mean [Right Arm] Blood Pressure Position [Right Arm] Pulse Oximetry 95 Oxygen Delivery Method Room Air Sepsis Recent Fever Within 48 Hours Sepsis New/Unexplained Change in Mental Status Sepsis Action Taken by Nursing VITAL SIGNS - Vital signs and nursing notes were reviewed. GENERAL -78-year-old male appearing their stated age, who is in no acute distress. Communicates well with provider and answers questions appropriately. Patient's son is at bedside. HEAD - Normocephalic, Atraumatic. No Mcneil's Sign or Raccoon's Eyes. EYES - PERRL with EOMI bilaterally. Sclera anicteric. Conjunctiva pink and moist with no injection. EARS - No deformities of external structures noted on gross examination bilaterally. NOSE - Midline and without cyanosis. No epistaxis or purulent drainage noted. MOUTH/OROPHARYNX - Without perioral cyanosis. Buccal mucosa pink and moist and without leukoplakia. NECK - Neck with FROM. Supple to palpation. No lymphadenopathy noted. LUNGS - Chest wall symmetric without accessory muscle use, intercostals retractions, or central cyanosis. Patient has some mild wheezes in his bilateral upper lobes, bilateral lower lobes are clear but diminished. No rales or rhonchi noted. CARDIAC - RRR with S1/S2. No murmur, rubs, or gallops appreciated. EXTREMITIES - No edema present. +5/5 strength noted in UE/LE bilaterally. NEUROLOGIC -Sensory intact to light touch throughout. PSYCH - A&Ox3 and cooperates fully with examiner. Pt is very pleasant and interacts well with examiner Course Administered Medications Cefepime HCl (Maxipime 2000mg) 2,000 mg in 20 mls @ 5 mls/min IV Q12H JOEL; Protocol Stop: 04/21/24 01:29 Last Admin: 04/14/24 01:52 Dose: 5 mls/min Documented By: HALEY Discontinued Medications Acetaminophen (Acetaminophen 500 Mg Tab) 1,000 mg PO NOW STA Stop: 04/14/24 00:16 Last Admin: 04/14/24 01:06 Dose: 1,000 mg Documented By: HALEY Albuterol (Albut/Ipratrop 3mg/0.5mg Neb 3 Ml Vial) 3 ml NEB NOW STA; Protocol Stop: 04/14/24 00:33 Last Admin: 04/14/24 01:06 Dose: 3 ml Documented By: HALEY Methylprednisolone (Methylprednisolone 125 Mg/2 Ml Vial) 125 mg IV NOW STA Stop: 04/14/24 01:09 Last Admin: 04/14/24 01:25 Dose: 125 mg Documented By: HALEY Oseltamivir Phosphate (Oseltamivir Phosphate 75 Mg Cap) 75 mg PO NOW STA; Protocol Stop: 04/14/24 01:09 Last Admin: 04/14/24 01:25 Dose: 75 mg Documented By: HALEY Medical Decision Making Differential Diagnosis Influenza, COVID, bronchitis, pneumonia, RSV, among others Medical Records Attestation: I reviewed the patient's medical records. Home Medications was personally reviewed by me Laboratory Data Attestation: I reviewed the patient's lab results. 04/13/24 20:17 04/13/24 20:17 Lab Results 04/13/24 04/13/24 Range/Units 20:00 20:17 WBC 7.15 (4.8-10.8) K/ul RBC 4.29 L (4.70-6.10) M/uL Hgb 13.5 L (14.0-18.0) g/dl Hct 40.2 L (42.0-52.0) % MCV 93.7 (80.0-100.0) fL MCH 31.5 (25.0-34.0) pg MCHC 33.6 (32.0-36.0) g/dL RDW Std Deviation 50.7 H (36.4-46.3) fL RDW Coeff of Rehana 14.9 H (11.5-14.5) % Plt Count 167 (130-400) K/uL MPV 8.8 L (9.4-12.4) fL Immature Gran % (Auto) 0.4 % Neut % (Auto) 81.7 % Lymph % (Auto) 4.8 % Dixon % (Auto) 10.1 % Eos % (Auto) 2.4 % Baso % (Auto) 0.6 % Neut # (Auto) 5.85 (1.40-6.50) K/uL Lymph # (Auto) 0.34 L (1.20-3.40) K/uL Dixon # (Auto) 0.72 H (0.11-0.59) K/uL Eos # (Auto) 0.17 (0.00-0.50) K/uL Baso # (Auto) 0.04 (0.00-0.20) K/uL Immature Gran # (Auto) 0.03 (0.01-0.20) K/uL Sodium 136 (136-145) mmol/L Potassium 4.3 (3.5-5.1) mmol/L Chloride 102 (98-107) mmol/L Carbon Dioxide 27 (21-32) mmol/L Anion Gap 7 (3-11) BUN 18 (6-23) mg/dl Creatinine 1.28 (0.6-1.4) mg/dl Est Cr Clr Drug Dosing 57.8 ml/min eGFR 56.58 BUN/Creatinine Ratio 14.1 (10-20) Glucose 122 H (70-99(Fasting)) mg/dl Calcium 9.2 (8.6-10.3) mg/dl Total Bilirubin 1.9 H (0.2-1.0) mg/dl AST 73 H (13-39) U/L ALT 27 (7-52) U/L Alkaline Phosphatase 91 (34-104) U/L Troponin I High Sens 16.3 (0-20) pg/ml Total Protein 7.3 (6.0-8.3) gm/dl Albumin 4.1 (3.4-5.0) gm/dl Globulin 3.2 (2.5-4.0) gm/dl Albumin/Globulin Ratio 1.3 (0.9-2) Nasal Influ A H1 2009 PCR DETECTED A (NotDetected) Adenovirus (PCR) Not Detected (NotDetected) B. pertussis DNA (PCR) Not Detected (NotDetected) B.parapertussis DNA PCR Not Detected (NotDetected) C. pneumoniae DNA (PCR) Not Detected (NotDetected) Coronavirus OC43 (PCR) Not Detected (NotDetected) Coronavirus HKU1 (PCR) Not Detected (NotDetected) Coronavirus 229E (PCR) Not Detected (NotDetected) SARS-CoV-2 (PCR) Not Detected (NotDetected) Coronavirus NL63 (PCR) Not Detected (NotDetected) Human Metapneumovir PCR Not Detected (NotDetected) Influenza Type B (PCR) Not Detected (NotDetected) M. pneumoniae (PCR) Not Detected (NotDetected) Parainfluenza 1 (PCR) Not Detected (NotDetected) Parainfluenza 2 (PCR) Not Detected (NotDetected) Parainfluenza 3 (PCR) Not Detected (NotDetected) Parainfluenza 4 (PCR) Not Detected (NotDetected) RSV (PCR) Not Detected (NotDetected) Entero/Rhino (PCR) Not Detected (NotDetected) Imaging Data Radiologist's Impression: Chest X-Ray 04/13/24 19:59 Exam(s): XR CXR 1 VIEW EXAM: XR Chest, 1 View CLINICAL HISTORY: Reason for exam: Dyspnea. TECHNIQUE: Frontal view of the chest. COMPARISON: Prior chest x-ray from February 14, 2021. FINDINGS: There is a MR-compatible pacemaker in left chest to distal lead in the right atrium and right ventricle. Lungs: Mild to moderate peribronchial thickening of the central and lower lobe bronchi with increased interstitial opacities in the lower lobes. No consolidation. Pleural space: Unremarkable. No pneumothorax. Heart: Unremarkable. No cardiomegaly. Mediastinum: Unremarkable. Normal mediastinal contour. Bones/joints: Unremarkable. No acute fracture. IMPRESSION: Bronchitis, which may be of infectious or inflammatory etiologies. No consolidation or pleural effusion. Electronically signed by: Kiarra Cochran MD 04/14/24 00:25 AM MDM Narrative Patient is an 78-year-old male that presents to the emergency department complaints of flulike symptoms since Saturday. Patient notes that he has had a cough, headache and intermittent fever since Saturday. Patient notes that he is wheezing when he coughs and takes deep breaths, denies any history of COPD or asthma but does note that he has sleep apnea and uses CPAP at night. Patient denies any sick contacts that he is aware of. Patient was evaluated by myself and findings were noted in the physical exam above. Patient was ordered IV placement, lab work, upper respiratory viral panel, chest x-ray, and EKG. Patient's EKG was interpreted by myself to show the patient in a normal sinus rhythm. Patient's lab work resulted and was relatively unremarkable. Patient had a normal white blood cell count of 7.15. Patient had a hemoglobin that was slightly low at 13.5 and hematocrit that was also low at 40.2. The patient's hemoglobin and hematocrit are around the patient's baseline numbers. Patient has no indication of electrolyte imbalance. Patient had a normal troponin level of 16.3. Patient's upper respiratory viral panel came back positive for nasal influenza A. Patient had a chest x-ray completed and interpreted by radiology which showed bronchitis which may be infectious or inflammatory. No consolidation or pleural effusion noted. I discussed these findings with the patient who verbalized understanding. Patient states that he does not feel comfortable going home and he feels like he cannot take a deep breath and continues to have wheezing when he gets into his coughing spells. I discussed with case management about admitting the patient to the hospital for further evaluation and management. Dr. Coto with [facility] hospitalist group accepted the patient under his service for admission to the hospital. Please refer to [facility] hospitalist group's documentation for further evaluation and management of this patient. Impression Influenza, Dyspnea on exertion Discharge Plan Visit Data Chief Complaint: Flu Like Symptoms Stated Complaint: HEADACHE, COUGH, FEVER ED Provider: Lucy Wayne ED Midlevel Provider: Talia Mckinnon Discharge Problem: Influenza, Dyspnea on exertion Patient Disposition: Admitted As Inpatient Discharge Instructions Interventions: ED Discharge Assessment Last Done: 04/14/24 02:32
--- NOTE | 2024-04-14 00:25 | XRay Report ---
Exam(s): XR CXR 1 VIEW EXAM: XR Chest, 1 View CLINICAL HISTORY: Reason for exam: Dyspnea. TECHNIQUE: Frontal view of the chest. COMPARISON: Prior chest x-ray from February 14, 2021. FINDINGS: There is a MR-compatible pacemaker in left chest to distal lead in the right atrium and right ventricle. Lungs: Mild to moderate peribronchial thickening of the central and lower lobe bronchi with increased interstitial opacities in the lower lobes. No consolidation. Pleural space: Unremarkable. No pneumothorax. Heart: Unremarkable. No cardiomegaly. Mediastinum: Unremarkable. Normal mediastinal contour. Bones/joints: Unremarkable. No acute fracture. IMPRESSION: Bronchitis, which may be of infectious or inflammatory etiologies. No consolidation or pleural effusion. Electronically signed by: Kiarra Cochran MD 04/14/24 00:25 AM
[2024-04-14] MEDS: ACETAMINOPHEN 500 MG TAB PO STA (01:06)
[2024-04-14] MEDS: ALBUT/IPRATROP 3MG/0.5MG NEB 3 ML VIAL NEB STA (01:06)
[2024-04-14] MEDS ORDERED: ALBUT/IPRATROP 3MG/0.5MG NEB 3 ML VIAL NEB PRN (01:08)
[2024-04-14] MEDS: OSELTAMIVIR PHOSPHATE 75 MG CAP PO STA (01:25)
[2024-04-14] MEDS: methylPREDNISolone 125 MG/2 ML VIAL IV STA (01:25)
--- NOTE | 2024-04-14 01:28 | History & Physical Report ---
Date of Service April 14, 2024 Assessment & Plan (1) Acute respiratory failure with hypoxia: (2) Influenza A virus subtype H1 2009 pandemic strain present: (3) Moderate obstructive sleep apnea: (4) Bronchopneumonia: Plan The patient is a 78-year-old male with past medical history including prediabetes, PVCs, nonsustained V. tach, status post placement of cardiac pacemaker, sick sinus syndrome, hypertension, moderate FABI, GERD without esophagitis, CAD, anxiety, hepatic steatosis, and cardiomyopathy. He presents to the emergency department with 3 days of progressively worsening shortness of breath, productive cough, dyspnea on exertion, generalized fatigue and decreased oral intake. Workup in the emergency department included [employer] testing positive for influenza A 2009 strain. Of note, patient had been with his at [facility] about 4 to 5 days ago, and thus has hospital associated exposure for infection as well. He was referred for evaluation for admission due to concerns regarding respiratory process. #Acute respiratory failure with hypoxia/influenza A 2009 pandemic strain/secondary bacterial bronchopneumonia- Start Tamiflu 75 mg p.o. twice daily Solu-Medrol 125 mg IV now, and then 40 mg IV every 8 hours MRSA swab Mucinex 600 mg p.o. every 12 hours DuoNebs every 2 hours as needed Cefepime 2 g IV every 12 hours Azithromycin 500 mg IV daily Zofran 4 mg IV every 6 hours as needed Pantoprazole 40 mg IV daily Droplet precautions History nonsustained V. tach/status post cardiac pacemaker/sick sinus syndrome/hypertension- Temporarily holding losartan/HCTZ Reduce metoprolol succinate from 100 to 50 mg every morning for now Moderate obstructive sleep apnea- Wears CPAP 8 cm at bedtime Chronic medical issues: Hyperlipidemia-continue atorvastatin and aspirin History of Present Illness Chief Complaint: The patient presents to the emergency department with worsening shortness of breath, productive cough, dyspnea on exertion, that initially began about 3 days ago, and worsened today as the day progressed. He reports that he was with his about 4 to 5 days ago, at [facility], and became sick the following date. Primary Care Provider: Katelyn Jasmine DO The patient is a 78-year-old male with past medical history including prediabetes, PVCs, nonsustained V. tach, status post placement of cardiac pacemaker, sick sinus syndrome, hypertension, moderate FABI, GERD without esophagitis, CAD, anxiety, hepatic steatosis, and cardiomyopathy. He presents to the emergency department with 3 days of progressively worsening shortness of breath, productive cough, dyspnea on exertion, generalized fatigue and decreased oral intake. Workup in the emergency department included [employer] testing positive for influenza A 2009 strain. Of note, patient had been with his at [facility] about 4 to 5 days ago, and thus has hospital associated exposure for infection as well. He was referred for evaluation for admission due to concerns regarding respiratory process. Allergies Allergy/AdvReac Type Severity Reaction Status Date / Time bee venom protein (honey bee) Allergy Severe swelling Verified 11/25/23 10:56 venom-wasp Allergy Severe swelling Verified 11/25/23 10:56 isoniazid Allergy Unknown "HYPOTENSION, Verified 11/25/23 10:56 HYPERHIDROSIS" propoxyphene Allergy Unknown Unknown Verified 11/25/23 10:56 morphine AdvReac Severe DECREASES Verified 11/25/23 10:56 B/P AND PULSE Home Medications Medication Instructions Recorded Confirmed Type kzvwnahi-[id number] acid 0.4 1 tab PO DAILY 02/19/19 11/25/23 History mg-lycopene 300 mcg-lutein 250 mcg tablet (Centrum Silver) aspirin 81 mg tablet,delayed 81 mg PO DAILY #90 tabs 01/24/21 04/14/24 Rx release (Adult Low Dose Aspirin) cholecalciferol (vitamin D3) 50 50 mcg PO DAILY #90 caps 04/30/22 04/14/24 Rx mcg (2,000 unit) capsule atorvastatin 20 mg tablet 20 mg PO DAILY #90 tabs 09/15/23 04/14/24 Rx betamethasone dipropionate 0.05 % 1 applic topical BID PRN skin 11/21/23 11/25/23 Rx topical cream irritation #45 grams metoprolol succinate 100 mg 100 mg PO DAILY #90 tabs 12/24/23 04/14/24 Rx tablet,extended release 24 hr sulfamethoxazole 800 1 tab PO BID 7 days #14 tabs 12/26/23 Rx mg-trimethoprim 160 mg tablet (Bactrim DS) losartan 50 mg-hydrochlorothiazide 1 tab PO DAILY #90 tabs 03/16/24 04/14/24 Rx 12.5 mg tablet Past Med/Surg History Problem List (Updated 04/14/24 @ 04:33 by Ismael Valerio MD) Bronchopneumonia Influenza A virus subtype H1 2009 pandemic strain present Acute respiratory failure with hypoxia Influenza (Acute) Erectile dysfunction Prediabetes PVCs (premature ventricular contractions) Non-sustained ventricular tachycardia 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) Sick sinus syndrome Irritable bowel syndrome (Chronic) Hypertension (Chronic) 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) Vitamin D deficiency Multiple pulmonary nodules (~09/2011) Moderate obstructive sleep apnea GERD without esophagitis Dyslipidemia Coronary artery calcification Chronic sinusitis Chronic kidney disease, stage III (moderate) Atrial ectopy Anxiety Ventricular tachycardia Osteoarthritis of hip Hepatic steatosis Cardiomyopathy (Chronic) Dyspnea on exertion (Chronic) Medical History COVID-19 (02/2021) Syncope Surgical History History of incision and drainage Perirectal abscess S/P hip replacement left hip S/P colonoscopy S/P cholecystectomy Family History Mother Skin cancer Parkinson disease Brother Hypertension Heart transplant recipient Father Myocardial infarction Denies family history of Ovarian cancer Prostate cancer Breast cancer Colorectal cancer Social History Smoking Status: Never smoker Second Hand Exposure: No; Do You Dip or Chew Tobacco: No; Hx Alcohol Use: No Hx Substance Use: No Preferred Language: Turkish Communication Ability: Effective Visual Impairment: No Limitations Hearing Ability: Normal Travel Physical Therapist Required: No Beliefs That Will Affect Care: None marital status: Current Living Situation: Spouse current occupational status: retired Feels Safe at Home: Yes Diet: regular Diet Comment: regular caffeine: Yes (coffee) during the past year weight has: remained stable Dental Care, Regularly: No Physical Activity Frequency: Daily Seatbelt Use: always Sunscreen Use: No Assistive Devices: Denture - Upper, Denture - Lower and Glasses Review of Systems Review of Systems: The patient denies chest pain, palpitations, lower extremity swelling, sore throat, fevers, chills, sweats, vomiting, diarrhea , constipation, abdominal pain, pelvic pain, blood in urine or stool, dysuria, urinary frequency or urgency, lightheadedness, dizziness, headache, memory loss, loss of consciousness, rash, abnormal bruising or bleeding, imbalance, focal weakness, numbness or tingling in arms or legs, back or neck pain, or night sweats. The review of systems is otherwise negative other than for that already noted above, and at least 10 systems have been reviewed. Physical Exam Physical Exam: The patient is awake, alert and oriented 3, well developed and well nourished, normocephalic and atraumatic, lying in bed and in no acute distress. HEENT--PERRL, EOMI, mucous membranes and oropharynx dry. Neck--supple. No JVD. No bruits. Thyroid normal, trachea midline, no adenopathy. Heart--normal S1 and S2. No murmurs, rubs or gallops. Lungs--few coarse breath sounds bilaterally with scattered wheezes. Mild respiratory distress associated with paroxysmal cough. No accessory muscle use. Abdomen--normal bowel sounds and soft. Nontender. Nondistended, no hernias or masses, no organomegaly. Extremities--no cyanosis or clubbing. No edema. Dermatologic--normal skin turgor, normal color, no abnormal lymph nodes, no rash. Neurologic--cranial nerves II through XII grossly intact. Rheumatologic--normal range of motion. Psychiatric--normal affect. Results & Data Results & Data Vital Signs (Past 12 Hours) Vital Signs Temp Pulse Pulse Resp BP BP Pulse Ox 04/14/24 01:00 74 20 115/87 95 04/14/24 00:41 70 04/14/24 00:15 36.8 C 63 19 143/65 H 94 04/13/24 22:30 37.0 C 58 L 20 102/63 98 04/13/24 19:57 38.3 C H 84 20 130/56 L 92 O2 Del Method 04/14/24 01:00 Room Air 04/14/24 00:41 04/14/24 00:15 Room Air 04/13/24 22:30 Room Air 04/13/24 19:57 Room Air Laboratory Results Laboratory Results WBC 7.15 K/ul (4.8-10.8) 04/13/24 20:17 RBC 4.29 M/uL (4.70-6.10) L 04/13/24 20:17 Hgb 13.5 g/dl (14.0-18.0) L 04/13/24 20:17 Hct 40.2 % (42.0-52.0) L 04/13/24 20:17 MCV 93.7 fL (80.0-100.0) 04/13/24 20:17 MCH 31.5 pg (25.0-34.0) 04/13/24 20:17 MCHC 33.6 g/dL (32.0-36.0) 04/13/24 20:17 RDW Std Deviation 50.7 fL (36.4-46.3) H 04/13/24 20:17 RDW Coeff of Rehana 14.9 % (11.5-14.5) H 04/13/24 20:17 Plt Count 167 K/uL (130-400) 04/13/24 20:17 MPV 8.8 fL (9.4-12.4) L 04/13/24 20:17 Immature Gran % (Auto) 0.4 % 04/13/24 20:17 Neut % (Auto) 81.7 % 04/13/24 20:17 Lymph % (Auto) 4.8 % 04/13/24 20:17 [place] % (Auto) 10.1 % 04/13/24 20:17 Eos % (Auto) 2.4 % 04/13/24 20:17 Baso % (Auto) 0.6 % 04/13/24 20:17 Neut # (Auto) 5.85 K/uL (1.40-6.50) 04/13/24 20:17 Lymph # (Auto) 0.34 K/uL (1.20-3.40) L 04/13/24 20:17 [place] # (Auto) 0.72 K/uL (0.11-0.59) H 04/13/24 20:17 Eos # (Auto) 0.17 K/uL (0.00-0.50) 04/13/24 20:17 Baso # (Auto) 0.04 K/uL (0.00-0.20) 04/13/24 20:17 Immature Gran # (Auto) 0.03 K/uL (0.01-0.20) 04/13/24 20:17 Sodium 136 mmol/L (136-145) 04/13/24 20:17 Potassium 4.3 mmol/L (3.5-5.1) 04/13/24 20:17 Chloride 102 mmol/L (98-107) 04/13/24 20:17 Carbon Dioxide 27 mmol/L (21-32) 04/13/24 20:17 Anion Gap 7 (3-11) 04/13/24 20:17 BUN 18 mg/dl (6-23) 04/13/24 20:17 Creatinine 1.28 mg/dl (0.6-1.4) 04/13/24 20:17 Est Cr Clr Drug Dosing 57.8 ml/min 04/13/24 20:17 eGFR 56.58 04/13/24 20:17 BUN/Creatinine Ratio 14.1 (10-20) 04/13/24 20:17 Glucose 122 mg/dl (70-99(Fasting)) H 04/13/24 20:17 Calcium 9.2 mg/dl (8.6-10.3) 04/13/24 20:17 Total Bilirubin 1.9 mg/dl (0.2-1.0) H 04/13/24 20:17 AST 73 U/L (13-39) H 04/13/24 20:17 ALT 27 U/L (7-52) 04/13/24 20:17 Alkaline Phosphatase 91 U/L (34-104) 04/13/24 20:17 Troponin I High Sens 16.3 pg/ml (0-20) 04/13/24 20:17 Total Protein 7.3 gm/dl (6.0-8.3) 04/13/24 20:17 Albumin 4.1 gm/dl (3.4-5.0) 04/13/24 20:17 Globulin 3.2 gm/dl (2.5-4.0) 04/13/24 20:17 Albumin/Globulin Ratio 1.3 (0.9-2) 04/13/24 20:17 Nasal Influ A H1 2008 PCR DETECTED (NotDetected) A 04/13/24 20:00 Nasal Screen MRSA (PCR) Negative (Negative) 04/14/24 01:32 Adenovirus (PCR) Not Detected (NotDetected) 04/13/24 20:00 B. pertussis DNA (PCR) Not Detected (NotDetected) 04/13/24 20:00 B.parapertussis DNA PCR Not Detected (NotDetected) 04/13/24 20:00 C. pneumoniae DNA (PCR) Not Detected (NotDetected) 04/13/24 20:00 Coronavirus OC43 (PCR) Not Detected (NotDetected) 04/13/24 20:00 Coronavirus HKU1 (PCR) Not Detected (NotDetected) 04/13/24 20:00 Coronavirus 229E (PCR) Not Detected (NotDetected) 04/13/24 20:00 SARS-CoV-2 (PCR) Not Detected (NotDetected) 04/13/24 20:00 Coronavirus NL63 (PCR) Not Detected (NotDetected) 04/13/24 20:00 Human Metapneumovir PCR Not Detected (NotDetected) 04/13/24 20:00 Influenza Type B (PCR) Not Detected (NotDetected) 04/13/24 20:00 M. pneumoniae (PCR) Not Detected (NotDetected) 04/13/24 20:00 Parainfluenza 1 (PCR) Not Detected (NotDetected) 04/13/24 20:00 Parainfluenza 2 (PCR) Not Detected (NotDetected) 04/13/24 20:00 Parainfluenza 3 (PCR) Not Detected (NotDetected) 04/13/24 20:00 Parainfluenza 4 (PCR) Not Detected (NotDetected) 04/13/24 20:00 RSV (PCR) Not Detected (NotDetected) 04/13/24 20:00 Entero/Rhino (PCR) Not Detected (NotDetected) 04/13/24 20:00 Impressions Chest X-Ray 04/13/24 19:59 Exam(s): XR CXR 1 VIEW EXAM: XR Chest, 1 View CLINICAL HISTORY: Reason for exam: Dyspnea. TECHNIQUE: Frontal view of the chest. COMPARISON: Prior chest x-ray from February 14, 2021. FINDINGS: There is a MR-compatible pacemaker in left chest to distal lead in the right atrium and right ventricle. Lungs: Mild to moderate peribronchial thickening of the central and lower lobe bronchi with increased interstitial opacities in the lower lobes. No consolidation. Pleural space: Unremarkable. No pneumothorax. Heart: Unremarkable. No cardiomegaly. Mediastinum: Unremarkable. Normal mediastinal contour. Bones/joints: Unremarkable. No acute fracture. IMPRESSION: Bronchitis, which may be of infectious or inflammatory etiologies. No consolidation or pleural effusion. Electronically signed by: Kiarra Cochran MD 04/14/24 00:25 AM Code Status & VTE Plan Code Status Full code VTE Prophylaxis Plan VTE Prophylaxis will be ordered: Yes PG Care Time/CCT Total # of Minutes Spent Total Time Spent with Patient: Total time spent is greater than 50% in coordination of care (as documented) at patient's floor/unit and/or counseling patient: Coding Level of Care Code 86265 INT INP/OBS CARE 3/75MIN Diagnoses Acute respiratory failure with hypoxia J96.01 Influenza A virus subtype H1 2009 pandemic strain present J10.1 Moderate obstructive sleep apnea G47.33 Bronchopneumonia J18.0
--- NOTE | 2024-04-14 01:46 | Emergency Department Note ---
ED Visit Note I was consulted by the Advanced Practice Provider, ALFRED Trujillo. I performed a substantive portion of the visit. This includes aspects of: History: Patient is an 78-year-old male presenting with flu-like symptoms. Reports symptoms started 5 days ago. He has had a cough, headache and intermittent fevers. He states that he feels very wheezy when he coughs and tries to take a deep breath. He denies any chest pain. MDM: - Laboratory workup interpreted by myself showed normal WBC; stable electrolytes; baseline hyperbilirubinemia; normal troponin - Patient tested positive for influenza A - CXR negative for pneumonia, per my interpretation - Patient disclosed that he does not feel safe going home secondary to feeling like he cannot catch his breath and wheezing when he gets a coughing spell. Will admit to hospitalist service for further evaluation and management. .
[2024-04-14] MEDS: CEFEPIME 2000MG 2,000 MG/20 ML SYR IV SCH (01:52)
[2024-04-14] MEDS ORDERED: ONDANSETRON INJ 2 MG/ML 2 ML VIAL IV PRN (02:31)
[2024-04-14] MEDS ORDERED: ACETAMINOPHEN 325 MG TAB PO PRN (02:31)
[2024-04-14] MEDS ORDERED: TRIAMCINOLONE ACET 0.5% CR 15 GM TUBE TOP PRN (02:52)
[2024-04-14 06:44] LABS: Basophils # (auto) 0.03 K/uL (0.00-0.20); Basophils % (auto) 0.5 %; Eosinophils # (auto) 0.01 K/uL (0.00-0.50); Eosinophils % (auto) 0.2 %; Hematocrit (blood only) 38.6 % (42.0-52.0); Immature Granulocytes # (auto) 0.03 K/uL (0.01-0.20); Immature Granulocytes % (auto) 0.5 %; Lymphocytes # (auto) 0.62 K/uL (1.20-3.40); Lymphocytes % (auto) 10.3 %; Mean Corpuscular Hemoglobin 31.7 pg (25.0-34.0); Mean Corpuscular Hgb Conc 33.7 g/dL (32.0-36.0); Mean Corpuscular Volume 94.1 fL (80.0-100.0); Mean Platelet Volume 8.9 fL (9.4-12.4); Monocytes # (auto) 0.16 K/uL (0.11-0.59); Monocytes % (auto) 2.7 %; Neutrophils # (auto) 5.16 K/uL (1.40-6.50); Neutrophils % (auto) 85.8 %; Platelet Count 147 K/uL (130-400); RDW Coefficient of Variation 14.9 % (11.5-14.5); RDW Standard Deviation 51.6 fL (36.4-46.3); White Blood Count 6.01 K/ul (4.8-10.8)
[2024-04-14 07:05] LABS: Albumin Globulin Ratio 1.2 (0.9-2); Albumin Level 3.7 gm/dl (3.4-5.0); BUN Creatinine Ratio 16.3 (10-20); Bilirubin,Total 1.9 mg/dl (0.2-1.0); Calcium 8.7 mg/dl (8.6-10.3); Creatinine Clr Calc Pharmacy 50.3 ml/min; Globulin 3.1 gm/dl (2.5-4.0); Potassium 4.3 mmol/L (3.5-5.1); Total Protein 6.8 gm/dl (6.0-8.3)
[2024-04-14] MEDS ORDERED: OSELTAMIVIR PHOSPHATE SUSP 75 MG/12.5 ML UDP PO SCH (09:00)
[2024-04-14] MEDS ORDERED: methylPREDNISolone 10 mg/mL (For Ped Dose < 7mg) IV SCH (09:00)
[2024-04-14] MEDS ORDERED: AZITHROMYCIN 500 MG VIAL IV SCH (09:00)
[2024-04-14] MEDS: METOPROLOL SUCC 50MG EXT REL TAB PO SCH (09:14)
[2024-04-14] MEDS: ATORVASTATIN 20 MG TAB PO SCH (09:14)
[2024-04-14] MEDS: CEROVITE ADV FORMULA TAB PO SCH (09:14)
[2024-04-14] MEDS: CHOLECALCIFEROL 25 MCG (1000 UNITS) TAB PO SCH (09:14)
[2024-04-14] MEDS: OSELTAMIVIR PHOSPHATE SUSP 30 MG/5 ML UDP PO SCH (09:15)
[2024-04-14] MEDS: methylPREDNISolone 40 MG in SYRINGE 0 ML IV SCH (09:15)
--- OUTSIDE RECORDS SUMMARY | 2024-04-14 09:17 | External Medical Summary | Summary of Care ---
Author Name Unknown Organization [facility] Address [address] [place] [address] Phone [phone] Care Team Providers Care Compensation Supervisor Name Role Phone Marina Ibanez PA-C Primary Care Provid er Encounter Details Date Type Department Care Team (Late st Contact Info) Description 03/23/2024 Population Health External Data Unspecified Department Allergies Active Allergy Reactions Criticality Noted Date Comments Bee Venom 08/29/2010 Isoniazid Unknown 10/09/2016 Cardiac issues-unknown Morphine Hypotension 09/02/2013 Had for a kidney stone, got short of breath, hypotension, and also had a pain across his head Propoxyphene 10/30/2000 darvon documented as of this encounter (statuses as of 03/23/2024) Medications IBUPROFEN 200 MG PO CAPS one tablet twice a day as needed Active Aspirin 81 MG Tablet Take 81 mg by mouth daily. Active multivitamin (MVI) Tablet Take 1 Tab by mouth daily. Active atorvaSTATin (LIPITOR) 20 MG Tablet Take 20 mg by mouth daily. Active metoprolol succinate XL (TOPROL XL) 100 MG TB24 Take 100 mg by mouth daily. Active losartan-hctz 50-12.5 mg per tab (HYZAAR) 50-12.5 MG per tablet Take 1 Tab by mouth daily. Active Losartan Potassium-HCTZ 50-12.5 MG Oral Tablet (Hyzaar) TAKE ONE TABLET BY MOUTH EVERY DAY 90 Tablet 1 10/16/2021 Active Metoprolol Succinate ER 100 MG Oral Tablet Extended Release 24 Hour (toPROL XL) TAKE ONE TABLET BY MOUTH EVERY DAY 90 Tablet 1 10/16/2021 Active Atorvastatin Calcium 20 MG Oral Tablet (Lipitor) TAKE ONE TABLET BY MOUTH EVERY DAY 90 Tablet 3 10/04/2021 Active Sulfamethoxazole -Trimethoprim 800-160 MG Oral Tablet (Bactrim DS) take one tablet by mouth twice a day for 7 days. 14 Tablet 07/27/2023 Active Atorvastatin Calcium 20 MG Oral Tablet (Lipitor) Take 1 Tablet by mouth daily. 90 Tablet 3 03/11/2024 6:50 AM EST 09/15/2023 Active Metoprolol Succinate ER 100 MG Oral Tablet Extended Release 24 Hour (toPROL XL) Take 1 tablet by mouth daily 90 Tablet 1 12/25/2023 10:04 AM EDT 12/24/2023 Active Losartan Potassium-HCTZ 50-12.5 MG Oral Tablet (Hyzaar) take 1 tablet by mouth daily 90 Tablet 1 03/20/2024 8:24 AM EST 03/16/2024 Active documented as of this encounter (statuses as of 03/23/2024) Active Problems Problem Noted Date Diagnosed Date Diverticulosis 09/02/2013 Calculus of kidney 10/25/2004 Overview (10/27/2004): Seen in [facility] ER for 4 mm right distal ureteral calculus Herpes zoster 12/09/2000 documented as of this encounter (statuses as of 03/23/2024) Resolved Problems Problem Noted Date Diagnosed Date Resolved Date ADVANCE DIRECTIVE INFORMATION 08/05/2006 01/06/2024 Overview (08/05/2006): No, Advance Directive brochure offered , patient declined. documented as of this encounter (statuses as of 03/23/2024) Immunizations Name Administration Dates Next Due TDAP, Age 7 and older, IM (Adacel) 07/14/2007 documented as of this encounter Social History Tobacco Use Types Packs/Day Years Used Date Smoking Tobacco: Never Smokeless Tobacco: Never Alcohol Use Standard Drinks/Week Comments Yes 0 (1 standard drink = 0.6 oz pur e alcohol) rarely Sex and Gender Information Value Date Recorded Sex Assigned at Not on file Legal Sex Male 5:26 AM EST Gender Identity Not on file Sexual Orientation Not on file documented as of this encounter Plan of Treatment Scheduled Procedures Name Priority Associated Diagnoses Date/Ti me COLONOSCOPY FLEXIBLE PROXIMAL DIAGNOSTIC Recall History of colon polyps Health Maintenance Due Date Last Done Comments Depression Screening 1957 Pneumococcal Vaccine: 50+ Years (1 of 1 - PCV) 11/04/1993 Zoster Vaccines (1 of 2) 11/04/1993 *ADVANCE DIRECTIVE NOT ON FILE 03/21/2014 Colonoscopy 10/23/2021 10/23/2016, 10/03, 09/17/2013, Additional history exists COVID-19 Vaccine ( - 2023- season) 2023 Influenza Vaccine (FLU shot) (#1) 2023 DTap/Tdap Vaccines (3 - Td or Tdap) 12/28/2032 12/28/2022, 07/14/2007 RETIRED - COLONOSCOPY-EVERY 5 YRS AGES 18-100 Discontinued 10/23/2016, 10/23/2016, 09/17/2013, Additional history exists HPV (Gardasil) Vaccine Aged Out No lo nger eligible based on patient's age to complete this topic Hepatitis B Vaccine Aged Out No longe r eligible based on patient's age to complete this topic MENINGOCOCCAL (MENACTRA/MENVEO) Aged Out No longer eligible based on patient's age to complete this topic documented as of this encounter Medical Devices Not on filedocumented as of this encounter Care Teams Compensation Supervisor Relationship Specialty Start Date End Date Marina Ibanez, PA-C [address] [place] [address] [place] [id number] PCP - General Physician Hematologist Oncologist 10/25/16 documented as of this encounter
[2024-04-14] MEDS: AZITHROMYCIN 500 MG in SODIUM CHLORIDE 0.9% 250 ML IV SCH (09:21)
[2024-04-14] MEDS: ASPIRIN 81 MG ECTAB PO SCH (09:27)
[2024-04-14] MEDS: guaiFENesin 600 MG TABCR PO SCH (09:27)
[2024-04-14] MEDS: PANTOprazole 40 MG/10 ML SYR IV SCH (09:28)
--- NOTE | 2024-04-14 16:17 | History & Physical Bridge Note ---
Date of Service April 14, 2024 History & Physical Bridge Note I have examined the patient, reviewed the History & Physical and in the interval since the performance of the History & Physical I have noted the following changes of clinical significance: Pt coughing up yellow sputum. Does feel a little better than yesterday. Vitals reviewed RRR no mgr Lung swith exp wheezes bilat Ext 1+ DP pulses bilat, left anterior leg with wound with dressing, no edema Add sputum culture Wound care consult for chronic left leg wound-f/u outpt for possible PAD continue abx, steroids, nebs, tamiflu
--- NOTE | 2024-04-15 05:22 | Electrocardiogram Report ---
Test Reason : Blood Pressure : */* mmHG Vent. Rate : 74 BPM Atrial Rate : 74 BPM P-R Int : 198 ms QRS Dur : 140 ms QT Int : 430 ms P-R-T Axes : 50 -69 39 degrees QTcB Int : 477 ms Sinus rhythm with occasional Premature ventricular complexes and atrial-paced complexes Left axis deviation Non-specific intra-ventricular conduction block Abnormal ECG When compared with ECG of 14-Feb-2021 17:06, Questionable change in QRS duration Confirmed by Raj Stringer ([id number] on 04/15/2024 5:21:36 AM Referred By: REFERRED SELF Confirmed By: Raj Stringer
[2024-04-15 07:15] LABS: Hematocrit (blood only) 37.1 % (42.0-52.0); Hemoglobin 12.5 g/dl (14.0-18.0); Immature Granulocytes # (auto) 0.05 K/uL (0.01-0.20); Immature Granulocytes % (auto) 0.7 %; Lymphocytes # (auto) 0.75 K/uL (1.20-3.40); Lymphocytes % (auto) 10.4 %; Mean Corpuscular Hemoglobin 31.2 pg (25.0-34.0); Mean Corpuscular Hgb Conc 33.7 g/dL (32.0-36.0); Mean Corpuscular Volume 92.5 fL (80.0-100.0); Mean Platelet Volume 9.2 fL (9.4-12.4); Monocytes # (auto) 0.48 K/uL (0.11-0.59); Monocytes % (auto) 6.7 %; Neutrophils # (auto) 5.92 K/uL (1.40-6.50); Neutrophils % (auto) 82.2 %; Platelet Count 144 K/uL (130-400); RDW Coefficient of Variation 14.6 % (11.5-14.5); RDW Standard Deviation 49.5 fL (36.4-46.3); Red Blood Count 4.01 M/uL (4.70-6.10)
[2024-04-15 07:29] VITALS: RESP 18
[2024-04-15 07:34] LABS: Albumin Globulin Ratio 1.1 (0.9-2); Albumin Level 3.4 gm/dl (3.4-5.0); BUN Creatinine Ratio 27.5 (10-20); Bilirubin,Total 1.2 mg/dl (0.2-1.0); Calcium 8.4 mg/dl (8.6-10.3); Creatinine Clr Calc Pharmacy 51.1 ml/min; Magnesium 2.1 mg/dl (1.7-2.4); Potassium 4.4 mmol/L (3.5-5.1); Total Protein 6.4 gm/dl (6.0-8.3)
[2024-04-15 11:02] VITALS: TEMP 97.3; O2SAT 96
--- NOTE | 2024-04-15 14:11 | Discharge Summary ---
Discharge Summary Date of Service April 15, 2024 Principal Dx & Hospital Course #1 = Principal Diagnosis (1) Acute respiratory failure with hypoxia: (2) Influenza A virus subtype H1 2009 pandemic strain present: (3) Moderate obstructive sleep apnea: (4) Bronchopneumonia: Plan The patient is a 78-year-old male with past medical history including prediabetes, PVCs, nonsustained V. tach, status post placement of cardiac pace maker, sick sinus syndrome, hypertension, moderate FABI, GERD without esophagitis, CAD, anxiety, hepatic steatosis, and cardiomyopathy. He presents to the emergency department with 3 days of progressively worsening shortness of breath, productive cough, dyspnea on exertion, generalized fatigue and decreased oral intake. Workup in the emergency department included [employer] testing positive for influenza A 2009 strain. Of note, patient had been with his at [facility] about 4 to 5 days ago, and thus has hospital associated exposure for infection as well. He was referred for evaluation for admission due to concerns regarding respiratory process. #Acute respiratory failure with hypoxia/influenza A 2009 pandemic strain/secondary bacterial bronchopneumonia-CXR with bronchitis and coughing up yellow sputum, wheezing. No longer requiring supplemental O2 at time of discharge, improving. Sputum culture with moderate normal neyda at time of discharge-final pending Was treated with Tamiflu 75 mg p.o. twice daily, Solu-Medrol 40 mg IV every 8 hours, Cefepime, azithromycin, Mucinex 600 mg p.o. every 12 hours, DuoNebs and had great improvement. Can dc to home on po doxycycline x 5 more days, 3 more days of Tamiflu, and prednisone taper Rxd albuterol inhaler prn for wheezing Sputum cx pending final at time of discharge but with moderate normal neyda on prelim report-f/u after discharge #History nonsustained V. tach/status post cardiac pacemaker/sick sinus syndrome/hypertension- No acute issues-held home losartan/HCTZ, but can resume on discharge. 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 Discussed care with daughter on phone on day of discharge Notes For Next Care Provider None Medication Changes From Visit Added Tamiflu x 3 days, doxycycline x 5 days, albuterol prn and prednisone taper Admission HPI Per Admitting Provider The patient is a 78-year-old male with past medical history including prediabetes, PVCs, nonsustained V. tach, status post placement of cardiac pacemaker, sick sinus syndrome, hypertension, moderate FABI, GERD without esophagitis, CAD, anxiety, hepatic steatosis, and cardiomyopathy. He presents to the emergency department with 3 days of progressively worsening shortness of breath, productive cough, dyspnea on exertion, generalized fatigue and decreased oral intake. Workup in the emergency department included [employer] testing positive for influenza A 2009 strain. Of note, patient had been with his at [facility] about 4 to 5 days ago, and thus has hospital associated exposure for infection as well. He was referred for evaluation for admission due to concerns regarding respiratory process. Discharge Exam Constitutional WD/WN, vitals as above Respiratory normal respiratory effort Auscultation: + wheezes (mild, exp scattered); no crackles and no rales Cardiovascular RRR, no murmur, no edema Gastrointestinal (Abdomen) normal bowel sounds, soft, nontender, no hepatosplenomegaly Psychiatric A+Ox3, euthymic affect Discharge Plan Discharge Items Patient Disposition: Home - Self-Care Reason For Visit: FLU 2009 STRAIN, BRONCHITIS, ACUTE RESP FAIL W/ HY Discharge Diagnosis: Influenza A Acute bronchitis Condition on Discharge: Good Activity: As commented below Lifting: Gradually increase as tolerated Bathing: No limitations Exercise/Sports: Gradually increase as tolerated Non-emergency contact: Primary Care Provider Call non-emergency contact if: you have any medication questions and your symptoms worsen Follow-up/Referrals: Katelyn Jasmine DO [Primary Care Provider] - 04/23/24 10:20 am Diet: Heart Healthy Addtl Attending Provider Instructions: Please finish out 4 more days of prednisone and Tamiflu as well as 5 more days of the antibiotic called doxycycline. You can use the albuterol inhaler as needed for cough or wheezing. Pending Studies at Discharge: Yes (Sputum culture) Stand-Alone Forms: My [employer], Smoking Cessation Medications and DC Order Prescriptions: New oseltamivir 30 mg capsule 30 mg PO BID 3 Days Qty: 6 0RF albuterol sulfate 90 mcg/actuation HFA aerosol inhaler 2 inh inhalation Q4H PRN (Reason: shortness of breath or wheezing) Qty: 8.5 0RF doxycycline hyclate 100 mg tablet 100 mg PO BID Qty: 10 0RF prednisone 10 mg tablet 40 mg PO DAILY Qty: 10 0RF Rx Instructions: x 1 day then decrease by 10mg daily until gone Continued aspirin [Adult Low Dose Aspirin] 81 mg tablet,delayed release (DR/EC) 81 mg PO DAILY Qty: 90 1RF cholecalciferol (vitamin D3) 50 mcg (2,000 unit) capsule 50 mcg PO DAILY Qty: 90 1RF atorvastatin 20 mg tablet 20 mg PO DAILY Qty: 90 3RF metoprolol succinate 100 mg tablet extended release 24 hr 100 mg PO DAILY Qty: 90 1RF losartan-hydrochlorothiazide 50-12.5 mg tablet 1 tab PO DAILY Qty: 90 1RF betamethasone dipropionate 0.05 % cream 1 applic topical BID PRN (Reason: skin irritation) Qty: 45 0RF Centrum Silver 0.4-300-250 mg-mcg-mcg Tablet 1 tab PO DAILY Discontinued sulfamethoxazole-trimethoprim [Bactrim DS] 800-160 mg tablet 1 tab PO BID 7 Days Qty: 14 0RF Discharge Orders: Discharge Order (Routine); Ordered 04/15/24 Ordered By: Vandana Joseph Admission Data Admit Date/Time: 04/14/24 01:27 Attending Provider: Vandana Joseph Admit Provider: Ismael Valerio Primary Care Provider: Katelyn Jasmine Other Providers: Ismael Valerio Hospital Stay Data Consultations 04/14/24 01:07 ED Decision to Admit Stat Pending Results Patient Have Any Pending Studies at Discharge: Yes (Sputum culture) Discharge Instructions Given to Patient (Per Discharging Provider) Please finish out 4 more days of prednisone and Tamiflu as well as 5 more days of the antibiotic called doxycycline. You can use the albuterol inhaler as needed for cough or wheezing. Total Time Total Time Spent Total Time Spent (In Minutes): 35 min Total Time Includes: Examination of the Patient, Discharge Planning and Medication Reconciliation Coding Level of Care Code 88294 INP/OBS DISCH >30 MIN Diagnoses Acute respiratory failure with hypoxia J96.01 Influenza A virus subtype H1 2009 pandemic strain present J10.1 Moderate obstructive sleep apnea G47.33 Bronchopneumonia J18.0
[2024-04-15 14:40] VITALS: BP 109/61
[2024-04-15 15:11] VITALS: PULSE 67
[2024-04-16] MEDS ORDERED: AZITHROMYCIN 250 MG TAB PO SCH (09:00)
== END 2024-04-15 16:13 | disposition home or self-care (01) | DRG 193 ==
LOC: ED 19:45 → SUATTDRO 04-14 01:27 → EDINP 04-14 01:27 → 2N 04-14 02:32